=== PATIENT | female | born 1960 | race Caucasian/White ===

== ENCOUNTER 2016-07-31 07:03 | Emergency (ER) | payer BC ==
[2016-07-31 07:11] VITALS: BP 139/62
--- NOTE | 2016-07-31 11:35 | ED ---
Artis Dimas Alok, scribed for Gato Vuong MD on 07/31/16 at 0750 . Lower Extremity - HPI Summary HPI Summary: 56F presents to the ED with numbness/weakness/pain of the left leg. Pt states that her left leg has been in pain since May 2016 following last chemotherapy session and progressively worsening since. Pt notes pain through her left ankle , calf, and knee. Pt states her pain is worse with bearing weight and at nighttime. Pt also notes swelling at the ball of her left foot. PMHx includes 2014 uterine CA followed by a full hysterectomy 2014. CA then spread to her vagina, lymph nodes, and large intestine. Pt had surgery in 2016 followed by 7 weeks of radiation and 5 sessions of chemotherapy. Pt takes Gabapentin. - History of Current Complaint Chief Complaint: EDGeneral Stated Complaint: LT FOOT PAIN Time Seen by Provider: 07/31/16 07:38 Hx Obtained From: Patient Onset/Duration: Worse Since - Today Severity Initially: Moderate Severity Currently: Moderate Pain Intensity: 10 Pain Scale Used: 0-10 Numeric Timing: Constant Location: Is Discrete @ - left leg Associated Signs And Symptoms: Positive: Swelling, Weakness, Knee Pain, Other - numbness Aggravating Factor(s): Standing, Ambulation, Other - night time Alleviating Factor(s): Nothing - Allergies/Home Medications Allergies/Adverse Reactions: Allergies Allergy/AdvReac Type Severity Reaction Status Date / Time Monosodium Glutamate Allergy Severe Headache Verified 08/06/15 11:13 Bee Venom Allergy Intermediate Hives Verified 08/06/15 11:13 PMH/Surg Hx/FS Hx/Imm Hx Endocrine/Hematology History: Reports: Hx Diabetes Cardiovascular History: Denies: Hx Pacemaker/ICD History: Reports: Hx Renal Disease - RT DISTAL URETERAL STRICTURE., Other Problems/Disorders - Uterine Cancer Musculoskeletal History: Reports: Hx Arthritis - RT HAND Sensory History: Reports: Hx Contacts or Glasses - CONTACTS, WILL WEAR GLASSES DAY OF SURGERY Denies: Hx Hearing Aid Opthamlomology History: Reports: Hx Contacts or Glasses - CONTACTS, WILL WEAR GLASSES DAY OF SURGERY Neurological History: Reports: Other Neuro Impairments/Disorders - concussions x2 Psychiatric History: Reports: Hx Depression Denies: Hx Eating Disorder, Hx Panic Disorder, Hx of Violent Episodes Against Others - Cancer History Cancer Type, Location and Year: UTERINE, 2013 Hx Chemotherapy: No Hx Radiation Therapy: Yes - Surgical History Surgery Procedure, Year, and Place: APPENDECTOMY,. ORAL SURGERY,. SINUS SURGERY,. CARPAL TUNNEL RELEASE,. HYSTERECTOMY Hx Anesthesia Reactions: No Infectious Disease History: No Infectious Disease History: Denies: Traveled Outside the [place] in Last 30 Days - Family History Known Family History: Negative: Cardiac Disease, Hypertension, Diabetes - Social History Occupation: Employed Full-time Lives: With Family Alcohol Use: Rare Alcohol Amount: OCCASSIONALLY 1 DRINK/WEEK Substance Use Type: Reports: None Smoking Status (MU): Never Smoked Tobacco Have You Smoked in the Last Year: No Review of Systems Negative: Fever Positive: Edema, Other - left leg pain/numbness/weakness All Other Systems Reviewed And Are Negative: Yes Physical Exam - Summary Physical Exam Summary: VITAL SIGNS: Reviewed. GENERAL: Patient is a well-developed and nourished female who is lying comfortable in the stretcher. Patient is not in any acute respiratory distress. HEAD AND FACE: No signs of trauma. No ecchymosis, hematomas or skull depressions. No sinus tenderness. EYES: PERRLA, EOMI x 2, No injected conjunctiva, no nystagmus. EARS: Hearing grossly intact. Ear canals and tympanic membranes are within normal limits. MOUTH: Oropharynx within normal limits. NECK: Supple, trachea is midline, no adenopathy, no JVD, no carotid bruit, no c- spine tenderness, neck with full ROM. CHEST: Symmetric, no tenderness at palpation LUNGS: Clear to auscultation bilaterally. No wheezing or crackles. CVS: Regular rate and rhythm, S1 and S2 present, no murmurs or gallops appreciated. ABDOMEN: Soft, non-tender. No signs of distention. No rebound no guarding, and no masses palpated. Bowel sounds are normal. EXTREMITIES: FROM in all major joints, no edema, no cyanosis or clubbing. NEURO: Alert and oriented x 3. No acute neurological deficits. Speech is normal and follows commands. SKIN: Dry and warm Triage Information Reviewed: Yes Vital Signs On Initial Exam: Initial Vitals Temp Pulse Resp BP Pulse Ox 96.9 F 89 20 139/62 98 07/31/16 07:05 07/31/16 07:05 07/31/16 07:05 07/31/16 07:05 07/31/16 07:05 Vital Signs Reviewed: Yes Diagnostics - Vital Signs Vital Signs Temp Pulse Resp BP Pulse Ox 07/31/16 07:11 97.7 F 92 20 139/62 99 07/31/16 07:05 96.9 F 89 20 139/62 98 - Laboratory Lab Statement: Any lab studies that have been ordered have been reviewed, and results considered in the medical decision making process. Lower Extremity Course/Dx - Course Assessment/Plan: 56F presents to the ED with numbness/weakness/pain of the left leg. Pt states that her left leg has been in pain since May 2016 following last chemotherapy session and progressively worsening since. Pt notes pain through her left ankle, calf, and knee. Pt states her pain is worse with bearing weight and at nighttime. Pt also notes swelling at the ball of her left foot. PMHx includes 2014 uterine CA followed by a full hysterectomy 2014. CA then spread to her vagina, lymph nodes, and large intestine. Pt had surgery in 2015 followed by 7 weeks of radiation and 5 sessions of chemotherapy. Pt takes Gabapentin. Checked for pulses, both femoral and pedal pulse present. Pt has h/ o neruopathy and takes neurotin or gabapentin 200 mg per day. Discussed possibilty of increasing dose to 300 mg per day to better control chronic neuropathy. Pt has pain control clinic in [place] and no FU here. Gave [place] [facility] [place] understands and agrees. Pt is hemodynamically stable and was discharged home. - Diagnoses Differential Diagnosis/HQI/PQRI: Positive: Fracture (Closed), Sprain, Strain, Other - Neuropathy Provider Diagnoses: Neuropathy Discharge - Discharge Plan Condition: Stable Disposition: HOME Patient Education Materials: Peripheral Neuropathy (ED) Additional Instructions: [facility] [address] , [place] [address] The documentation as recorded by the Artis miller Alok accurately reflects the service I personally performed and the decisions made by , Gato Vuong MD.
== END 2016-07-31 08:30 | disposition home or self-care (01) ==
LOC: ED 07:03
DX: E11.40 Type 2 diabetes mellitus with diabetic neuropathy, unspecified (principal); N28.9 Disorder of kidney and ureter, unspecified; M19.041 Primary osteoarthritis, right hand; F32.9 Major depressive disorder, single episode, unspecified; Z90.710 Acquired absence of both cervix and uterus
CPT/HCPCS: 99281

== ENCOUNTER 2017-05-06 12:03 | Emergency (ER) | payer BC ==
[2017-05-06] MEDS ORDERED: NS 0.9% 1000 ML* 1,000 ML IV ONE (12:35)
[2017-05-06] MEDS ORDERED: Morphine INJ* 4 MG/ML 1 ML SYRINGE (NEW SYRINGE VERSION) IV ONE (12:38)
[2017-05-06] MEDS ORDERED: Ondansetron INJ* 2 MG/ML VIAL IV ONE (12:38)
--- NOTE | 2017-05-06 13:15 | RAD ---
Indication: Shortness of breath, bilateral flank pain and pelvis pain for one week. History of malignant neoplasm of the endometrium. Comparison: July 30, 2015 CT. August 06, 2008 chest radiograph. Technique: Upright AP 1255 hours Report: Tip of the LEFT chest port is at the level of the inferior segment of the superior vena cava directed central. Elevated lung volumes with upper lung zone rarefaction of interstitial markings. 0.7 cm well-circumscribed nodular density at the RIGHT lower lung zone peripherally at the level of the fifth intercostal space is new compared with the prior exams. The lungs and pleural spaces are otherwise clear. The heart, pulmonary vasculature, and mediastinal contours are unremarkable. Thoracic degenerative spondylosis. IMPRESSION: 1. Stigmata of probable obstructive lung disease. 2. No evidence for pneumonia or pulmonary edema. 3. 0.7 cm well-circumscribed nodular density at the RIGHT lower lung zone peripherally at the level of the fifth intercostal space is new compared with the prior exams. Consider CT chest for further assessment.
[2017-05-06 13:29] LABS: ABS Basophils 0 10^3/ul (0-0.2); ABS Eosinophils 0 10^3/ul (0-0.6); ABS Lymphocytes 0.8 10^3/ul (1.0-4.8); ABS Monocytes 0.3 10^3/ul (0-0.8); ABS Neutrophils 4.7 10^3/ul (1.5-7.7); ABS Nucleated RBC 0 10^3/ul; Eosinophil % 0.5 % (0-6); Hematocrit 40 % (35-47); Hemoglobin 13.8 g/dl (12.0-16.0); Lymphocyte % 14.1 % (25-47); Mean Corpuscular HGB Conc 35 g/dl (31-36); Mean Corpuscular Hemoglobin 31 pg (27-31); Mean Corpuscular Volume 89 fL (80-97); Mean Platelet Volume 8.1 um3 (7.4-10.4); Nucleated Red Blood Cells % 0; Platelet Count 194 10^3/ul (150-450); Red Blood Count 4.49 10^6/ul (4.0-5.4); Red Cell Distribution Width 13 % (10.5-15); White Blood Count 5.9 10^3/ul (3.5-10.8)
[2017-05-06 13:51] LABS: EGFR Non-African American 84.8 (>60)
[2017-05-06 13:58] LABS: Urine Appearance Cloudy; Urine Blood Negative (Negative); Urine Color Yellow; Urine Ketones 1+ (Negative); Urine Protein Negative (Negative); Urine Specific Gravity 1.027 (1.010-1.030); Urine Urobilinogen Negative (Negative)
[2017-05-06] MEDS ORDERED: Iodixanol* (CONTRAST) 320 MG/ML 100 ML SDV IV ONE (14:08)
--- NOTE | 2017-05-06 15:45 | RAD ---
HISTORY: Uterine cancer, abdominal pain, diverticulitis, shortness of breath COMPARISONS: July 30, 2015 TECHNIQUE: Multiple contiguous axial CT scans were obtained of the chest, abdomen, and pelvis after the administration of intravenous contrast. Coronal and sagittal multiplanar reformations are submitted for review.. Oral contrast was administered. Delayed images were obtained through the abdomen and pelvis. FINDINGS: CHEST NECK AND THYROID: The lower neck and thyroid are unremarkable. CHEST WALL: A left-sided chest port is noted. HEART AND PERICARDIUM: The heart is unremarkable. AORTA AND PULMONARY VASCULATURE: There is no pulmonary arterial filling defect to suggest pulmonary was. The aorta is unremarkable. MEDIASTINUM: There is no mediastinal lymphadenopathy by size criteria. ZORAIDA: There is no hilar lymphadenopathy by size criteria. AIRWAY AND ESOPHAGUS: The airway is unremarkable, without endobronchial filling defect. The esophagus is grossly normal. LUNG PARENCHYMA: There has been interval development of multiple pulmonary parenchymal nodules throughout both lungs, measuring up to 1 cm in size. PLEURA: No pleural abnormalities are noted. BONES AND SOFT TISSUES: Degenerative changes are noted of the spine. There is a scoliotic curvature of the spine. ABDOMEN/PELVIS: LIVER: The liver is homogeneously enlarged measuring 20 cm in long axis. There is no appreciable focal hepatic parenchymal mass. BILE DUCTS: There is no intrahepatic or extrahepatic biliary dilatation. GALLBLADDER: The gallbladder is normal, without pericholecystic inflammatory change. PANCREAS: The pancreas is normal, without mass or ductal dilatation. SPLEEN: Normal in size and appearance. UPPER GI TRACT: Evaluation of the gastrointestinal tract is limited by incomplete gastric distention. The upper GI tract is unremarkable. SMALL BOWEL & MESENTERY: The small bowel is normal in contour, course, and caliber. There is no obstruction or dilatation. COLON: The colon is normal in contour, course, caliber. There is no pericolonic inflammatory change. ADRENALS: Normal bilaterally. KIDNEYS: There is post surgical change to the distal colon. BLADDER: There appears to be a neobladder. PELVIC ORGANS: The soft tissue densities noted at the vaginal cuff on the previous examination are no longer evident. AORTA: The aorta is normal. IVC: Unremarkable LYMPH NODES: There is no lymphadenopathy by size criteria. The retroperitoneal lymph nodes nodes noted on the previous examination are no longer clearly evident. ABDOMINAL WALL: There is no evidence for abdominal wall hernia. BONES AND SOFT TISSUES: Degenerative changes are noted of the spine OTHER: None IMPRESSION: 1. NO PULMONARY ARTERIAL FILLING DEFECT TO SUGGEST PULMONARY EMBOLISM. 2. THERE HAS BEEN INTERVAL DEVELOPMENT OF MULTIPLE PULMONARY PARENCHYMAL NODULES THROUGHOUT THE LUNGS CONSISTENT WITH METASTATIC DISEASE TO THE LUNGS. 3. HEPATOMEGALY. 4. NO ACUTE CT PATHOLOGY OF THE ABDOMEN AND PELVIS.
[2017-05-06] MEDS ORDERED: Sulfamethox/Trimethoprim DS 800/160* TAB PO ONE (16:40)
--- NOTE | 2017-05-06 17:01 | ED ---
Tiffanie Dimas Gabriel, scribed for Shaka Jeffery on 05/06/17 at 1232 . Back Pain - HPI Summary HPI Summary: This patient is a 57 year old F presenting to [facility] with a chief complaint of bilateral flank pain that began a week ago. Pt had uterine cancer in 2016 and after her first round of chemo she experienced a similar pain that was dx as kidney infection. The patient rates the pain 10/10 in severity. Symptoms alleviated by nothing, pt has tried OTC pain medications. Patient reports SOB, pelvic pain, and mild edema in LEs. Patient denies hematuria, blood in stool, and CP. - History of Current Complaint Chief Complaint: EDFlankPain Stated Complaint: ABD PAIN Time Seen by Provider: 05/06/17 12:15 Hx Obtained From: Patient Onset/Duration: Still Present Onset/Duration: Started Weeks Ago, Still Present Timing: Constant Severity Initially: Severe Severity Currently: Severe Pain Intensity: 10 Pain Scale Used: 0-10 Numeric Alleviating Symptom(s): Nothing Associated Signs And Symptoms: Positive: Other - SOB, pelvic pain, mild edema - Allergies/Home Medications Allergies/Adverse Reactions: Allergies Allergy/AdvReac Type Severity Reaction Status Date / Time bee pollen Allergy Hives Verified 05/06/17 12:06 monosodium glutamate Allergy Headache Verified 05/06/17 12:06 PMH/Surg Hx/FS Hx/Imm Hx Endocrine/Hematology History: Reports: Hx Diabetes Cardiovascular History: Denies: Hx Pacemaker/ICD History: Reports: Hx Renal Disease - RT DISTAL URETERAL STRICTURE., Other Problems/Disorders - Uterine Cancer Musculoskeletal History: Reports: Hx Arthritis - RT HAND Sensory History: Reports: Hx Contacts or Glasses - CONTACTS, WILL WEAR GLASSES DAY OF SURGERY Denies: Hx Hearing Aid Opthamlomology History: Reports: Hx Contacts or Glasses - CONTACTS, WILL WEAR GLASSES DAY OF SURGERY Neurological History: Reports: Other Neuro Impairments/Disorders - concussions x2 Psychiatric History: Reports: Hx Depression Denies: Hx Eating Disorder, Hx Panic Disorder, Hx of Violent Episodes Against Others - Cancer History Cancer Type, Location and Year: UTERINE, 2014 Hx Chemotherapy: No Hx Radiation Therapy: Yes - Surgical History Surgery Procedure, Year, and Place: APPENDECTOMY,. ORAL SURGERY,. SINUS SURGERY,. CARPAL TUNNEL RELEASE,. HYSTERECTOMY Hx Anesthesia Reactions: No Infectious Disease History: No Infectious Disease History: Denies: Traveled Outside the US in Last 30 Days - Family History Known Family History: Positive: None Negative: Cardiac Disease, Hypertension, Diabetes - Social History Lives: With Family Alcohol Use: Rare Alcohol Amount: OCCASSIONALLY 1 DRINK/WEEK Substance Use Type: Reports: None Smoking Status (MU): Never Smoked Tobacco Have You Smoked in the Last Year: No Review of Systems Negative: Chest Pain Positive: Shortness Of Breath Gastrointestinal: Negative - blood in stool Positive: flank pain - bilateral . Negative: hematuria Positive: Edema - mild edema in LE 's , Other - pelvic pain, All Other Systems Reviewed And Are Negative: Yes Physical Exam - Summary Physical Exam Summary: Appearance: Well appearing, no pain distress Skin: warm, dry, reflects adequate perfusion Head/face: normal Eyes: EOMI, UMER ENT: normal Neck: supple, non-tender Respiratory: CTA, breath sounds present Cardiovascular: RRR, pulses symmetrical Abdomen: soft w/ diffuse tenderness Bowel: present Musculoskeletal: normal, strength/ROM intact Neuro: normal, sensory motor intact, A&Ox3 Triage Information Reviewed: Yes Vital Signs On Initial Exam: Initial Vitals Temp Pulse Resp BP Pulse Ox 96.6 F 67 22 127/59 100 05/06/17 12:06 05/06/17 12:06 05/06/17 12:06 05/06/17 12:06 05/06/17 12:06 Vital Signs Reviewed: Yes Diagnostics - Vital Signs Vital Signs Temp Pulse Resp BP Pulse Ox 05/06/17 12:22 66 30 100 05/06/17 12:06 96.6 F 67 22 127/59 100 - Laboratory Lab Results: Lab Results 05/06/17 05/06/17 05/06/17 Range/Units 13:05 13:05 13:05 WBC 5.9 (3.5-10.8) 10^3/ul RBC 4.49 (4.0-5.4) 10^6/ul Hgb 13.8 (12.0-16.0) g/dl Hct 40 (35-47) % MCV 89 (80-97) fL MCH 31 (27-31) pg MCHC 35 (31-36) g/dl RDW 13 (10.5-15) % Plt Count 194 (150-450) 10^3/ul MPV 8.1 (7.4-10.4) um3 Neut % (Auto) 80.7 (38-83) % Lymph % (Auto) 14.1 L (25-47) % [place] % (Auto) 4.6 (0-7) % Eos % (Auto) 0.5 (0-6) % Baso % (Auto) 0.1 (0-2) % Absolute Neuts (auto) 4.7 (1.5-7.7) 10^3/ul Absolute Lymphs (auto) 0.8 L (1.0-4.8) 10^3/ul Absolute Monos (auto) 0.3 (0-0.8) 10^3/ul Absolute Eos (auto) 0 (0-0.6) 10^3/ul Absolute Basos (auto) 0 (0-0.2) 10^3/ul Absolute Nucleated RBC 0 10^3/ul Nucleated RBC % 0 INR (Anticoag Therapy) 0.90 (0.77-1.02) APTT 28.1 (26.0-36.3) seconds D-Dimer, Quantitative < 200 (Less Than 230) ng/mL Sodium 138 (133-145) mmol/L Potassium 4.1 (3.5-5.0) mmol/L Chloride 101 (101-111) mmol/L Carbon Dioxide 27 (22-32) mmol/L Anion Gap 10 (2-11) mmol/L BUN 14 (6-24) mg/dL Creatinine 0.71 (0.51-0.95) mg/dL Est GFR ( Amer) 109.1 (>60) Est GFR (Non-Af Amer) 84.8 (>60) BUN/Creatinine Ratio 19.7 (8-20) Glucose 311 H (70-100) mg/dL Lactic Acid (0.5-2.0) mmol/L Calcium 10.3 (8.6-10.3) mg/dL Total Bilirubin 0.60 (0.2-1.0) mg/dL AST 13 (13-39) U/L ALT 11 (7-52) U/L Alkaline Phosphatase 89 (34-104) U/L Troponin I 0.00 (<0.04) ng/mL C-Reactive Protein 1.42 (< 5.00) mg/L Total Protein 7.7 (6.4-8.9) g/dL Albumin 4.4 (3.2-5.2) g/dL Globulin 3.3 (2-4) g/dL Albumin/Globulin Ratio 1.3 (1-3) Lipase 18 (11.0-82.0) U/L Urine Color Urine Appearance Urine pH (5-9) Ur Specific [place] (1.010-1.030) Urine Protein (Negative) Urine Ketones (Negative) Urine Blood (Negative) Urine Nitrate (Negative) Urine Bilirubin (Negative) Urine Urobilinogen (Negative) Ur Leukocyte Esterase (Negative) Urine WBC (Auto) (Absent) Urine RBC (Auto) (Absent) Urine Bacteria (Absent) Urine Glucose (Negative) Urine Ascorbic Acid (Negative) 05/06/17 05/06/17 Range/Units 13:05 13:45 WBC (3.5-10.8) 10^3/ul RBC (4.0-5.4) 10^6/ul Hgb (12.0-16.0) g/dl Hct (35-47) % MCV (80-97) fL MCH (27-31) pg MCHC (31-36) g/dl RDW (10.5-15) % Plt Count (150-450) 10^3/ul MPV (7.4-10.4) um3 Neut % (Auto) (38-83) % Lymph % (Auto) (25-47) % [place] % (Auto) (0-7) % Eos % (Auto) (0-6) % Baso % (Auto) (0-2) % Absolute Neuts (auto) (1.5-7.7) 10^3/ul Absolute Lymphs (auto) (1.0-4.8) 10^3/ul Absolute Monos (auto) (0-0.8) 10^3/ul Absolute Eos (auto) (0-0.6) 10^3/ul Absolute Basos (auto) (0-0.2) 10^3/ul Absolute Nucleated RBC 10^3/ul Nucleated RBC % INR (Anticoag Therapy) (0.77-1.02) APTT (26.0-36.3) seconds D-Dimer, Quantitative (Less Than 230) ng/mL Sodium (133-145) mmol/L Potassium (3.5-5.0) mmol/L Chloride (101-111) mmol/L Carbon Dioxide (22-32) mmol/L Anion Gap (2-11) mmol/L BUN (6-24) mg/dL Creatinine (0.51-0.95) mg/dL Est GFR ( Amer) (>60) Est GFR (Non-Af Amer) (>60) BUN/Creatinine Ratio (8-20) Glucose (70-100) mg/dL Lactic Acid 2.0 (0.5-2.0) mmol/L Calcium (8.6-10.3) mg/dL Total Bilirubin (0.2-1.0) mg/dL AST (13-39) U/L ALT (7-52) U/L Alkaline Phosphatase (34-104) U/L Troponin I (<0.04) ng/mL C-Reactive Protein (< 5.00) mg/L Total Protein (6.4-8.9) g/dL Albumin (3.2-5.2) g/dL Globulin (2-4) g/dL Albumin/Globulin Ratio (1-3) Lipase (11.0-82.0) U/L Urine Color Yellow Urine Appearance Cloudy Urine pH 7.0 (5-9) Ur Specific [place] 1.027 (1.010-1.030) Urine Protein Negative (Negative) Urine Ketones 1+ A (Negative) Urine Blood Negative (Negative) Urine Nitrate Positive A (Negative) Urine Bilirubin Negative (Negative) Urine Urobilinogen Negative (Negative) Ur Leukocyte Esterase 2+ A (Negative) Urine WBC (Auto) 3+(>20/hpf) A (Absent) Urine RBC (Auto) 1+(3-5/hpf) A (Absent) Urine Bacteria 1+ A (Absent) Urine Glucose 3+(>=500 mg/dl) A (Negative) Urine Ascorbic Acid * A (Negative) Result Diagrams: 05/06/17 13:05 05/06/17 13:05 Lab Statement: Any lab studies that have been ordered have been reviewed, and results considered in the medical decision making process. - Radiology CXR Radiology Interpretation Completed By: Radiologist - 1. Stigmata of probable obstructive lung disease. 2. No evidence for pneumonia or pulmonary edema. 3. 0.7 cm well-circumscribed nodular density at the RIGHT lower lung zone peripherally at the level of the fifth intercostal space is new compared with the prior exams. Consider CT chest for further assessment. ED physician has reviewed this radiology report. - CT CTA chest/abd/pelvis CT Interpretation Completed By: Radiologist - 1. NO PULMONARY ARTERIAL FILLING DEFECT TO SUGGEST PULMONARY EMBOLISM. 2. THERE HAS BEEN INTERVAL DEVELOPMENT OF MULTIPLE PULMONARY PARENCHYMAL NODULES THROUGHOUT THE LUNGS CONSISTENT WITH METASTATIC DISEASE TO THE LUNGS. 3. HEPATOMEGALY. 4. NO ACUTE CT PATHOLOGY OF THE ABDOMEN AND PELVIS. ED physician has reviewed this radiology report. - EKG 12:46 Cardiac Rate: NL EKG Rhythm: Sinus Rhythm - at 63 BPM EKG Interpretation: No acute changes Re-Evaluation - Re-Evaluation First Eval Re-Evaluation Time: 16:36 Change: Unchanged Comment: I explained to the patient her cancer metastasized to the lungs and discussed further care. Back Pain Course/Dx - Course Assessment/Plan: Pt present to ED with back pain and hx of cancer. An EKG reveals NSR. CXR reveals, per radiologist, 1. Stigmata of probable obstructive lung disease. 2. No evidence for pneumonia or pulmonary edema. 3. 0.7 cm well- circumscribed nodular density at the RIGHT lower lung zone peripherally at. the level of the fifth intercostal space is new compared with the prior exams. Consider CT. chest for further assessment. CTA Chest/ABD/ Pelvis reveals, 1. NO PULMONARY ARTERIAL FILLING DEFECT TO SUGGEST PULMONARY EMBOLISM. 2. THERE HAS BEEN INTERVAL DEVELOPMENT OF MULTIPLE PULMONARY PARENCHYMAL NODULES. THROUGHOUT THE LUNGS CONSISTENT WITH METASTATIC DISEASE TO THE LUNGS. 3. HEPATOMEGALY. 4. NO ACUTE CT PATHOLOGY OF THE ABDOMEN AND PELVIS. I explained to the patient about the recent metastases of her cancer and suggested she follow up with oncology. She decided to contact her own oncologist and would not like to use any through [facility] [place]. UA and blood work obtained. In the ED course the patient was given morphine, Bactrim, Zofran, and IV fluids. Dx UTI, hx uterine cancer with metastases to lungs, ABD pain. Patient will be discharged and follow up with oncologist. The patient is agreeable with this plan. - Diagnoses Differential Diagnosis/HQI/PQRI: Positive: Neoplasm, Renal Colic, Other - diverticulitis Provider Diagnoses: History of uterine cancer, UTI (urinary tract infection), Cancer with pulmonary metastases, Abdominal pain Discharge - Sign-Out/Discharge Documenting (check all that apply): Discharge - Discharge Plan Condition: Stable Disposition: HOME Prescriptions: HYDROcodone/ACETAMIN 5-325 MG* [[place] 5-325 TAB*] 1 tab PO Q8H PRN #15 tab MDD 3 PRN Reason: Pain Sulfamethox/Trimethoprim DS* [Bactrim DS 800/160 TAB*] 1 tab PO BID #10 tab Patient Education Materials: Urinary Tract Infection in Women (ED), Lung Cancer (DC) Additional Instructions: Please follow up with your oncologist JEFFRY. RETURN TO THE EMERGENCY DEPARTMENT FOR CHANGING OR WORSENING SYMPTOMS - Billing Disposition and Condition Condition: STABLE Disposition: HOME The documentation as recorded by the Tiffanie miller Gabriel accurately reflects the service I personally performed and the decisions made by , Shaka Jeffery.
[2017-05-06 17:03] VITALS: BP 114/66
--- NOTE | 2017-05-08 09:22 | PN ---
Progress Note - Progress Note Date of Service: 05/06/17 Note: Urine culture preliminary grew Escherichia coli over 100,000 Patient was placed on Bactrim prior to discharge We'll await sensitivities
--- NOTE | 2017-05-09 08:48 | ED ---
Progress - Progress Note Progress Note: Pt admitted for MRSA/Staph bacteremia. Has been started on IV vancomycin. Jolanta Fowler CONFERENCE DIRECTOR aware. Re-Evaluation - Re-Evaluation First Eval Re-Evaluation Time: 16:36 Change: Unchanged Comment: I explained to the patient her cancer metastasized to the lungs and discussed further care. Course/Dx - Diagnoses Provider Diagnoses: History of uterine cancer, UTI (urinary tract infection), Cancer with pulmonary metastases, Abdominal pain Discharge - Sign-Out/Discharge Documenting (check all that apply): Post-Discharge Follow Up - Discharge Plan Condition: Stable Disposition: HOME Prescriptions: HYDROcodone/ACETAMIN 5-325 MG* [[place] 5-325 TAB*] 1 tab PO Q8H PRN #15 tab MDD 3 PRN Reason: Pain Sulfamethox/Trimethoprim DS* [Bactrim DS 800/160 TAB*] 1 tab PO BID #10 tab Patient Education Materials: Urinary Tract Infection in Women (ED), Lung Cancer (DC) Referrals: No Primary Care Phys,NOPCP [Primary Care Provider] - Additional Instructions: Please follow up with your oncologist JEFFRY. RETURN TO THE EMERGENCY DEPARTMENT FOR CHANGING OR WORSENING SYMPTOMS - Billing Disposition and Condition Condition: STABLE Disposition: HOME
== END 2017-05-06 17:01 | disposition home or self-care (01) ==
LOC: ED 12:03
DX: N39.0 Urinary tract infection, site not specified (principal); Z85.42 Personal history of malignant neoplasm of other parts of uterus; R10.9 Unspecified abdominal pain; C34.90 Malignant neoplasm of unspecified part of unspecified bronchus or lung; Z86.14 Personal history of Methicillin resistant Staphylococcus aureus infection
CPT/HCPCS: 36415; 71045; 71275; 74177; 80053; 81003; 81015; 83605; 83690; 84484; 85025; 85379; 85610; 85730; 86140; 87077; 87086; 87186; 93005; 96374; 96375; 99283; A9270-GY; J2270; Q9967

== ENCOUNTER 2017-06-09 07:19 | Emergency (ER) | payer BC ==
[2017-06-09] MEDS ORDERED: Ondansetron ODT TAB* 4 MG SL ONE (07:33)
[2017-06-09] MEDS ORDERED: Ketorolac INJ* 60 MG/2 ML VIAL IM ONE (07:33)
[2017-06-09 08:15] LABS: Urine Appearance Clear; Urine Blood Negative (Negative); Urine Color Yellow; Urine Ketones Negative (Negative); Urine Protein Negative (Negative); Urine Specific Gravity 1.032 (1.010-1.030); Urine Urobilinogen Negative (Negative)
[2017-06-09] MEDS ORDERED: NS 0.9% 1000 ML* 2,000 ML IV ONE (09:09)
[2017-06-09] MEDS ORDERED: cefTRIAXone(*) 1 GM in NS 0.9% 50 ML* 50 ML IVPB ONE (09:12)
[2017-06-09 09:57] LABS: ABS Basophils 0 10^3/ul (0-0.2); ABS Eosinophils 0 10^3/ul (0-0.6); ABS Lymphocytes 0.8 10^3/ul (1.0-4.8); ABS Monocytes 0.3 10^3/ul (0-0.8); ABS Neutrophils 4.2 10^3/ul (1.5-7.7); ABS Nucleated RBC 0 10^3/ul; Eosinophil % 0.9 % (0-6); Hematocrit 39 % (35-47); Lymphocyte % 15.2 % (25-47); Mean Corpuscular HGB Conc 33 g/dl (31-36); Mean Corpuscular Hemoglobin 30 pg (27-31); Mean Corpuscular Volume 89 fL (80-97); Mean Platelet Volume 8.1 um3 (7.4-10.4); Nucleated Red Blood Cells % 0; Platelet Count 195 10^3/ul (150-450); Red Blood Count 4.39 10^6/ul (4.0-5.4); Red Cell Distribution Width 13 % (10.5-15); White Blood Count 5.4 10^3/ul (3.5-10.8)
[2017-06-09 10:08] LABS: INR 0.97 (0.77-1.02)
[2017-06-09 10:13] LABS: EGFR Non-African American 97.4 (>60)
--- NOTE | 2017-06-09 12:15 | RAD ---
Indication: LEFT flank pain. History of uterine cancer cystectomy and urinary bladder reconstruction. Comparison: May 06, 2017 CT. Technique: Ultrasound kidneys and urinary bladder. Report: 11.7 x 4.3 x 5.5 cm RIGHT kidney demonstrates normal cortical echogenicity. Slight pelvicaliectasis. No conspicuous stones or focal renal lesions. 13.3 x 5.7 x 5.3 cm LEFT kidney demonstrates normal cortical echogenicity. No conspicuous stones or hydronephrosis. No focal renal lesions evident. Negative for perinephric fluid. The reconstructed urinary bladder could not be visualized. Based on the sonographic images at the pelvis and correlation with May 06, 2017 CT the acoustic window is obscured due to gas containing bowel loops anterior to the neobladder. IMPRESSION: 1. Slight pelvic caliectasis at the RIGHT kidney. 2. Negative for LEFT hydronephrosis. 3. The neobladder could not be visualized likely due to overlying gas containing bowel loops based on correlation with prior CT.
--- NOTE | 2017-06-09 13:34 | ED ---
Yordy Dimas Jennifer, scribed for Viet Roberts MD on 06/09/17 at 0844 . GI/ HPI - HPI Summary HPI Summary: The patient is a 57 year old female who complains of left flank pain and urinary symptoms for about two weeks that worsened this morning. The patient explains that she had uterine cancer in 2016 that she had surgery on, but a recent CT showed concerns of returning cancer. She describes that the pain is from her left hip up through her waist. She states the pain is worsened by standing and over the course of the day when she is busy. The patient additionally complains of increased urgency, back pain, fever, feeling cold, nausea, abdominal pain, shortness of breath, and fatigue. The patient denies dysuria. She has an appointment with Dr. Bautista, oncologist, for Tuesday in four days. - History of Current Complaint Chief Complaint: EDFlankPain Time Seen by Provider: 06/09/17 08:37 Stated Complaint: FLANK PAIN Hx Obtained From: Patient Onset/Duration: Started Days Ago - 1 day, Started Weeks Ago - 2 weeks, Still Present, Worse Since - this morning Timing: Constant Severity: Severe Current Severity: Severe Pain Intensity: 10 Location of Pain: Diffuse, Flank - Left Associated Signs and Symptoms: Positive: Other: - increased urgency, back pain, fever, feeling cold, nausea, abdominal pain, shortness of breath, and fatigue. NEGATIVE: dysuria Additional Signs & Symptoms: Positive: Other: - increased urgency, back pain, fever, feeling cold, nausea, abdominal pain, shortness of breath, and fatigue. NEGATIVE: dysuria Aggravating Factor(s): Walking/Exertion Alleviating Factor(s): Nothing - Additional Pertinent History Primary Care Physician: [id number] - Allergy/Home Medications Allergies/Adverse Reactions: Allergies Allergy/AdvReac Type Severity Reaction Status Date / Time bee pollen Allergy Hives Verified 06/09/17 07:21 monosodium glutamate Allergy Headache Verified 06/09/17 07:21 Home Medications: Home Medications Glucosamine CAP (NF) 1 cap PO DAILY 06/09/17 [History Confirmed 06/09/17] PMH/Surg Hx/FS Hx/Imm Hx Endocrine/Hematology History: Reports: Hx Diabetes Cardiovascular History: Denies: Hx Hypertension, Hx Pacemaker/ICD History: Reports: Hx Renal Disease - RT DISTAL URETERAL STRICTURE., Other Problems/Disorders - Uterine Cancer Musculoskeletal History: Reports: Hx Arthritis - RT HAND Sensory History: Reports: Hx Contacts or Glasses - CONTACTS, WILL WEAR GLASSES DAY OF SURGERY Denies: Hx Hearing Aid Opthamlomology History: Reports: Hx Contacts or Glasses - CONTACTS, WILL WEAR GLASSES DAY OF SURGERY Neurological History: Reports: Other Neuro Impairments/Disorders - concussions x2 Psychiatric History: Reports: Hx Depression Denies: Hx Eating Disorder, Hx Panic Disorder, Hx of Violent Episodes Against Others - Cancer History Cancer Type, Location and Year: UTERINE, 2014 Hx Chemotherapy: No Hx Radiation Therapy: Yes - Surgical History Surgery Procedure, Year, and Place: APPENDECTOMY,. ORAL SURGERY,. SINUS SURGERY,. CARPAL TUNNEL RELEASE,. HYSTERECTOMY Hx Anesthesia Reactions: No Infectious Disease History: No Infectious Disease History: Denies: Traveled Outside the [place] in Last 30 Days - Family History Known Family History: Negative: Cardiac Disease, Hypertension, Diabetes - Social History Occupation: Employed Full-time Alcohol Use: Rare Alcohol Amount: OCCASSIONALLY 1 DRINK/WEEK Substance Use Type: Reports: None Smoking Status (MU): Never Smoked Tobacco Have You Smoked in the Last Year: No Review of Systems Positive: Fever, Fatigue, Other - Feeling cold Positive: Shortness Of Breath Positive: Abdominal Pain, Nausea Positive: flank pain - left, urgency. Negative: dysuria All Other Systems Reviewed And Are Negative: Yes Physical Exam - Summary Physical Exam Summary: General: mildly ill-appearing. no pain distress Skin: warm, color reflects adequate perfusion, dry Head: normal Eyes: EOMI, UMER ENT: normal Neck: supple, nontender Respiratory: CTA, breath sounds present Cardiovascular: RRR Abdomen: soft, tender in suprapubic region Bowel: present Musculoskeletal: normal, strength/ROM intact Neurological: Tender to both flanks, much more so on the left flank. sensory/ motor intact, A&O x3 Psychological: affect/mood appropriate Triage Information Reviewed: Yes Vital Signs On Initial Exam: Initial Vitals Temp Pulse Resp BP Pulse Ox 96.9 F 72 16 133/70 100 06/09/17 07:21 06/09/17 07:21 06/09/17 07:21 06/09/17 07:21 06/09/17 07:21 Vital Signs Reviewed: Yes Diagnostics - Vital Signs Vital Signs Temp Pulse Resp BP Pulse Ox 06/09/17 07:21 96.9 F 72 16 133/70 100 - Laboratory Lab Results: Lab Results 06/09/17 Range/Units 07:50 Urine Color Yellow Urine Appearance Clear Urine pH 6.0 (5-9) Ur Specific [place] 1.032 H (1.010-1.030) Urine Protein Negative (Negative) Urine Ketones Negative (Negative) Urine Blood Negative (Negative) Urine Nitrate Positive A (Negative) Urine Bilirubin Negative (Negative) Urine Urobilinogen Negative (Negative) Ur Leukocyte Esterase Trace A (Negative) Urine WBC (Auto) 3+(>20/hpf) A (Absent) Urine RBC (Auto) Trace(0-2/hpf) (Absent) Ur Squamous Epith Cells Present A (Absent) Urine Bacteria 1+ A (Absent) Urine Glucose 3+(>=500 mg/dl) A (Negative) Result Diagrams: 06/09/17 09:35 06/09/17 09:35 Lab Statement: Any lab studies that have been ordered have been reviewed, and results considered in the medical decision making process. - Additional Comments Diagnostic Additional Comments: Abdomen/bladder US. Interpreted by a radiologist. IMPRESSION: 1. Slight pelvic caliectasis at the RIGHT kidney. 2. Negative for LEFT hydronephrosis. 3. The neobladder could not be visualized likely due to overlying gas containing bowel loops based on correlation with prior CT. Dr. Roberts has reviewed this report. GIGU Course/Dx - Course Course Of Treatment: DISCUSSED RESULTS WITH THE PATIENT. DISCUSSED WITH DR BHATTI. F/U WITH DR MACIAS 06/13/17 SCHEDULED; RETURN SOONER IF WORSE. - Diagnoses Provider Diagnoses: Bilateral flank pain, UTI (urinary tract infection) - Physician Notifications Discussed Care Of Patient With: Annabelle Bhatti Time Discussed With Above Provider: 13:06 Instructed by Provider To: Other - Discussed pt care with Dr. Bhatti Discharge - Sign-Out/Discharge Documenting (check all that apply): Discharge/Admit/Transfer - Discharge Plan Condition: Stable Disposition: HOME Patient Education Materials: Flank Pain (ED), Urinary Tract Infection in Women (ED) Referrals: Landon Macias MD [Primary Care Provider] - Additional Instructions: FOLLOW UP WITH DR MACIAS ON 06/13/17, SCHEDULED. RETURN TO THE EMERGENCY DEPARTMENT FOR ANY WORSENING OF YOUR CONDITION OR QUESTIONS OR CONCERNS. - Billing Disposition and Condition Condition: STABLE Disposition: HOME The documentation as recorded by the Yordy miller Jennifer accurately reflects the service I personally performed and the decisions made by me, Viet Roberts MD.
[2017-06-09 13:48] VITALS: BP 120/69
--- NOTE | 2017-06-11 07:42 | PN ---
Progress Note - Progress Note Date of Service: 06/09/17 Note: Pt. seen in ER 06/09/17 and dx with a UTI. Was started on Bactrim. Preliminary urine culture today is growing >100,000 e. coli. Will wait for sensitivity.
== END 2017-06-09 13:46 | disposition home or self-care (01) ==
LOC: ED 07:19
DX: N39.0 Urinary tract infection, site not specified (principal); R10.84 Generalized abdominal pain; R50.9 Fever, unspecified; R10.9 Unspecified abdominal pain; R11.0 Nausea
CPT/HCPCS: 10022; 36415; 76770; 76942; 80053; 81003; 81015; 83605; 85025; 85610; 85730; 86140; 87040; 87077; 87086; 87186; 99283; A9270-GY; J0696; J1885

== ENCOUNTER 2017-09-24 12:28 | Emergency (ER) | payer SELFPAY ==
[2017-09-24] MEDS ORDERED: NS 0.9% 1000 ML* 1,000 ML IV ONE (15:10)
--- NOTE | 2017-09-24 15:12 | ED ---
Shortness of Breath - HPI Summary HPI Summary: This patient is a 57 year old F referred to [facility] by Dr. Bautista with a chief complaint of SOB that began one month ago. The patient rates the pain 10/10 in severity. Symptoms aggravated by activity. Symptoms alleviated by nothing. Patient reports mid-sternal CP, back pain, and abd cramping. Patient reports she has endometrial cancer that has metastasized to her lungs. She reports that her last chemo treatment was one month ago. - History of Current Complaint Chief Complaint: EDShortnessOfBreath Time Seen by Provider: 09/24/17 14:57 Hx Obtained From: Patient Onset/Duration: Sudden Onset, Lasting Weeks, Still Present Timing: Constant Current Severity: Severe Dyspnea At: Rest Aggrevating Factors: Movement Alleviating Factors: Nothing Associated Signs & Symptoms: Chest Pain Unrelated to Cough - Allergy/Home Medications Allergies/Adverse Reactions: Allergies Allergy/AdvReac Type Severity Reaction Status Date / Time bee pollen Allergy Hives Verified 06/09/17 07:21 monosodium glutamate Allergy Headache Verified 06/09/17 07:21 PMH/Surg Hx/FS Hx/Imm Hx Previously Healthy: No Endocrine/Hematology History: Reports: Hx Diabetes Cardiovascular History: Denies: Hx Hypertension, Hx Pacemaker/ICD History: Reports: Hx Renal Disease - RT DISTAL URETERAL STRICTURE., Other Problems/Disorders - Uterine Cancer Musculoskeletal History: Reports: Hx Arthritis - RT HAND Sensory History: Reports: Hx Contacts or Glasses - CONTACTS, WILL WEAR GLASSES DAY OF SURGERY Denies: Hx Hearing Aid Opthamlomology History: Reports: Hx Contacts or Glasses - CONTACTS, WILL WEAR GLASSES DAY OF SURGERY Neurological History: Reports: Other Neuro Impairments/Disorders - concussions x2 Psychiatric History: Reports: Hx Depression Denies: Hx Eating Disorder, Hx Panic Disorder, Hx of Violent Episodes Against Others - Cancer History Cancer Type, Location and Year: UTERINE, 2014. LUNG, 2018 Hx Chemotherapy: Yes Hx Radiation Therapy: Yes - Surgical History Surgery Procedure, Year, and Place: APPENDECTOMY,. ORAL SURGERY,. SINUS SURGERY,. CARPAL TUNNEL RELEASE,. HYSTERECTOMY Hx Anesthesia Reactions: No Infectious Disease History: No Infectious Disease History: Denies: Traveled Outside the [place] in Last 30 Days - Family History Known Family History: Negative: Cardiac Disease, Hypertension, Diabetes - Social History Occupation: Employed Full-time Lives: Alone Alcohol Use: Rare Alcohol Amount: OCCASSIONALLY 1 DRINK/WEEK Hx Substance Use: No Substance Use Type: Reports: None Hx Tobacco Use: No Smoking Status (MU): Never Smoked Tobacco Have You Smoked in the Last Year: No Review of Systems Positive: Chest Pain Positive: Shortness Of Breath Positive: Abdominal Pain Positive: Other - Positive back pain All Other Systems Reviewed And Are Negative: Yes Physical Exam - Summary Physical Exam Summary: VITAL SIGNS: Reviewed. GENERAL: Patient is a well nourished female who is lying comfortable in the stretcher. Patient is not in any acute respiratory distress. Patient appears pail and fragile. HEAD AND FACE: No signs of trauma. No ecchymosis, hematomas or skull depressions. No sinus tenderness. EYES: PERRLA, EOMI x 2, No injected conjunctiva, no nystagmus. EARS: Hearing grossly intact. Ear canals and tympanic membranes are within normal limits. MOUTH: Oropharynx within normal limits. NECK: Supple, trachea is midline, no adenopathy, no JVD, no carotid bruit, no c- spine tenderness, neck with full ROM. CHEST: Symmetric, no tenderness at palpation LUNGS: Decreased breath sounds bilaterally. No wheezing or crackles. CVS: Regular rate and rhythm, S1 and S2 present, no murmurs or gallops appreciated. ABDOMEN: Soft, non-tender. No signs of distention. No rebound no guarding, and no masses palpated. Bowel sounds are normal. EXTREMITIES: FROM in all major joints, no edema, no cyanosis or clubbing. NEURO: Alert and oriented x 3. No acute neurological deficits. Speech is normal and follows commands. SKIN: Dry and warm Triage Information Reviewed: Yes Vital Signs On Initial Exam: Initial Vitals Temp Pulse Resp BP Pulse Ox 97.1 F 74 18 115/69 100 09/24/17 12:31 09/24/17 12:31 09/24/17 12:31 09/24/17 12:31 09/24/17 12:31 Vital Signs Reviewed: Yes Diagnostics - Vital Signs Vital Signs Temp Pulse Resp BP Pulse Ox 09/24/17 12:31 97.1 F 74 18 115/69 100 - Laboratory Result Diagrams: 09/24/17 15:34 09/24/17 15:34 Lab Statement: Any lab studies that have been ordered have been reviewed, and results considered in the medical decision making process. - Radiology CXR Radiology Interpretation Completed By: Radiologist - CXR reveals, per radiologist, multiple bilateral pulmonary nodules most consistent with metastatic disease demonstrating progression from the prior chest x-ray study. These appear grossly similar to slightly worse than on the prior CT of the chest. ED physician has reviewed this radiology report. - EKG EKG Cardiac Rate: Bradycardia EKG Rhythm: Sinus Rhythm - 55 BPM EKG Interpretation: No ST elevation Re-Evaluation - Re-Evaluation First Eval Re-Evaluation Time: 16:25 Change: Unchanged Comment: Discussed plan of care and results with patient Second Eval Re-Evaluation Time: 16:32 Change: Unchanged Comment: Discussed plan of care and cancellation of the plan for a CT Third Eval Re-Evaluation Time: 17:25 Change: Unchanged Comment: Discussed results and plan of care with patient. She will sign out AMA. Course/Dx - Course Assessment/Plan: This patient is a 57-year-old female with past medical history of uterine cancer with metastasis to the lungs. She was asked to the emergency department with a chief complaint of having shortness of breath. She also reports that shes been having increased pain in the pelvic area secondary to her uterine cancer. Blood test results without any significant abnormality except for glucose of 169, lactic acid is 2.5 AST of 11. D-dimer is less than 200. Therefore I have no concerns for a PE. Chest x-ray impression: multiple bilateral pulmonary nodules most consistent with metastatic disease demonstrating progression from the prior chest x-ray study. This appears closed is similar to is slightly worse than on the prior CT of the chest. In the ED course the patient was given Percocet for pain. I discussed the case with Dr. Rose who agrees with management and she recommends a follow-up with Dr. Funk. Patient will be discharged home with follow-up with Dr. Funk. Before the patient was discharged there was an episode of arrhythmia likely V. tach. This was a short episode, and the patient was asymptomatic. At this point I offered the patient admission to rule out any type of arrhythmia however the patient refuse. I extensively discussed with the patient the benefits and risk of leaving AMA. I also discussed the alternatives to leaving AMA, however, the patient still insist to leave the hospital AMA.. The primary nurse and the charge nurse also strongly recommended that the patient should not leave AMA. Patient understands the risk of leaving AMA, which includes but is not restricted to . Patient is Alert and oriented times three and patient verbalizes understanding. Patient has full capacity and is cognitively intact. Patient signed the AMA form. Patient was also advised to return to ED if he changes his mind or if the symptoms worsen or other symptoms appear. Patient understands and agrees. - Diagnoses Differential Diagnosis/HQI/PQRI: Positive: Asthma, Bronchitis, CHF, COPD Exacerbation, Pneumonia, Pulmonary Embolism Provider Diagnoses: Dyspnea, Lung metastases - Physician Notifications Discussed Care of Patient With: Annabelle Rose Time Discussed With Above Provider: 16:26 Instructed by Provider To: Other - Consult with Dr. Rose (oncology) at 1626. She recommends the patient not recieve a chest CT at this time, and should instead have a CXR. Discharge - Sign-Out/Discharge Documenting (check all that apply): Patient Departure - Left AMA - Discharge Plan Condition: Stable Disposition: AGAINST MEDICAL ADVICE Prescriptions: HYDROcodone/ACETAMIN 5-325 MG* [[place] 5-325 TAB*] 1 tab PO Q6H PRN #10 tab MDD 4 PRN Reason: Pain Patient Education Materials: Shortness of Breath (ED) Referrals: [facility] [place] PHYSICIAN REFERRAL [Outside] Additional Instructions: RETURN TO THE EMERGENCY DEPARTMENT FOR NEW OR WORSENING SYMPTOMS Attestations Scribe Attestation: This is angela Shankar documenting for attending Gato Vuong MD. User Type: Provider with Scribe Provider Attestation: The documentation recorded by the scribe accurately reflects the service I personally performed and the decisions made by me.
[2017-09-24 15:43] LABS: ABS Basophils 0 10^3/ul (0-0.2); ABS Eosinophils 0.1 10^3/ul (0-0.6); ABS Lymphocytes 1.3 10^3/ul (1.0-4.8); ABS Monocytes 0.3 10^3/ul (0-0.8); ABS Nucleated RBC 0 10^3/ul; Eosinophil % 2.3 % (0-6); Hematocrit 37 % (35-47); Hemoglobin 12.2 g/dl (12.0-16.0); Lymphocyte % 26.6 % (25-47); Mean Corpuscular HGB Conc 33 g/dl (31-36); Mean Corpuscular Hemoglobin 29 pg (27-31); Mean Corpuscular Volume 89 fL (80-97); Mean Platelet Volume 7.3 um3 (7.4-10.4); Nucleated Red Blood Cells % 0.1; Platelet Count 209 10^3/ul (150-450); Red Blood Count 4.14 10^6/ul (4.00-5.40); Red Cell Distribution Width 14 % (10.5-15); White Blood Count 4.7 10^3/ul (3.5-10.8)
[2017-09-24 16:04] LABS: INR 0.96 (0.77-1.02)
[2017-09-24] MEDS ORDERED: Iodixanol* (CONTRAST) 320 MG/ML 100 ML SDV IV ONE (16:08)
[2017-09-24] MEDS ORDERED: oxyCODONE/Acetamin 5/325 MG* TAB PO ONE ×2 (16:33→17:27)
--- NOTE | 2017-09-24 16:56 | RAD ---
INDICATION: Shortness of breath. COMPARISON: Comparison is made with a prior chest x-ray study from May 06, [address] of the chest from August 02, 2017. TECHNIQUE: Dual-energy PA and lateral views of the chest were obtained. FINDINGS: There is a central venous catheter present entering on the left side which demonstrates normal course. The heart is within normal limits in size. There are numerous bilateral pulmonary nodules which have progressed from the prior x-ray study and appear similar to slightly worse than on the prior CT of the chest study. IMPRESSION: MULTIPLE BILATERAL PULMONARY NODULES MOST CONSISTENT WITH METASTATIC DISEASE DEMONSTRATING PROGRESSION FROM THE PRIOR CHEST X-RAY STUDY. THESE APPEAR GROSSLY SIMILAR TO SLIGHTLY WORSE THAN ON THE PRIOR CT OF THE CHEST.
[2017-09-24 18:12] VITALS: BP 129/75
== END 2017-09-24 18:09 | disposition left against medical advice (07) ==
LOC: ED 12:28
DX: R06.00 Dyspnea, unspecified (principal); C54.1 Malignant neoplasm of endometrium; C78.02 Secondary malignant neoplasm of left lung; C78.01 Secondary malignant neoplasm of right lung; R05 Cough; R07.89 Other chest pain; R00.1 Bradycardia, unspecified; Z88.8 Allergy status to other drugs, medicaments and biological substances; Z91.030 Bee allergy status
CPT/HCPCS: 36415; 71046; 80053; 82550; 82553; 83605; 83880; 84484; 85025; 85379; 85610; 85730; 86140; 93005; 99282; A9270-GY

== ENCOUNTER 2017-10-12 09:36 | Emergency (ER) | payer SELFPAY ==
--- NOTE | 2017-10-12 10:20 | ED ---
Complex/Multi-Sys Presentation - HPI Summary HPI Summary: This patient is a 57 year old F presenting to [facility] complaining of weakness, difficultly walking, increased lethargy, and decreased PO intake for the past two days. Reports diffuse burning abdominal pain, nausea, and intermittent chest pain. Pain is rated 8/10 upon triage. 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 Last chemotherapy treatment on 10/06/17. She reports recent workup last week that included an A/P CT scan and bloodwork, revealing a low magnesium. Dr. Funk is patient's oncologist. - History Of Current Complaint Chief Complaint: EDDizziness Time Seen by Provider: 10/12/17 10:12 Hx Obtained From: Patient Onset/Duration: Lasting Days Timing: Constant Location: Pain At: - abdomen chest Character: Unable To Describe - diffuse burning Alleviating Factor(s): nothing Associated Signs And Symptoms: Positive: Dizziness, Weakness, Chest Pain, Nausea , Abdominal Pain, Decreased Oral Intake Related History: Recent Illness - Allergies/Home Medications Allergies/Adverse Reactions: Allergies Allergy/AdvReac Type Severity Reaction Status Date / Time bee pollen Allergy Hives Verified 10/12/17 10:09 monosodium glutamate Allergy Headache Verified 10/12/17 10:09 PMH/Surg Hx/FS Hx/Imm Hx Endocrine/Hematology History: Reports: Hx Diabetes Cardiovascular History: Denies: Hx Hypertension, Hx Pacemaker/ICD History: Reports: Hx Renal Disease - RT DISTAL URETERAL STRICTURE., Other Problems/Disorders - Uterine Cancer Musculoskeletal History: Reports: Hx Arthritis - RT HAND Sensory History: Reports: Hx Contacts or Glasses - CONTACTS, WILL WEAR GLASSES DAY OF SURGERY Denies: Hx Hearing Aid Opthamlomology History: Reports: Hx Contacts or Glasses - CONTACTS, WILL WEAR GLASSES DAY OF SURGERY Neurological History: Reports: Other Neuro Impairments/Disorders - concussions x2 Psychiatric History: Reports: Hx Depression Denies: Hx Eating Disorder, Hx Panic Disorder, Hx of Violent Episodes Against Others - Cancer History Cancer Type, Location and Year: UTERINE, 2014. LUNG, 2018 Hx Chemotherapy: Yes Hx Radiation Therapy: Yes - Surgical History Surgery Procedure, Year, and Place: APPENDECTOMY,. ORAL SURGERY,. SINUS SURGERY,. CARPAL TUNNEL RELEASE,. HYSTERECTOMY Hx Anesthesia Reactions: No - Immunization History Immunizations Up to Date: Yes Infectious Disease History: No Infectious Disease History: Denies: Traveled Outside the [place] in Last 30 Days - Family History Known Family History: Negative: Cardiac Disease, Hypertension, Diabetes - Social History Alcohol Use: None Alcohol Amount: since CA dx Hx Substance Use: No Substance Use Type: Reports: None Hx Tobacco Use: No Smoking Status (MU): Never Smoked Tobacco Have You Smoked in the Last Year: No Review of Systems Positive: Fatigue, Other - decreased PO intake Positive: Chest Pain Positive: Abdominal Pain, Nausea Positive: Weakness - generalized All Other Systems Reviewed And Are Negative: Yes Physical Exam - Summary Physical Exam Summary: Appearance: Well appearing, no pain distress Skin: warm, dry, reflects adequate perfusion, dry mucous membranes Head/face: normal Eyes: EOMI, UMER ENT: normal Neck: supple, non-tender Respiratory: CTA, breath sounds present Cardiovascular: RRR, pulses symmetrical Abdomen: difuse abdominal tenderness, soft Bowel: present Musculoskeletal: normal, strength/ROM intact Neuro: normal, sensory motor intact, A&Ox3 Triage Information Reviewed: Yes Vital Signs On Initial Exam: Initial Vitals Temp Pulse Resp BP Pulse Ox 98.2 F 84 22 134/74 98 10/12/17 10:05 10/12/17 10:05 10/12/17 10:05 10/12/17 10:05 10/12/17 10:05 Vital Signs Reviewed: Yes Diagnostics - Vital Signs Vital Signs Temp Pulse Resp BP Pulse Ox 10/12/17 10:05 98.2 F 84 22 134/74 98 - Laboratory Result Diagrams: 10/12/17 10:56 10/12/17 10:56 Lab Statement: Any lab studies that have been ordered have been reviewed, and results considered in the medical decision making process. - Radiology Abdomen XR Radiology Interpretation Completed By: Radiologist - 1. Innumerable pulmonary nodules not changed since the eighth 1118 chest x-ray consistent with the patient's reported history of metastatic endometrial cancer. 2. No radiographically apparent acute abnormalities of the abdomen. ED Physician has reviewed this report. CXR Radiology Interpretation Completed By: Radiologist - 1. Innumerable pulmonary nodules not changed since the eighth 1118 chest x-ray consistent with the patient's reported history of metastatic endometrial cancer. 2. No radiographically apparent acute abnormalities of the abdomen. ED Physician has reviewed this report. - EKG 1035 Cardiac Rate: NL - 86 BPM EKG Rhythm: Sinus Rhythm EKG Interpretation: no acute changes Re-Evaluation - Re-Evaluation First Re-Evaluation Time: 12:25 Change: Unchanged - Patient's symptoms are still present. Complex Multi-Symp Course/Dx Course Of Treatment: 57 year old F presenting to [facility] complaining of dizziness , increased lethargy, and decreased PO intake for the past two days. Reports diffuse burning abdominal pain, nausea, and intermittent chest pain. Pain is rated 8/10 upon triage. 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 She reports recent workup last week that included an A/P CT scan and bloodwork, revealing a low magnesium. An Abdomnial XR and CXR reveals, ". Innumerable pulmonary nodules not changed since the eighth 1118 chest x-ray consistent with the patient's reported history of metastatic endometrial cancer. 2. No radiographically apparent acute abnormalities of the abdomen." Bloodwork is obtained without significnat abnormalities. Dr. Rose, oncology, her PA came to er and evaluated and recommended dc. Patient is given 2L IVF, compazine, Zofran, Viscous Lidocaine, Decadron, and Maalox. Patient is able to ambulate well. Patient is feeling better while in the ED. Patient will be discharged patient is agreeable with this plan. - Diagnoses Differential Diagnoses/HQI/PQRI: Metabolic Abnormality, Other - dehydration/ endometrial cqncer with mets Provider Diagnoses: Dizziness, Weakness, Endometrial cancer - Physician Notifications Discussed Care Of Patient With: Annabelle Rose - oncology Instructed by Provider To: Other - does not recommend admission. Discharge - Sign-Out/Discharge Documenting (check all that apply): Patient Departure - discharge - Discharge Plan Condition: Stable Disposition: HOME Prescriptions: Omeprazole 20 mg PO BID #60 cap Prochlorperazine TAB* [Compazine Tab*] 10 mg PO Q6H PRN #60 tab PRN Reason: Nausea Patient Education Materials: Endometrial Cancer (DC), Weakness (ED), Dizziness (ED) Referrals: Landon Funk MD [Primary Care Provider] - 10/14/17 1:10 pm (SIRENA Laguna) Additional Instructions: RETURN TO THE EMERGENCY DEPARTMENT FOR CHANGING OR WORSENING SYMPTOMS. - Billing Disposition and Condition Condition: STABLE Disposition: Home - Attestation Statements Document Initiated by Scribe: Yes Documenting Scribe: Marika Peacock Provider For Whom Scribe is Documenting (Include Credential): Shaka Jeffery MD Scribe Attestation: I, Marika Peacock, scribed for Shaka Jeffery MD on 10/12/17 at 1423. Scribe Documentation Reviewed: Yes Provider Attestation: The documentation as recorded by the [email or web address] accurately reflects the service I personally performed and the decisions made by me, Shaka Jeffery MD
[2017-10-12] MEDS ORDERED: NS 0.9% 1000 ML* 1,000 ML IV ONE ×2 (10:25→10:59)
--- OUTSIDE RECORDS SUMMARY | 2017-10-12 10:58 | XMS REPORT ---
:1960 External Reference #:[id number] Author Organization [facility] Address [address] [address] Phone [phone] Care Team Providers Name Role Phone Landon Funk MD Primary Care Physician Unavailable Payers Type Date Identification Numbers Payment Provider Subscriber Commercial Policy Number: [id number] BS Facets Coni Dawson PayID: [id number] [place] [address] Workers Compensation Onset: 2008 Policy Number: Alberto Dawson [id number] Ins PayID: [id number] [address] [place] [address] Medigap Part B Expires: 2017 Policy Number: [id number] BS Facets Jabari Lorenzo PayID: [id number] [place] [address] Workers Onset: 2013 Policy Number: Juarez Dawson Compensation [id number] [place] Group Name: [phone] [address] [address] PayID: OCTAVIO Mccarthy [id number] Workers Compensation Policy Number: [id number] Controverted Coni Dawson PayID: [id number] Problems Description No Information Family History Date Family Member(s) Problem(s) Comments General Heart Disease General Diabetes General Cancer Father due to Prostate Cancer () Mother due to () Mother Heart Disease Mother Valve replacement Mother Heart Disease rheumatic fever Siblings 2 First Sister Breast Cancer First Sister Thyroid Cancer First Sister 1 sister 1 sister-diabetic 1- sister cancer Social History Type Date Description Comments Marital Status Single Lives With Alone Occupation culinary chef ETOH Use Occasionally consumes alcohol Smoking Patient has never smoked Recreational Drug Use Denies Drug Use Daily Caffeine Consumes on average 1 cup of hot tea per day Daily Caffeine Consumes on average 1 cup of hot tea per occ green tea day Exercise Type/Frequency Exercises sporadically Allergies, Adverse Reactions, Alerts Date Description Reaction Status Severity Comments 07/16/2015 Bee Sting active 09/29/2017 MS Contin active Medications Medication Date Status Form Strength Qnty SIG Indications Ordering Provider Metformin HCL Active Tablets 1000mg 1 by Unknown 000 mouth twice a day Glucosamine Active Capsules 500mg 1 cap by Unknown Sulfate 000 mouth every day Multi Complete Active Capsules daily Unknown 000 Percocet Active Tablets 5-325mg 1 tab Unknown 000 every 6 hours prn pain Morphine Hx Tablets ER 15mg 1 by Unknown Sulfate ER 000 - mouth twice a 018 day Medications Administered in Office Medication Date Status Form Strength Qnty SIG Indications Ordering Provider Celestone 3 mg Administered Injection Jackie and 3mg 011 Pernell shaw M.D. Vital Signs Date Vital Result Comment 09/29/2017 Height 68 inches 5'8" Weight 149.12 lb W/ Shoes Heart Rate 94 /min BP Systolic Sitting 120 [address] Rue Reg Cuff BP Diastolic Sitting 74 mmHg Rue Reg Cuff BMI (Body Mass Index) 22.7 kg/m2 Ejection Fraction 55-60% ECHO 09/29/17 07/16/2015 Height 68 inches 5'8" Weight 158.00 lb Heart Rate 85 /min BP Systolic 143 mmHg BP Diastolic 83 mmHg BMI (Body Mass Index) 24.0 kg/m2 Results Test Date Test Result H/L Range Note Order 09/29/2017 Stress Test, Pharmacologic Nuclear <pending> (Lexiscan) Procedures Date CPT Code Description Status 09/29/2017 10265 ECHO Transthoracic, Real-Time 2D With Doppler And Color Completed Flow 07/06/2017 26236 ECHO Transthorasic Realtime 2D W Doppler & Color Flow Completed Hosp 03/04/2010 62229 Rad Exam; Wrist Limited, 2 Views Completed 03/04/2010 90328 Rad Exam; Wrist Limited, 2 Views Completed 03/04/2010 11550 Inject Tendon Sheath Or Ligament Aponeurosis Eg Plantar Completed Fascia Encounters Type Date Location Provider CPT E/M Dx Office Visit 07/16/2015 [facility] Dash David M.D. 34935 S46.011A 8:00a [facility] [place] Office Visit 05/01/2010 [facility] Jackie 05117 727.04 9:00a [place] Ace M.D. 716.94 Office Visit 03/04/2010 3:00p [facility] Jackie Ace 15185 727.04 [place] 716.94 Plan of Care Future Appointment(s):10/19/2017 1:30 pm - Nurse Visit cc at [facility]10/18/2017 3:00 pm - Nurse Visit cc at [facility]10/12/2017 9 :30 am - Lisha Pérez M.D. at [facility]09/29/2017 - Lisha Pérez M.D.I47.2 Ventricular tachycardiaNew Orders:Holter MonitorFollow up:4-7 weeks to discuss xwtpzQ26.02 Shortness of osqnfiA58.9 Chest pain, unspecified
[2017-10-12 11:16] LABS: ABS Basophils 0 10^3/ul (0-0.2); ABS Eosinophils 0 10^3/ul (0-0.6); ABS Lymphocytes 0.5 10^3/ul (1.0-4.8); ABS Monocytes 0 10^3/ul (0-0.8); ABS Neutrophils 1.1 10^3/ul (1.5-7.7); ABS Nucleated RBC 0 10^3/ul; Eosinophil % 0.8 % (0-6); Hematocrit 36 % (35-47); Hemoglobin 12.2 g/dl (12.0-16.0); Lymphocyte % 29.6 % (25-47); Mean Corpuscular HGB Conc 34 g/dl (31-36); Mean Corpuscular Hemoglobin 30 pg (27-31); Mean Corpuscular Volume 88 fL (80-97); Mean Platelet Volume 7.7 um3 (7.4-10.4); Nucleated Red Blood Cells % 0.3; Platelet Count 134 10^3/ul (150-450); Red Blood Count 4.08 10^6/ul (4.00-5.40); Red Cell Distribution Width 13 % (10.5-15); White Blood Count 1.7 10^3/ul (3.5-10.8)
[2017-10-12 11:29] LABS: EGFR Non-African American 109.3 (>60)
[2017-10-12 11:30] LABS: INR 1.01 (0.77-1.02)
--- NOTE | 2017-10-12 11:32 | RAD ---
INDICATION: Dizziness and abdominal pain x2 days COMPARISON: Most recent comparison chest x-rays dated September 24, 2017 TECHNIQUE: Single AP portable view of the chest and 2 views of the abdomen were obtained. FINDINGS: Image quality is compromised due to the relative inferiority of a portable chest x-ray. Chest: Again seen is a left internal jugular vein dual lumen Mediport with the tip terminating at the mid-level SVC. The heart and mediastinum exhibit normal size and contour. Similar to the prior chest x-ray there are innumerable nodules throughout the bilateral lungs. Visualized bones are normal for the patient's age. ABDOMEN: Postsurgical changes include surgical clips overlying the left of midline mid-level abdomen. Gas and stool-filled loops of bowel are not pathologically distended. There is no evidence of free intraperitoneal air. IMPRESSION: 1. Innumerable pulmonary nodules not changed since the eighth 1118 chest x-ray consistent with the patient's reported history of metastatic endometrial cancer. 2. No radiographically apparent acute abnormalities of the abdomen.
[2017-10-12] MEDS ORDERED: Ondansetron INJ* 2 MG/ML VIAL ONE (11:39)
[2017-10-12] MEDS ORDERED: Ondansetron INJ* 2 MG/ML VIAL IV ONE (11:41)
[2017-10-12] MEDS ORDERED: Dexamethasone IV* 4 MG/ML 1 ML (4 MG) IV SLOW PU ONE (12:56)
[2017-10-12] MEDS ORDERED: Lidocaine 2% VISCOUS* 15 ML UDC PO ONE (12:57)
[2017-10-12] MEDS ORDERED: Al Hydrox/Mg Hydrox/Simet LIQ* 30 ML UDC PO ONE (12:57)
[2017-10-12] MEDS ORDERED: PROCHLORPERAZINE INJ 5 MG/ML 2 ML VIAL IV ONE (13:00)
[2017-10-12 14:16] VITALS: BP 111/61
--- NOTE | 2017-10-12 19:21 | CONS ---
CC: Dr. Gaye Rizzo; Dr. Funk * EMERGENCY DEPARTMENT CONSULTATION: DATE OF CONSULT: 10/12/17. PRIMARY CARE PROVIDER: Dr. Gaye Rizzo. PRIMARY ONCOLOGIST: Dr. Elvis Funk. REQUESTING PROVIDER: Dr. Jeffery. CONSULTING PROVIDER: DORI Tovar CHIEF COMPLAINT: Weakness. HISTORY OF PRESENT ILLNESS: This is a 57-year-old female with a history of metastatic endometrial cancer, who recently resumed chemotherapy and received cycle 1 of carboplatin and docetaxel, 10/06/17. She states that she was feeling relatively okay for 1 to 2 days following treatment, but she has had progressive weakness. The patient reports that her oral intake has been quite poor with some associated nausea. She lives alone and reports that she has been too weak to prepare herself any meals. She has not had any vomiting, some occasional loose stool and she describes a burning sensation in her abdomen. She has been afebrile. No associated chills. No pain in her abdomen apart from the burning. No complaints of cough or shortness of breath. She drove herself to the emergency department today due to progressive symptoms and emergency department provider, Dr. Jeffery, requested evaluation by Oncology team. PAST MEDICAL HISTORY: 1. Gue-tdsqzop-chqnwgfku diabetes. 2. Metastatic endometrial cancer. PAST SURGICAL HISTORY: 1. Appendectomy. 2. Carpal tunnel. 3. Hysterectomy. 4. Oral surgery. 5. Sinus surgery. MEDICATIONS: Home medications: 1. Glucosamine 500 mg p.o. daily. 2. Vicodin 5/325 one tablet p.o. 4 times daily as needed for pain. 3. Metformin 1000 mg p.o. twice daily. 4. Multivitamin 1 tablet p.o. daily. SOCIAL HISTORY: The patient currently lives alone. No history of smoking, occasional alcohol consumption. No history of illicit drugs. PHYSICAL EXAM: Temperature 98.9 degrees Fahrenheit, pulse 82 beats per minute, respiratory rate 18, oxygen saturation 99% on room air, blood pressure 111/61 mmHg. General: This is a 57-year-old female, who appears quite fatigued, but is in no acute distress. HEENT: Head is normocephalic, atraumatic. Mucous membranes are mildly dry. Neck: Neck is supple and free of lymphadenopathy. Cardiovascular: Heart has a regular rate and rhythm without murmurs, rubs, or gallops. Respiratory: Lungs are clear to auscultation without wheezes, crackles , or rhonchi. Abdomen: Abdomen is soft with some mild epigastric discomfort to palpation. Extremities: No edema noted. DIAGNOSTIC STUDIES/LAB DATA: Total white blood cell count of 1700 with an absolute neutrophil count of 1100, hemoglobin of 12.2 g/dL, and a platelet count of 134,000. Normal INR and PTT at 1.01 and 27.1 respectively. Comprehensive metabolic panel shows a sodium of 133 mmol/L, potassium of 3.6, serum bicarb of 29, BUN 12, creatinine 0.57. Random glucose of 252. Transaminases and total bilirubin are within normal limits. Hospital imaging: Chest x-ray shows a numerable pulmonary nodules unchanged from prior study. Abdomen x-ray shows no acute findings. ASSESSMENT AND PLAN: This is a 57-year-old female, who recently resumed chemotherapy for metastatic endometrial cancer, who presents with profound weakness on day 6 of her cycle. Neutrophil count is greater than 1000. She is afebrile. Remainder of her electrolytes are largely unremarkable. The majority of her symptoms are likely chemotherapy related. 1. Fatigue - the patient received 2 liters of normal saline in the emergency department. I think she would benefit from additional nausea control and I recommended IV dexamethasone and Compazine. 2. Gastritis - The burning sensation in her abdomen that she describes sounds to be consistent with gastritis. We used a GI cocktail in the emergency department today and prescribed omeprazole at 20 mg p.o. twice daily. 3. Metastatic endometrial carcinoma - the patient recently resumed chemotherapy with CarboTaxol with day 1 of this cycle being 10/06/17. DISPOSITION: The patient does not require hospitalization. Recommend hydration and additional supportive medications as listed above. Prescriptions sent for omeprazole and Compazine to her local pharmacy and followup arranged in the Oncology Clinic for 10/14/17. The patient received instructions to please followup with Oncology Clinic with any additional concerns that may arise. DORI TOVAR [id number]/[facility] #: [id number] [facility] STATE HOSPITALDeandra
== END 2017-10-12 14:15 | disposition home or self-care (01) ==
LOC: ED 09:36
DX: R42 Dizziness and giddiness (principal); R53.1 Weakness; R07.89 Other chest pain; C54.1 Malignant neoplasm of endometrium; C78.00 Secondary malignant neoplasm of unspecified lung
CPT/HCPCS: 36415; 71045; 74018; 80053; 83605; 83735; 84484; 85025; 85610; 85730; 93005; 96361; 96374; 96375; 99215; 99283; A9270-GY; J0780; J1100; J2405

== ENCOUNTER 2017-10-18 16:03 | Emergency (ER) | payer MEDICARE ==
[2017-10-18 16:48] VITALS: BP 98/55
--- NOTE | 2017-10-18 17:28 | UC ---
Skin Complaint HPI - HPI Summary HPI Summary: Patient with history of diabetes and endometrial cancer receiving chemotherapy complains of skin ulcerations at sites of dog bite and mosquito bites. Dog belongs to sister, vaccinations up-to-date. Dog bite was 3 days ago, patient was not evaluated and has not received treatment. Denies fever, cough, sore throat, CP, SOB, N/V/D, abdominal pain, change in urine, change in BM, loss of sensation or function in extremities. Dog bite wounds with subsequent Ulcerations appear on left hand and forearm, right hand and forearm. Mosquito bites with subsequent ulcerations on bilateral ankles. Patient admits to scratching them. Mild pain from ulcerations, denies purulent discharge. Last chemotherapy treatment 2 ago. - History of Current Complaint Chief Complaint: UCSkin Time Seen by Provider: 10/18/17 16:58 Stated Complaint: RASHES NOT HEALING Hx Obtained From: Patient, Family/Bank Clerk Hx Last Menstrual Period: post menopause Onset/Duration: Gradual Onset Skin Exposure Onset/Duration: Days Ago Timing: Constant Onset Severity: Mild Current Severity: Mild Pain Intensity: 2 Pain Scale Used: 0-10 Numeric Location: Discrete Character: Redness Aggravating Factor(s): Nothing Alleviating Factor(s): Nothing - Allergy/Home Medications Allergies/Adverse Reactions: Allergies Allergy/AdvReac Type Severity Reaction Status Date / Time bee pollen Allergy Hives Verified 10/12/17 10:09 monosodium glutamate Allergy Headache Verified 10/12/17 10:09 Home Medications: Home Medications Acetaminophen [Tylenol] 10/18/17 [History] Loperamide CAP* [Imodium CAP*] 10/18/17 [History] Review of Systems Constitutional: Negative Skin: Rash Eyes: Negative ENT: Negative Respiratory: Negative Cardiovascular: Negative Gastrointestinal: Negative Genitourinary: Negative Motor: Negative Neurovascular: Negative Musculoskeletal: Negative Neurological: Negative Psychological: Negative Is Patient Immunocompromised?: Yes All Other Systems Reviewed And Are Negative: Yes PMH/Surg Hx/FS Hx/Imm Hx Endocrine History: Diabetes Cancer History: Other - Endometrial Other Cancer History: lung - Surgical History Surgical History: Yes Surgery Procedure, Year, and Place: APPENDECTOMY,. ORAL SURGERY,. SINUS SURGERY,. CARPAL TUNNEL RELEASE,. HYSTERECTOMY. cyst removal 2016 - Family History Known Family History: Negative: Cardiac Disease, Hypertension, Diabetes - Social History Alcohol Use: None Alcohol Amount: since CA dx Substance Use Type: None Smoking Status (MU): Never Smoked Tobacco Have You Smoked in the Last Year: No Household Exposure Type: Cigarettes - Immunization History Most Recent Influenza Vaccination: declined Most Recent Tetanus Shot: current Most Recent Pneumonia Vaccination: declined Physical Exam - Summary Physical Exam Summary: Erythema localized to ulcerations at site of dog bite wounds and mosquito bites. No generalized swelling, lymphangitis, extra warmth, purulent discharge noted to bilateral forearms, bilateral hands, bilateral ankles. Amputation able to fully flex and extend fingers of bilateral hands. Triage Information Reviewed: Yes Appearance: Well-Appearing Vital Signs: Initial Vital Signs Temp 97.1 F 10/18/17 16:41 Pulse 84 10/18/17 16:41 Resp 16 10/18/17 16:41 BP 98/55 10/18/17 16:41 Pulse Ox 100 10/18/17 16:41 Vital Signs Reviewed: Yes Eye Exam: Normal Neck exam: Normal Respiratory Exam: Normal Cardiovascular Exam: Normal Abdominal Exam: Normal Musculoskeletal Exam: Normal Neurological Exam: Normal Psychological Exam: Normal Skin: Positive: rashes Course/Dx - Course Course Of Treatment: Patient with history of diabetes and endometrial cancer receiving chemotherapy complains of skin ulcerations at sites of dog bite and mosquito bites. Dog bite was 3 days ago, patient was not evaluated and has not received treatment. Denies fever, cough, sore throat, CP, SOB, N/V/D, abdominal pain, change in urine, change in BM, loss of sensation or function in extremities. Dog bite wounds with subsequent Ulcerations appear on left hand and forearm, right hand and forearm. Mosquito bites with subsequent ulcerations on bilateral ankles. Patient admits to scratching them. Mild pain from ulcerations, denies purulent discharge. Last chemotherapy treatment 2 ago. Physical exam:Erythema localized to ulcerations at site of dog bite wounds and mosquito bites. No generalized swelling, lymphangitis, extra warmth, purulent discharge noted to bilateral forearms, bilateral hands, bilateral ankles. Amputation able to fully flex and extend fingers of bilateral hands. Vital signs within normal limits. No decrease in physical function or sensation. Tetanus shot. Rx for Augmentin. Follow-up in 48 hours for dog bite wounds. Follow up with oncology tomorrow. - Diagnoses Provider Diagnoses: Dog bite. Skin ulcerations. Fatigue Discharge - Sign-Out/Discharge Documenting (check all that apply): Patient Departure All imaging exams completed and their final reports reviewed: No Studies - Discharge Plan Condition: Stable Disposition: HOME Prescriptions: Amoxicillin/Clavulanate TAB* [Augmentin TAB 875*] 875 mg PO BID #20 tab Patient Education Materials: Animal Bite (ED), Acute Wound Care (ED), Diabetes and Your Skin (ED) Referrals: Landon Funk MD [Primary Care Provider] - Additional Instructions: Take antibiotics as directed. Return for evaluation in 24-48 hours, or go to the ED directly for any concerning symptoms including fever, nausea vomiting, purulent discharge from wounds. Follow up with oncology tomorrow. - Billing Disposition and Condition Condition: STABLE Disposition: Home - Attestation Statements Provider Attestation: I was available for consult. This patient was seen by the GARRETT. The patient was not presented to, seen by, or examined by me. -Rossy
[2017-10-18] MEDS ORDERED: Tetanus-Diptheria Toxoids* 0.5 ML SYRINGE IM ONE (17:34)
[2017-10-18] MEDS ORDERED: Tetan/Diph/Pertus SYR(Tdap)* 0.5 ML SYR(BOOSTRIX) use SYR IM ONE (17:36)
[2017-10-19 11:33] LABS: Hematocrit 32 % (35-47); Hemoglobin 10.7 g/dl (12.0-16.0); Mean Corpuscular HGB Conc 34 g/dl (31-36); Mean Corpuscular Hemoglobin 30 pg (27-31); Mean Corpuscular Volume 88 fL (80-97); Mean Platelet Volume 8.5 um3 (7.4-10.4); Platelet Count 176 10^3/ul (150-450); Red Cell Distribution Width 13 % (10.5-15); White Blood Count 3.8 10^3/ul (3.5-10.8)
[2017-10-19 12:05] LABS: EGFR Non-African American 133.3 (>60)
[2017-10-19 12:27] LABS: ABS Basophils 0 10^3/ul (0-0.2); ABS Eosinophils 0 10^3/ul (0-0.6); ABS Lymphocytes 0.8 10^3/ul (1.0-4.8); ABS Monocytes 0.4 10^3/ul (0-0.8); ABS Neutrophils 2.6 10^3/ul (1.5-7.7); ABS Nucleated RBC 0 10^3/ul; Eosinophil % 0.2 % (0-6); Lymphocyte % 22.2 % (25-47); Nucleated Red Blood Cells % 0.3
--- NOTE | 2017-10-19 15:17 | PN ---
Progress Note - Progress Note Date of Service: 10/19/17 Note: Patient's lab results show white blood cell count 3.8 with no left shift. Electrolytes only think about normal is magnesium but is not significant enough to need to treat at this time. no change needed at this time.
== END 2017-10-18 18:08 | disposition home or self-care (01) ==
LOC: UCEAST 16:03
DX: L98.499 Non-pressure chronic ulcer of skin of other sites with unspecified severity (principal); R53.83 Other fatigue; C54.1 Malignant neoplasm of endometrium; C78.00 Secondary malignant neoplasm of unspecified lung; Z91.030 Bee allergy status
CPT/HCPCS: 36415; 80048; 83735; 85025; 90471; 90715; 99212; G0463

== ENCOUNTER → 2018-01-14 09:37 | Emergency (ER) | payer SELFPAY ==
[~2018-01-14 09:37] MED LIST: Aspirin 81 mg CHEW TAB* 81 MG TAB.CHEW PO ONE; Iodixanol* (CONTRAST) 320 MG/ML 100 ML SDV IV ONE; Magnesium Sulfate 1 GM IV* 1 GM/100 ML BAG IV ONE; Morphine VIAL* 4 MG/ML VIAL (1 ml vial) IV ONE; Nitroglycerin TAB 0.4 MG* 0.4 MG TAB SL ONE; Ondansetron ODT TAB* 4 MG PO ONE; Potassium Chlor TAB* 20 MEQ TAB.ER PO ONE
[2018-01-14 10:34] LABS: ABS Basophils 0 10^3/ul (0-0.2); ABS Eosinophils 0 10^3/ul (0-0.6); ABS Lymphocytes 0.9 10^3/ul (1.0-4.8); ABS Monocytes 0.3 10^3/ul (0-0.8); ABS Neutrophils 3.2 10^3/ul (1.5-7.7); ABS Nucleated RBC 0 10^3/ul; Eosinophil % 0.2 %; Hematocrit 34 % (35-47); Hemoglobin 11.6 g/dl (12.0-16.0); Lymphocyte % 19.2 %; Mean Corpuscular HGB Conc 34 g/dl (31-36); Mean Corpuscular Hemoglobin 32 pg (27-31); Mean Corpuscular Volume 94 fL (80-97); Mean Platelet Volume 7.9 fL (7.4-10.4); Nucleated Red Blood Cells % 0; Platelet Count 154 10^3/ul (150-450); Red Blood Count 3.65 10^6/ul (4.00-5.40); Red Cell Distribution Width 14 % (10.5-15); White Blood Count 4.4 10^3/ul (3.5-10.8)
--- NOTE | 2018-01-14 10:40 | ED ---
HPI Chest Pain - HPI Summary HPI Summary: Patient is a 57 y/o F w/ c/o chest pain, SOB, N/V onsetting this morning. Chest pain is reported to have onset at 0100 this morning. Pain is described as constant and sharp/stabbing. Chest pain is at left side, she notes radiation of pain to back. She denies exacerbation of pain with movement or deep breaths. SOB is reported to have onset alongside chest pain. Patient reports she experienced nausea and one episode of vomiting after chest pain onset. Abdominal pain is denied. She reports diarrhea as well but notes this is due to the 800 mg magnesium BID she is taking. PMHx of uterine cancer with metastasis, last chemotherapy was reported to be 12/31. She states she did not take any pain medication today. On triage, pain is rated 9/10, nothing is noted to aggravate/alleviate Sx. Home medications and allergies are reviewed. - History of Current Complaint Chief Complaint: EDChestPainROMI Time Seen by Provider: 01/14/18 09:52 Hx Obtained From: Patient Hx Last Menstrual Period: post menopause Onset/Duration: Started Hours Ago - onset 0100, Still Present Timing: Constant, Lasting Hours - 0100 onset Current Severity: Severe - 9/10 Pain Intensity: 9 Pain Scale Used: 0-10 Numeric - 9/10 Chest Pain Location: Left Anterior Chest Pain Radiates: Yes Chest Pain Radiates To:: Back Character: Sharp/Stabbing Aggravating Factor(s): Nothing Alleviating Factor(s): Nothing Associated Signs and Symptoms: Positive: Chest Pain, Shortness of Breath, Nausea , Back Pain, Vomiting, Other: - POSITIVE - DIARRHEA. Negative: Abdominal Pain - Additional Pertinent History Primary Care Physician: [id number] - Allergy/Home Medications Allergies/Adverse Reactions: Allergies Allergy/AdvReac Type Severity Reaction Status Date / Time bee pollen Allergy Hives Verified 11/24/17 07:26 monosodium glutamate Allergy Headache Verified 11/24/17 07:26 PMH/Surg Hx/FS Hx/Imm Hx Endocrine/Hematology History: Reports: Hx Diabetes Cardiovascular History: Denies: Hx Hypertension, Hx Pacemaker/ICD History: Reports: Hx Renal Disease - RT DISTAL URETERAL STRICTURE., Other Problems/Disorders - Uterine Cancer Musculoskeletal History: Reports: Hx Arthritis - RT HAND Sensory History: Reports: Hx Contacts or Glasses - CONTACTS, WILL WEAR GLASSES DAY OF SURGERY Denies: Hx Hearing Aid Opthamlomology History: Reports: Hx Contacts or Glasses - CONTACTS, WILL WEAR GLASSES DAY OF SURGERY Neurological History: Reports: Other Neuro Impairments/Disorders - concussions x2 Psychiatric History: Reports: Hx Depression Denies: Hx Eating Disorder, Hx Panic Disorder, Hx of Violent Episodes Against Others - Cancer History Cancer Type, Location and Year: UTERINE, 2014. LUNG, 2018 Hx Chemotherapy: Yes Hx Radiation Therapy: Yes - Surgical History Surgery Procedure, Year, and Place: APPENDECTOMY,. ORAL SURGERY,. SINUS SURGERY,. CARPAL TUNNEL RELEASE,. HYSTERECTOMY. cyst removal 2017 Hx Anesthesia Reactions: No Infectious Disease History: No Infectious Disease History: Denies: Traveled Outside the [place] in Last 30 Days - Family History Known Family History: Negative: Cardiac Disease, Hypertension, Diabetes - Social History Alcohol Use: None Alcohol Amount: since CA dx Hx Substance Use: No Substance Use Type: Reports: None Hx Tobacco Use: No Smoking Status (MU): Never Smoked Tobacco Have You Smoked in the Last Year: No Review of Systems Positive: Chest Pain Positive: Shortness Of Breath Positive: Vomiting, Diarrhea, Nausea. Negative: Abdominal Pain Positive: Other - POSITIVE - BACK PAIN All Other Systems Reviewed And Are Negative: Yes Physical Exam - Summary Physical Exam Summary: VITAL SIGNS: Reviewed. GENERAL: Patient is a well-developed and nourished female with some distress secondary to pain while lying in the stretcher. Patient is not in any acute respiratory distress. She is pale appearing. HEAD AND FACE: No signs of trauma. No ecchymosis, hematomas or skull depressions. No sinus tenderness. EYES: PERRLA, EOMI x 2, No injected conjunctiva, no nystagmus. EARS: Hearing grossly intact. Ear canals and tympanic membranes are within normal limits. MOUTH: Oropharynx within normal limits. NECK: Supple, trachea is midline, no adenopathy, no JVD, no carotid bruit, no c- spine tenderness, neck with full ROM. CHEST: Symmetric, reproducible chest pain at left side. BACK: Reproducible pain at left upper back. LUNGS: Decreased breath sounds in left lung. No wheezing or crackles. CVS: Regular rate and rhythm, S1 and S2 present, no murmurs or gallops appreciated. ABDOMEN: Soft, non-tender. No signs of distention. No rebound no guarding, and no masses palpated. Bowel sounds are normal. EXTREMITIES: FROM in all major joints, no edema, no cyanosis or clubbing. NEURO: Alert and oriented x 3. No acute neurological deficits. Speech is normal and follows commands. SKIN: Dry and warm Triage Information Reviewed: Yes Vital Signs On Initial Exam: Initial Vitals Temp Pulse Resp BP Pulse Ox 96.8 F 62 19 140/79 100 01/14/18 09:41 01/14/18 09:41 01/14/18 09:41 01/14/18 09:41 01/14/18 09:41 Vital Signs Reviewed: Yes Diagnostics - Vital Signs Vital Signs Temp Pulse Resp BP Pulse Ox 01/14/18 09:41 96.8 F 62 19 140/79 100 - Laboratory Result Diagrams: 01/14/18 10:22 01/14/18 10:22 Lab Statement: Any lab studies that have been ordered have been reviewed, and results considered in the medical decision making process. - Radiology CXR Radiology Interpretation Completed By: Radiologist Summary of Radiographic Findings: CXR IMPRESSION: CLEAR LUNGS, INTERVAL RESOLUTION OF PULMONARY NODULES. THIS REPORT WAS REVIEWED BY ED PHYSICIAN. - CT CTA CHEST/THORAX CT Interpretation Completed By: Radiologist Summary of CT Findings: CTA CHEST/THORAX. IMPRESSION: 1. NO EVIDENCE FOR PULMONARY EMBOLISM. 2. MILD ECTASIA OF THE ASCENDING THORACIC AORTA, UNCHANGED. 2. TWO SMALL LEFT BASILAR GROUNDGLASS NODULES WHICH ARE UNCHANGED FROM THE PRIOR STUDY. THERE HAS BEEN INTERVAL RESOLUTION OF THE OTHER PULMONARY NODULES PREVIOUSLY DESCRIBED. 3. STABLE THYROID NODULES. THIS REPORT WAS REVIEWED BY ED PHYSICIAN. - EKG 1034 Cardiac Rate: NL - RATE OF 94 BPM EKG Rhythm: Sinus Rhythm EKG Comparison: No Significant Change - EKG SIMILAR TO ONE TAKEN 01/12/18 Summary of EKG Findings: EKG SHOWED SINUS RHYTHM WITH RATE OF 94 BPM, NO ST ELEVATION, EKG SIMILAR TO ONE TAKEN 01/12/18 Re-Evaluation - Re-Evaluation First Eval Re-Evaluation Time: 12:05 Change: Improved Comment: Pain rates pain 7/10. Second Eval Re-Evaluation Time: 15:00 Change: Improved Comment: I discussed all the findings and test results with the patient. Patient was instructed to return to the emergency room immediately if any of the symptoms return or worsens. Plan of care was discussed with the patient and understands and agrees. All questions were answered at patient satisfaction. There were no further complaints or concerns. Lung exam before discharge: CTA B /L. Good air exchange. No wheezing or crackles heard. CVS: S1 and S2 present. No murmurs appreciated. Patient is alert and oriented x 3. Patient is hemodynamically stable. Patient will be discharged home with follow up PCP in the next 2-3 days Chest Pain Course/Dx - Course Assessment/Plan: Patient is a 57 y/o F w/ c/o chest pain, SOB, N/V onsetting this morning. Chest pain is reported to have onset at 0100 this morning. Pain is described as constant and sharp/stabbing. Chest pain is at left side, she notes radiation of pain to back. She denies exacerbation of pain with movement or deep breaths. SOB is reported to have onset alongside chest pain. Patient reports she experienced nausea and one episode of vomiting after chest pain onset. Abdominal pain is denied. She reports diarrhea as well but notes this is due to the 800 mg magnesium BID she is taking. PMHx of uterine cancer with metastasis, last chemotherapy was reported to be 12/31. She states she did not take any pain medication today. On triage, pain is rated 9/10, nothing is noted to aggravate/alleviate Sx. Home medications and allergies are reviewed. The patient's past medical history significant for [id number] diabetes, and metastatic endometrial cancer. Past surgical history appendectomy, carpal tunnel syndrome, hysterectomy, oral and sinus surgery. Initially the patient was placed in a stave cutter and the physical exam shows some reproducible chest pain however, the patient also reports that the chest pain is a pressure- like pain. Therefore initially I believe that the patient has more atypical chest pain. Therefore the patient was given Zofran for nausea and morphine for the pain. The patient continued to have pain therefore she was given an additional dose of morphine. She also was given potassium and magnesium for hypokalemia and hypomagnesemia. The d-dimer was elevated therefore the patient is getting a chest CT to rule out pulmonary embolism. The patient has history of ded-[id number] diabetes therefore the patient is a risk for acute coronary syndrome therefore the patient was given an aspirin and nitroglycerin. Blood work shows a slight anemia which is her baseline, low potassium and magnesium. Urinalysis is negative for UTI. The patient is 2 troponins 4 hours apart are still negative. The patient's symptoms have significantly improved with the morphine and did not have any effect with aspirin or in the nitroglycerin. Therefore believe that the patient's symptoms are secondary to muscular skeletal pain. The chest CT shows a negative for an pulmonary embolus. I discussed all the findings and test results with the patient. Patient was instructed to return to the emergency room immediately if any of the symptoms return or worsens. Plan of care was discussed with the patient and understands and agrees. All questions were answered at patient satisfaction. There were no further complaints or concerns. Lung exam before discharge: CTA B /L. Good air exchange. No wheezing or crackles heard. CVS: S1 and S2 present. No murmurs appreciated. Patient is alert and oriented x 3. Patient is hemodynamically stable. Patient will be discharged home with follow up PCP in the next 2-3 days. Heart score is = 2. - Diagnoses Provider Diagnoses: Atypical chest pain Discharge - Sign-Out/Discharge Documenting (check all that apply): Patient Departure - discharge - Discharge Plan Condition: Stable Disposition: HOME Prescriptions: oxyCODONE/Acetamin 5/325 MG* [Percocet 5/325 TAB*] 1 tab PO Q6H PRN #12 tab MDD 4 PRN Reason: Pain Patient Education Materials: Chest Pain (ED) Referrals: Landon Funk MD [Primary Care Provider] - 3 Days Additional Instructions: RETURN TO ED FOR ANY NEW OR WORSENING SYMPTOMS. FOLLOW UP WITH PRIMARY CARE PHYSICIAN IN 2-3 DAYS. - Billing Disposition and Condition Condition: STABLE Disposition: Home - Attestation Statements Document Initiated by Junior: Yes Documenting Scribe: GURJIT CEBALLOS Provider For Whom Junior is Documenting (Include Credential): SOCORRO ALMEIDA MD Scribe Attestation: GURJIT Dimas , scribed for SOCORRO ALMEIDA MD on 01/14/18 at 1851. Scribe Documentation Reviewed: Yes Provider Attestation: The documentation as recorded by the GURJIT miller accurately reflects the service I personally performed and the decisions made by me, SOCORRO ALMEIDA MD Status of Scribe Document: Viewed
[2018-01-14 10:42] LABS: INR 0.95 (0.77-1.02)
[2018-01-14 10:52] LABS: EGFR Non-African American 116.4 (>60)
[2018-01-14 11:27] LABS: Urine Appearance Clear; Urine Blood Negative (Negative); Urine Color Yellow; Urine Ketones 1+ (Negative); Urine Protein Negative (Negative); Urine Specific Gravity 1.018 (1.010-1.030); Urine Urobilinogen Negative (Negative)
[2018-01-14 15:24] VITALS: BP 135/76
== END | disposition home or self-care (01) ==
LOC: ED 09:37
DX: R07.89 Other chest pain (principal); E11.9 Type 2 diabetes mellitus without complications
CPT/HCPCS: 36415; 71045; 71275; 80053; 81003; 82550; 82553; 83605; 83735; 83880; 84443; 84484; 85025; 85379; 85610; 85730; 93005; 96374; 96375; 96376; 99285; A9270-GY; J1642; J2270; J3475; Q9967

== ENCOUNTER 2018-05-20 12:28 | Emergency (ER) | payer MEDICARE ==
[2018-05-20] MEDS ORDERED: NS 0.9% 1000 ML** 1,000 ML IV ONE (12:46)
--- NOTE | 2018-05-20 12:47 | ED ---
GI/ HPI - HPI Summary HPI Summary: Patient is a 58-year-old female who presents to the emergency department for hematuria times one day. Patient has a history of metastatic endometrial cancer and is currently receiving chemotherapy. She follows with oncologist, Dr. Funk. Patient denies fever, chills, dysuria/frequency/urgency. Pt. notes an episode of N/V. She notes chronic abdominal pain/left flank pain without change as well as chronic shortness of breath without change. Patient is not anticoagulated. Other past medical history type 2 diabetes. Symptoms are moderate in severity. No current modifying factors. - History of Current Complaint Chief Complaint: EDUrogenitalProblems Time Seen by Provider: 05/20/18 12:36 Stated Complaint: POSS BLOOD IN URINE PER PT Hx Obtained From: Patient Hx Last Menstrual Period: post menopause Pain Intensity: 9 - Additional Pertinent History Primary Care Physician: [id number] - Allergy/Home Medications Allergies/Adverse Reactions: Allergies Allergy/AdvReac Type Severity Reaction Status Date / Time bee pollen Allergy Hives Verified 11/24/17 07:26 monosodium glutamate Allergy Headache Verified 11/24/17 07:26 PMH/Surg Hx/FS Hx/Imm Hx Previously Healthy: No - metastatic endometrial cancer Endocrine/Hematology History: Reports: Hx Diabetes Cardiovascular History: Denies: Hx Hypertension, Hx Pacemaker/ICD History: Reports: Hx Renal Disease - RT DISTAL URETERAL STRICTURE., Other Problems/Disorders - Uterine Cancer Musculoskeletal History: Reports: Hx Arthritis - RT HAND Sensory History: Reports: Hx Contacts or Glasses - CONTACTS, WILL WEAR GLASSES DAY OF SURGERY Denies: Hx Hearing Aid Opthamlomology History: Reports: Hx Contacts or Glasses - CONTACTS, WILL WEAR GLASSES DAY OF SURGERY Neurological History: Reports: Other Neuro Impairments/Disorders - concussions x2 Psychiatric History: Reports: Hx Depression Denies: Hx Eating Disorder, Hx Panic Disorder, Hx of Violent Episodes Against Others - Cancer History Cancer Type, Location and Year: UTERINE 2014. LUNG 2018 Hx Chemotherapy: Yes Hx Radiation Therapy: Yes - Surgical History Surgery Procedure, Year, and Place: APPENDECTOMY. ORAL SURGERY. SINUS SURGERY. CARPAL TUNNEL RELEASE. HYSTERECTOMY. CYST REMOVAL 2017 Hx Anesthesia Reactions: No Infectious Disease History: No Infectious Disease History: Denies: Traveled Outside the [place] in Last 30 Days - Family History Known Family History: Positive: Non-Contributory Negative: Cardiac Disease, Hypertension, Diabetes - Social History Occupation: Retired Lives: Alone Alcohol Use: None Alcohol Amount: since CA dx Hx Substance Use: No Substance Use Type: Reports: None Hx Tobacco Use: No Smoking Status (MU): Never Smoked Tobacco Have You Smoked in the Last Year: No Review of Systems Constitutional: Negative Negative: Fever, Chills Cardiovascular: Negative Negative: Palpitations, Chest Pain Positive: Shortness Of Breath - chronic secondary to mets Positive: Abdominal Pain - chronic, Vomiting, Nausea. Negative: Diarrhea Positive: flank pain - chronic left, hematuria. Negative: burning, dysuria, frequency Musculoskeletal: Negative Skin: Negative Neurological: Negative All Other Systems Reviewed And Are Negative: Yes Physical Exam Triage Information Reviewed: Yes Vital Signs On Initial Exam: Initial Vitals Temp Pulse Resp BP Pulse Ox 97.9 F 95 25 133/83 100 05/20/18 12:34 05/20/18 12:34 05/20/18 12:34 05/20/18 12:34 05/20/18 12:34 Vital Signs Reviewed: Yes Appearance: Positive: Thin - pt. sittiing up in bed in NAD. Appears tired but nontoxic. Skin: Positive: Warm, Dry Head/Face: Positive: Normal Head/Face Inspection Eyes: Positive: Normal, EOMI, UMER Neck: Positive: Supple, Nontender Respiratory/Lung Sounds: Positive: Clear to Auscultation, Breath Sounds Present Cardiovascular: Positive: Normal, RRR Abdomen Description: Positive: Other: - Abd. is soft with diffuse tenderness in all quadrants which pt. states is normal. Left flank pain which pt. states is normal Neurological: Positive: Normal, CN Intact II-III Psychiatric: Positive: Affect/Mood Appropriate Diagnostics - Vital Signs Vital Signs Temp Pulse Resp BP Pulse Ox 05/20/18 12:34 97.9 F 95 25 133/83 100 - Laboratory Result Diagrams: 05/20/18 13:03 05/20/18 13:03 Lab Statement: Any lab studies that have been ordered have been reviewed, and results considered in the medical decision making process. GIGU Course/Dx - Course Course Of Treatment: Pt. presenting for hematuria. She is afebrile with stable VS. Basic labs and urine ordered. CBC shows normal CBC. CMP shows glucose 358 , mag 1.5, crp 12. U/A is nitrate positive with RBCs and WBCs. Pt. had a CT scan of abd./pelvis on 3/27/19 which showed colonic mass without nephrolithiasis. Pt. does have left CVA tenderness but she states this is chronic for her without change. Will treat with bactrim based on previous cultures. Pt. was given a 1LNS. Glucose improved to 194 on finger stick. Mag PO also given. Pt. notes she has had a poor diet recently and sugar has been high at home. Advised close f.u with PCP and Onc. on Tuesday. To return to ER over weekend for fever, vomting, worsening sxs. Pt. understands and agrees with plan. - Diagnoses Differential Diagnoses - Female: Renal Colic, Sepsis, Urinary Tract Infection Provider Diagnoses: UTI (urinary tract infection), Hypomagnesemia, Hyperglycemia Discharge - Sign-Out/Discharge Documenting (check all that apply): Patient Departure Patient Received Moderate/Deep Sedation with Procedure: No - Discharge Plan Condition: Good Disposition: HOME Prescriptions: Sulfamethox/Trimethoprim DS* [Bactrim DS 800/160 TAB*] 1 tab PO BID #20 tab Patient Education Materials: Urinary Tract Infection in Women (ED) Referrals: Landon Funk MD [Primary Care Provider] - Additional Instructions: Call Dr. Funk's office Tuesday for a close follow up appointment Take antibiotic as directed Increase fluids Return to ER for fever, vomiting, increased pain, or if concerned - Billing Disposition and Condition Condition: GOOD Disposition: Home
[2018-05-20 13:13] LABS: ABS Basophils 0 10^3/ul (0-0.2); ABS Eosinophils 0.1 10^3/ul (0-0.6); ABS Lymphocytes 0.7 10^3/ul (1.0-4.8); ABS Monocytes 0.3 10^3/ul (0-0.8); ABS Neutrophils 3.8 10^3/ul (1.5-7.7); ABS Nucleated RBC 0 10^3/ul; Eosinophil % 1.1 %; Hematocrit 36 % (33-41); Lymphocyte % 14.9 %; Mean Corpuscular HGB Conc 33 g/dL (31-36); Mean Corpuscular Hemoglobin 31 pg (27-31); Mean Corpuscular Volume 93 fL (80-97); Mean Platelet Volume 7.8 fL (7.4-10.4); Nucleated Red Blood Cells % 0; Platelet Count 221 10^3/uL (150-450); Red Blood Count 3.87 10^6 /uL (3.70-4.87); Red Cell Distribution Width 12 % (10.5-15); White Blood Count 4.9 10^3/uL (3.5-10.8)
[2018-05-20 13:36] LABS: Albumin 3.9 g/dL (3.2-5.2); Albumin/Globulin Ratio 1.2 (1-3); BUN/Creatinine Ratio 22.2 (8-20); C Reactive Protein 12.84 mg/L (<8.01); Calcium 9.7 mg/dL (8.6-10.3); EGFR African American 117.4 (>60); EGFR Non-African American 97.1 (>60); Globulin 3.2 g/dL (2-4); Magnesium 1.5 mg/dL (1.9-2.7); Total Bilirubin 0.3 mg/dL (0.2-1.0); Total Protein 7.1 g/dL (6.4-8.9)
[2018-05-20 14:06] VITALS: BP 109/63
[2018-05-20 14:45] LABS: Urine Appearance Cloudy; Urine Bacteria 1+ (Absent); Urine Bilirubin Negative (Negative); Urine Blood 3+ (Negative); Urine Color Yellow; Urine Glucose 3+(>=500 mg/dL) (Negative); Urine Ketones Negative (Negative); Urine Nitrite Positive (Negative); Urine Protein Negative (Negative); Urine Red Blood Cell 3+(>10/hpf) (Absent); Urine Specific Gravity 1.026 (1.010-1.030); Urine Urobilinogen Negative (Negative); Urine White Blood Cell 3+(>20/hpf) (Absent)
[2018-05-20] MEDS ORDERED: Sulfamethox/Trimethoprim DS 800/160* TAB PO ONE (15:04)
[2018-05-20] MEDS ORDERED: Magnesium Oxide TAB* 400 MG PO ONE (15:05)
--- NOTE | 2018-05-23 05:45 | PN ---
Progress Note - Progress Note Date of Service: 05/20/18 Note: Uirne culture preliminary grew e. coli Patient placed on bactrim prior to discharge. Will await sensitivities.
== END 2018-05-20 16:21 | disposition home or self-care (01) ==
LOC: ED 12:28
DX: N39.0 Urinary tract infection, site not specified (principal); E83.42 Hypomagnesemia; E11.65 Type 2 diabetes mellitus with hyperglycemia; C54.1 Malignant neoplasm of endometrium; C79.9 Secondary malignant neoplasm of unspecified site
CPT/HCPCS: 36415; 80053; 81003; 81015; 83605; 83735; 85025; 86140; 87077; 87086; 87186; 96374; 96376; 99283; A9270-GY; J1642

== ENCOUNTER 2018-06-05 07:43 | Emergency (ER) | payer MEDICARE ==
--- NOTE | 2018-06-05 07:52 | ED ---
Complex/Multi-Sys Presentation - HPI Summary HPI Summary: Patient is a 58 y/o F presenting to ED via ambulance with multiple complaints including chest pain, back pain, abdominal pain SOB, headache, numbness, dizziness, fatigue, N/V, cough. EMS reports that the patient is a cancer patient with multiple metastases from pelvis to lungs, esophageal area, back, ribs, stomach. EMS states that she said, "the only thing not affected by her cancer is her heart". In room, the patient reports back pain and chest pain which is most severe under left ribs, sternum. Pain has been present for the past week. She notes that she saw Dr. Funk's PUNCHING MACHINE OPERATOR last week, current presentation of pain started around then. Patient notes she had an endoscopy done two weeks prior. Patient reports pain had been intermittent before last week but since last week pain has been constant. Patient is on oxycodone, 5 mg, twice every six hours when needed, noting it worked at first but is not effective currently. Pain is described as a stabbing, waxes and wanes in intensity, and is rated 10/10 in room. SOB is noted as well, deep breaths aggravate pain. She notes MELO since last week additionally, states that she had an episode of double vision which has since resolved. At present, she reports some MELO and numbness. Palpitations are denied. Patient reports no pain in legs but notes Hx of neuropathy at BLE. Dizziness with sitting/standing up is endorsed. Patient reports fatigue for the past week as well. She notes nausea when she experiences gastritis and when she takes her medications. She reports some abdominal pain but relates this to her gastritis.Patient reports multiple episodes of nausea and vomiting "because of everything". She notes cough associated with N/V. Difficulty eating/drinking is reported, last meal was yesterday morning. Patient states that she is on multiple medications. No chemotherapy since March 2018 due to episodes of pain. Patient is not receiving hospice/ palliative care at present. She is unsure about future plans of care, notes that she has an appointment with Dr. Funk today at 1600. Patient notes she wants to go to [facility] for a second opinion of her care. Patient has not taken pain medications since 2229 last night, 5 mg x2 oxycodone. PMHx of type 2 diabetes, patient is on metformin, last took three days ago. PSHx of total hysterectomy, bladder surgery, removal of two lymph node stems. Home medications, allergies, and nurse's notes are reviewed. - History Of Current Complaint Hx Obtained From: Patient, EMS Onset/Duration: Lasting Weeks - current presentation of pain onset a week ago, Still Present, Resolved - DOUBLE VISION, Worse Since Timing: Constant, Weeks - one week Severity Currently: Severe Severity Initially: Severe Location: Pain At: - chest, back, abdomen, head Character: Sharp, Typical Headache Aggravating Factor(s): deep breaths aggravate pain/SOB, sitting/standing up aggravates dizziness Alleviating Factor(s): pain medication at first, but not at present Associated Signs And Symptoms: Positive: Dizziness, Weakness - fatigue, Headache , SOB, Cough, Chest Pain, Nausea, Vomiting, Abdominal Pain, Back Pain, Other - numbness, decreased PO intake, double vision is endorsed; palpitations, pain at legs is denied.. Negative: Palpitations - Allergies/Home Medications Allergies/Adverse Reactions: Allergies Allergy/AdvReac Type Severity Reaction Status Date / Time bee pollen Allergy Hives Verified 11/24/17 07:26 monosodium glutamate Allergy Headache Verified 11/24/17 07:26 PMH/Surg Hx/FS Hx/Imm Hx Endocrine/Hematology History: Reports: Hx Diabetes Cardiovascular History: Denies: Hx Hypertension, Hx Pacemaker/ICD GI History: Reports: Other GI Disorders - gastritis History: Reports: Hx Renal Disease - RT DISTAL URETERAL STRICTURE., Other Problems/Disorders - Uterine Cancer Musculoskeletal History: Reports: Hx Arthritis - RT HAND Sensory History: Reports: Hx Contacts or Glasses - CONTACTS, WILL WEAR GLASSES DAY OF SURGERY Denies: Hx Hearing Aid Opthamlomology History: Reports: Hx Contacts or Glasses - CONTACTS, WILL WEAR GLASSES DAY OF SURGERY Neurological History: Reports: Other Neuro Impairments/Disorders - concussions x2 Psychiatric History: Reports: Hx Depression Denies: Hx Eating Disorder, Hx Panic Disorder, Hx of Violent Episodes Against Others - Cancer History Cancer Type, Location and Year: UTERINE 2014. LUNG 2018 Hx Chemotherapy: Yes Hx Radiation Therapy: Yes - Surgical History Surgery Procedure, Year, and Place: APPENDECTOMY. ORAL SURGERY. SINUS SURGERY. CARPAL TUNNEL RELEASE. HYSTERECTOMY. CYST REMOVAL 2017 Hx Anesthesia Reactions: No - Family History Known Family History: Negative: Cardiac Disease, Hypertension, Diabetes - Social History Alcohol Use: None Alcohol Amount: since CA dx Hx Substance Use: No Substance Use Type: Reports: None Hx Tobacco Use: No Smoking Status (MU): Never Smoked Tobacco Have You Smoked in the Last Year: No Review of Systems Positive: Fatigue Eyes: Other - POSITIVE - DOUBLE VISION, SINCE RESOLVED Positive: Chest Pain. Negative: Palpitations Positive: Shortness Of Breath, Cough Gastrointestinal: Other - POSITIVE - DECERASED PO INTAKE Positive: Abdominal Pain, Vomiting, Nausea Musculoskeletal: Other - POSITIVE - BACK PAIN; NEGATIVE - PAIN AT LEGS Neurological: Other - POSITIVE - DIZZINESS Positive: Headache, Numbness All Other Systems Reviewed And Are Negative: Yes Physical Exam - Summary Physical Exam Summary: Appearance: well appearing, moderate pain distress, shaking with pain Skin: warm, dry, reflects adequate perfusion Head/face: normal Eyes: EOMI, UMER ENT: mucous membranes moist Neck: supple, non-tender Respiratory: CTA, breath sounds present Cardiovascular: RRR, pulses symmetrical Abdomen: LUQ tenderness, soft Bowel Sounds: present Musculoskeletal: normal, strength/ROM intact Neuro: normal, sensory motor intact, A&Ox3 Triage Information Reviewed: Yes Vital Signs On Initial Exam: Initial Vitals Temp Pulse Resp BP Pulse Ox 97.9 F 83 22 138/79 100 06/05/18 07:44 06/05/18 07:44 06/05/18 07:44 06/05/18 07:44 06/05/18 07:44 Vital Signs Reviewed: Yes Diagnostics - Laboratory Lab Statement: Any lab studies that have been ordered have been reviewed, and results considered in the medical decision making process. - Radiology chest x-ray Radiology Interpretation Completed By: Radiologist Summary of Radiographic Findings: IMPRESSION: No active cardiopulmonary disease is noted. THIS REPORT WAS REVIEWED BY DR. MCBRIDE. Re-Evaluation - Re-Evaluation First Eval Re-Evaluation Time: 08:33 Change: Improved Comment: Patient reports improvement of pain after medications. Complex Multi-Symp Course/Dx Course Of Treatment: Nurse's notes reviewed. 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 She was doing much better after intramuscular injections of Toradol, Dilaudid and a topical lidocaine patch in the area of most discomfort in the left upper quadrant abdomen. She reports not having any palliative care measures and has not yet considered hospice. I discussed with her oncologist and they sent a team assembler to evaluate her in the ER. We will start her on fentanyl patch for basal pain control. She does have a follow-up appointment today for radiation oncology. - Diagnoses Provider Diagnoses: Endometrial cancer, Metastasis, LUQ abdominal pain, Cancer associated pain - Physician Notifications Discussed Care Of Patient With: Landon Funk Time Discussed With Above Provider: 08:39 Instructed by Provider To: Other - Patient's case was discussed with Dr. Funk at 0839, he is agreeable with fentanyl patch and will come to ED to evaluate patient. Discharge - Sign-Out/Discharge Documenting (check all that apply): Patient Departure - discharge Patient Received Moderate/Deep Sedation with Procedure: No - Discharge Plan Condition: Improved Disposition: HOME Patient Education Materials: Endometrial Cancer (DC) Referrals: Landon Funk MD [Primary Care Provider] - Additional Instructions: go to your appt today as scheduled. Return if worse, new symptoms or other concerns. Patch to be taken off in 12hrs. Discuss pain management with alternate regimens such as topical capsacin, lidocaine patches, medical marijuana, and topical pain medication patches. Also discuss your 2nd opinion and options for Palliative care or Hospice care. - Billing Disposition and Condition Condition: IMPROVED Disposition: Home - Attestation Statements Document Initiated by Tomibgavin: Yes Documenting Scribe: GURJIT CEBALLOS Provider For Whom Scribe is Documenting (Include Credential): CHRISTOFER MCBRIDE MD Scribe Attestation: GURJIT Dimas, scribed for CHRISTOFER MCBRIDE MD on 06/05/18 at 1218. Scribe Documentation Reviewed: Yes Provider Attestation: The documentation as recorded by the GURJIT miller accurately reflects the service I personally performed and the decisions made by , CHRISTOFER MCBRIDE MD Status of Scribe Document: Viewed
[2018-06-05] MEDS ORDERED: Ketorolac INJ* 60 MG/2 ML VIAL IM ONE (07:58)
[2018-06-05] MEDS ORDERED: Lidocaine PATCH 5%* 1 PATCH TRANSDERM ONE (07:58)
[2018-06-05] MEDS ORDERED: HYDROmorphone INJ1* 1 MG/ML SYRINGE IM ONE (08:00)
--- OUTSIDE RECORDS SUMMARY | 2018-06-05 08:27 | XMS REPORT | Continuity of Care Document ---
:1960 External Reference #:[id number] Author Name Milagros Reinoso PA-C Address [address] [place] [address] Care Team Providers Name Role Phone Landon Funk MD Care Team Information Support Staff Unavailable Payers Date Identification Numbers Payment Provider Subscriber Policy Number: [id number] Medicare Coni Dawson PayID: [id number] [facility] [address] [facility] [place] [address] Advance Directives Description No Information Available Problems Date Description Provider Status Onset: 05/22/2018 Gastrointestinal tract finding Milagros Reinoso PA-C Active Onset: 05/22/2018 Esophageal dysphagia Milagros Reinoso PA-C Active Onset: 05/22/2018 Type 2 diabetes mellitus Milagros Reinoso PA-C Active Family History Date Family Member(s) Observation Comments Father due to Prostate Cancer () Mother Heart Disease First Sister Breast Cancer Social History Type Date Description Comments Sex Unknown Tobacco Use Start: Unknown Patient has never smoked Smoking Status Reviewed: 05/22/18 Patient has never smoked Allergies, Adverse Reactions, Alerts Description No Known Drug Allergies Medications Medication Date Status Form Strength Qnty SIG Indications Ordering Provider Metformin HCL Active Tablets 1000mg Take 1 Unknown 000 Tablet By Mouth Twice A Day Hydrocodone-A 0 Active Tablets 5-325mg Take 1 Tab Unknown cetaminophen 000 By Mouth Every 6 Hours as Needed Sulfamethoxaz 0 Active Tablets 800-160mg Take 1 Unknown ole/Trimethop 000 Tablet By rim DS Mouth Twice A Day Magnesium 0 Active Tablets 400mg Take 2 Unknown Oxide 000 Tablets By Mouth Twice A Day Omeprazole [address] 20mg Take 1 Unknown 000 Tablet By Mouth Twice A Day [facility] Vitamin 00/00/0 Active Tablets 1000mcg Take 1 Unknown B-12 000 Tablet By Mouth Every Day Immunizations Description No Information Available Vital Signs Date Vital Result Comment 05/22/2018 10:05am Height 69 inches 5'9" Weight 164.00 lb BP Systolic 121 mmHg BP Diastolic 80 mmHg Heart Rate 93 /min BMI (Body Mass Index) 24.2 kg/m2 Results Description No Information Available Procedures Description No Information Available Encounters Description No Information Available Plan of Treatment Future Appointment(s):05/23/2018 8:00 am - Amadou Benson DO at [facility]05/22/2018 - DORI [id number] Dysphagia, pharyngoesophageal [id number] Abnormal findings on diagnostic imaging of other parts of digestive tract
[2018-06-05] MEDS ORDERED: fentaNYL PATCH 25 MCG/HR TRANSDERM ONE (08:41)
[2018-06-05 09:05] VITALS: BP 143/89
--- NOTE | 2018-06-05 09:26 | PN ---
Progress Note - Progress Note Date of Service: 06/05/18 SOAP: Subjective: []Presented to the ER this AM with persistent pain. Pain to epigastric/sternal area radiating to back. Seen last Tue. 05/29 with similar complaints and switched from hydrocodone/apap to oxycodone 5-10 mg q6hrs as well as referral for RT consult. States pain meds have done "nothing." Pain with swallowing and has not eaten solid foods in some time. Can tolerate liquids but doesn't like certain things. Received IV pain meds here and new Fentanyl patch placed. Tells me she has had some left sided facial numbness with blurred vision. Worried this is related to oxycodone or diabetes. "I thought I was having a stroke at one point." Tells me it is "all better now." Home meds reviewed Objective: [] Vital Signs Temp Pulse Resp BP Pulse Ox 98.2 F 95 18 143/89 96 06/05/18 09:03 06/05/18 09:03 06/05/18 09:03 06/05/18 09:03 06/05/18 09:03 A&Ox3, EOMI, PERRLA CN II-XII intact Equal strength bilat., SILVERIO without obvious weakness HRR, S1S2 LS clear CXR personally reviewed, no acute findings Hypoactive BS Assessment: []58 yo female with metastatic endometrial cancer, recently progressive at the distal esophagus. Presented to the ER with persistent pain now improved following administration of IV pain meds and now in no acute distress with plan for outpatient management. Complaint of intermittent facial numbness without exam findings today and uncommon for brain mets, however her cancer has not behaved traditionally and I would like to be cautious by working it up further. Plan: []1. Pain: cont. oxycodone, can increase to 5-10mg PO q4hrs PRN - add Fentanyl 125 mcg patch q72 hrs, reviewed use and possible S/Es - consult RT already scheduled for today @ 1430 2. Facial numbness: fortunately not persistent, however recently progressive cancer therefore we will obtain a MRI of the head as an outpatient FU Oncology 06/14/18
[2018-06-05] MEDS ORDERED: Lidocaine Patch REMOVE* 1 NOTE MISC SCH (21:00)
== END 2018-06-05 09:03 | disposition home or self-care (01) ==
LOC: ED 07:43
DX: C54.1 Malignant neoplasm of endometrium (principal); C78.89 Secondary malignant neoplasm of other digestive organs; R10.12 Left upper quadrant pain; G89.3 Neoplasm related pain (acute) (chronic); E11.9 Type 2 diabetes mellitus without complications; C78.00 Secondary malignant neoplasm of unspecified lung; Z79.84 Long term (current) use of oral hypoglycemic drugs; R20.0 Anesthesia of skin
CPT/HCPCS: 71046; 96372; 99282; A9270-GY; J1170; J1885

== ENCOUNTER 2018-06-06 14:12 | Inpatient (IN) | payer MEDICARE ==
[2018-06-06] MEDS ORDERED: fentaNYL PATCH 25 MCG/HR TRANSDERM ONE (14:15)
[2018-06-06] MEDS ORDERED: HYDROmorphone INJ1* 1 MG/ML SYRINGE IV ONE (14:17)
[2018-06-06] MEDS ORDERED: Alteplase (CATHFLO)* 2 MG VIAL IV ONE (14:17)
[2018-06-06] MEDS ORDERED: Lorazepam PYXIS KEY PRN (14:55)
[2018-06-06] MEDS: NS 0.9% 1000 ML** 1,000 ML IV SCH (16:24)
[2018-06-06] MEDS: Ondansetron ODT TAB* 4 MG SL PRN (16:25)
[2018-06-06] MEDS: Enoxaparin(*) 40 MG/0.4 ML SYR SUBCUT SCH (16:25)
[2018-06-06] MEDS: HYDROmorphone INJ1* 1 MG/ML SYRINGE IV SLOW PU PRN ×3 (16:33→21:59)
[2018-06-06 17:42] LABS: ABS Basophils 0 10^3/ul (0-0.2); ABS Eosinophils 0 10^3/ul (0-0.6); ABS Monocytes 0.5 10^3/ul (0-0.8); ABS Neutrophils 5.2 10^3/ul (1.5-7.7); ABS Nucleated RBC 0 10^3/ul; Eosinophil % 0.6 %; Hematocrit 37 % (33-41); Hemoglobin 12.8 g/dL (12.0-16.0); Lymphocyte % 15.3 %; Mean Corpuscular HGB Conc 34 g/dL (31-36); Mean Corpuscular Hemoglobin 31 pg (27-31); Mean Corpuscular Volume 90 fL (80-97); Mean Platelet Volume 7.4 fL (7.4-10.4); Nucleated Red Blood Cells % 0; Platelet Count 272 10^3/uL (150-450); Red Blood Count 4.15 10^6 /uL (3.70-4.87); Red Cell Distribution Width 12 % (10.5-15); White Blood Count 6.8 10^3/uL (3.5-10.8)
[2018-06-06 18:03] LABS: Albumin/Globulin Ratio 1.1 (1-3); BUN/Creatinine Ratio 28.4 (8-20); EGFR African American 97.5 (>60); EGFR Non-African American 80.6 (>60); Globulin 3.5 g/dL (2-4); Magnesium 1.5 mg/dL (1.9-2.7); Total Bilirubin 0.4 mg/dL (0.2-1.0); Total Protein 7.5 g/dL (6.4-8.9)
[2018-06-06] MEDS: fentaNYL Patch Check Q Shift 1 NOTE FOLLOW UP SCH (18:41)
[2018-06-06] MEDS: metFORMIN* 500 MG TAB PO SCH (21:48)
[2018-06-06] MEDS ORDERED: Lidocaine Patch REMOVE* 1 NOTE MISC PATCH OFF PRN (22:09)
[2018-06-06] MEDS: Lidocaine PATCH 5%* 1 PATCH TRANSDERM PRN (22:33)
[2018-06-07] MEDS: HYDROmorphone INJ1* 1 MG/ML SYRINGE IV SLOW PU PRN ×7 (01:53→22:38)
[2018-06-07] MEDS: LORazepam INJ* 2 MG/ML 1 ML VIAL IV PUSH PRN (01:54)
[2018-06-07] MEDS: NS 0.9% 1000 ML** 1,000 ML IV SCH ×2 (02:57→13:01)
[2018-06-07 05:39] LABS: Albumin 3.4 g/dL (3.2-5.2); Albumin/Globulin Ratio 1.1 (1-3); BUN/Creatinine Ratio 24.6 (8-20); Calcium 8.8 mg/dL (8.6-10.3); EGFR African American 113.3 (>60); EGFR Non-African American 93.6 (>60); Potassium 3.8 mmol/L (3.5-5.0); Total Bilirubin 0.4 mg/dL (0.2-1.0); Total Protein 6.4 g/dL (6.4-8.9)
[2018-06-07] MEDS: fentaNYL Patch Check Q Shift 1 NOTE FOLLOW UP SCH ×2 (07:17→18:29)
[2018-06-07] MEDS: Ondansetron ODT TAB* 4 MG SL PRN (08:10)
[2018-06-07 08:51] LABS: Magnesium 1.4 mg/dL (1.9-2.7)
[2018-06-07] MEDS: metFORMIN* 500 MG TAB PO SCH ×2 (09:03→20:00)
[2018-06-07] MEDS ORDERED: fentaNYL PATCH 50 MCG/HR TRANSDERM SCH (12:00)
--- NOTE | 2018-06-07 12:35 | PN ---
Progress Note - Progress Note Date of Service: 06/07/18 SOAP: Subjective: [Reports that she struggled with pain control overnight, better this am since increasing dose of dilaudid. Eating more. Tolerating soft food including yogurt and smoothies. Taking in fluids. Objective: [ Enoxaparin Sodium (Lovenox(*)) 40 mg SUBCUT Q24H [facility] Last Admin: 06/06/18 16:25 Dose: 40 mg Fentanyl (Duragesic Patch 50 Mcg/Hr*) 50 mcg TRANSDERM Q72H [facility] Heparin Sodium (Porcine) (Heparin Flush Port (Ivad)) 5 ml FLUSH DAILY [facility]; Protocol Last Admin: 06/07/18 08:10 Dose: Not Given Hydromorphone HCl (Dilaudid Inj1s*) 2 mg IV SLOW PU Q2H PRN PRN Reason: PAIN Last Admin: 06/07/18 09:02 Dose: 1.5 mg Sodium Chloride (Ns 0.9% 1000 Ml) 1,000 mls @ 100 mls/hr IV PER RATE [facility] Last Admin: 06/07/18 02:57 Dose: 100 mls/hr Lidocaine (Lidoderm 5% Patch*) 1 patch TRANSDERM DAILY PRN PRN Reason: PAIN IN LOWER BACK Last Admin: 06/06/18 22:33 Dose: 1 patch Lorazepam (Ativan Inj*) 0.5 mg IV PUSH Q4H PRN PRN Reason: Anxiety/sleep/nausea Last Admin: 06/07/18 01:54 Dose: 0.5 mg Metformin HCl (Glucophage*) 500 mg PO BID [facility] Last Admin: 06/07/18 09:03 Dose: 500 mg Miscellaneous (Ativan Pyxis Zapata) 1 ea N/A .ATIVAN IV ZAPATA PRN PRN Reason: PYXIS ZAPATA Ondansetron HCl (Zofran Odt Tab*) 4 mg SL Q6H PRN PRN Reason: NAUSEA/VOMITING Last Admin: 06/07/18 08:10 Dose: 4 mg Pantoprazole Sodium (Protonix Iv*) 40 mg IV BID [facility] Pharmacy Profile Note (Fentanyl Patch Check Q Shift) 1 note FOLLOW UP 0700, 1900 [facility] Last Admin: 06/07/18 07:17 Dose: 1 note Pharmacy Profile Note (Lidocaine Patch Remove*) 1 note PATCH OFF 2100 PRN PRN Reason: REMOVE PATCH IF USED Sucralfate (Sucralfate Susp) 1 gm PO 0630,1100,1600,2100 [facility] Laboratory Results - last 24 hr 06/06/18 06/06/18 06/06/18 16:55 17:36 17:36 WBC 6.8 RBC 4.15 Hgb 12.8 Hct 37 MCV 90 MCH 31 MCHC 34 RDW 12 Plt Count 272 MPV 7.4 Neut % (Auto) 76.9 Lymph % (Auto) 15.3 [place] % (Auto) 6.7 Eos % (Auto) 0.6 Baso % (Auto) 0.5 Absolute Neuts (auto) 5.2 Absolute Lymphs (auto) 1.0 Absolute Monos (auto) 0.5 Absolute Eos (auto) 0 Absolute Basos (auto) 0 Absolute Nucleated RBC 0 Nucleated RBC % 0 Sodium 134 L Potassium 4.0 Chloride 96 L Carbon Dioxide 28 Anion Gap 10 BUN 21 Creatinine 0.74 Est GFR ( Amer) 97.5 Est GFR (Non-Af Amer) 80.6 BUN/Creatinine Ratio 28.4 H Glucose 246 H POC Glucose (mg/dL) 264 H Calcium 10.0 Magnesium 1.5 L Total Bilirubin 0.40 AST 13 ALT 8 Alkaline Phosphatase 79 Total Protein 7.5 Albumin 4.0 Globulin 3.5 Albumin/Globulin Ratio 1.1 Prealbumin 14 L 06/06/18 06/07/18 06/07/18 21:49 05:13 08:13 WBC RBC Hgb Hct MCV MCH MCHC RDW Plt Count MPV Neut % (Auto) Lymph % (Auto) [place] % (Auto) Eos % (Auto) Baso % (Auto) Absolute Neuts (auto) Absolute Lymphs (auto) Absolute Monos (auto) Absolute Eos (auto) Absolute Basos (auto) Absolute Nucleated RBC Nucleated RBC % Sodium 134 L Potassium 3.8 Chloride 100 L Carbon Dioxide 29 Anion Gap 5 BUN 16 Creatinine 0.65 Est GFR ( Amer) 113.3 Est GFR (Non-Af Amer) 93.6 BUN/Creatinine Ratio 24.6 H Glucose 200 H POC Glucose (mg/dL) 297 H 200 H Calcium 8.8 Magnesium 1.4 L Total Bilirubin 0.40 AST 10 L ALT 6 L Alkaline Phosphatase 68 Total Protein 6.4 Albumin 3.4 Globulin 3.0 Albumin/Globulin Ratio 1.1 Prealbumin Vital Signs: Temp Pulse Resp BP Pulse Ox 98.1 F 75 16 117/67 99 06/07/18 07:25 06/07/18 07:25 06/07/18 10:00 06/07/18 07:25 06/07/18 07:25 Exam: Gen: 58 yo female in NAD HEENT: MMM CV: RRR, no m/r/g Resp: CTA, no w/c/r Abd: soft, epigastric TTP Ext: no edema Assessment: [58 yo female with metastatic endometrial CA admitted with intractable pain and poor po intake secondary to dysphagia from external compression of the distal esophageal with associated ulceration.] Plan: [1. Intractable pain - increase fentanyl patch to 50 mcg - increase IV dilaudid to 2mg q 2h prn - start PPI/carafate to help treat pain associated with ulceration 2. Metastatic endometrial CA - plan to start palliative RT to the distal esophagus later today - re-evaluate plans for systemic therapy following this hospitalization Dispo: PT/OT evals pending. Patient would benefit from ARIS, but she is resistant to that idea this morning. Will continue to re-eval discharge plan on a daily basis ]
[2018-06-07] MEDS: Pantoprazole IV* 40 MG IV SCH ×2 (12:53→20:00)
[2018-06-07] MEDS: Sucralfate SUSP 1 GM/10 ml 10 ML UDC PO SCH ×3 (12:54→22:38)
[2018-06-07] MEDS: Enoxaparin(*) 40 MG/0.4 ML SYR SUBCUT SCH (16:19)
[2018-06-08] MEDS: NS 0.9% 1000 ML** 1,000 ML IV SCH ×3 (00:45→15:09)
[2018-06-08] MEDS: HYDROmorphone INJ1* 1 MG/ML SYRINGE IV SLOW PU PRN ×6 (03:24→22:40)
[2018-06-08] MEDS: fentaNYL Patch Check Q Shift 1 NOTE FOLLOW UP SCH ×2 (06:05→19:02)
[2018-06-08] MEDS: Sucralfate SUSP 1 GM/10 ml 10 ML UDC PO SCH ×4 (06:05→21:17)
[2018-06-08] MEDS ORDERED: Magnesium Sulf 4 GM/100 ML IV* 4,000 MG/100 ML BAG IVPB ONE (08:20)
[2018-06-08] MEDS: metFORMIN* 500 MG TAB PO SCH ×2 (08:43→21:17)
[2018-06-08] MEDS: Pantoprazole IV* 40 MG IV SCH ×2 (08:44→21:17)
[2018-06-08 08:50] LABS: Hematocrit 29 % (33-41); Mean Corpuscular HGB Conc 34 g/dL (31-36); Mean Corpuscular Hemoglobin 31 pg (27-31); Mean Corpuscular Volume 91 fL (80-97); Red Blood Count 3.23 10^6 /uL (3.70-4.87); Red Cell Distribution Width 12 % (10.5-15); White Blood Count 5.9 10^3/uL (3.5-10.8)
[2018-06-08 09:10] LABS: Calcium 8.5 mg/dL (8.6-10.3); Potassium 3.9 mmol/L (3.5-5.0); Total Bilirubin 0.3 mg/dL (0.2-1.0)
[2018-06-08 09:16] LABS: Albumin/Globulin Ratio 1.2 (1-3); BUN/Creatinine Ratio 16.3 (8-20); EGFR Non-African American 129.7 (>60); Globulin 2.6 g/dL (2-4); Total Protein 5.6 g/dL (6.4-8.9)
[2018-06-08 09:47] LABS: ABS Basophils 0 10^3/ul (0-0.2); ABS Eosinophils 0 10^3/ul (0-0.6); ABS Lymphocytes 0.8 10^3/ul (1.0-4.8); ABS Monocytes 0.4 10^3/ul (0-0.8); ABS Neutrophils 4.7 10^3/ul (1.5-7.7); ABS Nucleated RBC 0 10^3/ul; Eosinophil % 0.6 %; Lymphocyte % 12.9 %; Nucleated Red Blood Cells % 0.1; Platelet Count Platelets clumped. 10^3/uL (150-450)
[2018-06-08] MEDS ORDERED: Zolpidem TAB* 5 MG PO PRN (09:57)
--- NOTE | 2018-06-08 10:06 | PN ---
Progress Note - Progress Note Date of Service: 06/08/18 SOAP: Subjective: [Difficulty with pain control and sleep overnight. Better this am. Reports that she is still tolerating soft foods well. Bread type foods, ie. muffins, pancakes, feel like they get stuck. No vomiting. ] Objective: [ Laboratory Results - last 24 hr 06/07/18 06/08/18 06/08/18 20:08 08:31 08:31 WBC 5.9 RBC 3.23 L Hgb 10.0 L Hct 29 L MCV 91 MCH 31 MCHC 34 RDW 12 Plt Count Platelets clumped. H MPV Not Reportable Neut % (Auto) 80.0 Lymph % (Auto) 12.9 [place] % (Auto) 6.2 Eos % (Auto) 0.6 Baso % (Auto) 0.3 Absolute Neuts (auto) 4.7 Absolute Lymphs (auto) 0.8 L Absolute Monos (auto) 0.4 Absolute Eos (auto) 0 Absolute Basos (auto) 0 Absolute Nucleated RBC 0 Nucleated RBC % 0.1 Sodium 134 L Potassium 3.9 Chloride 103 Carbon Dioxide 24 Anion Gap 7 BUN 8 Creatinine 0.49 L Est GFR ( Amer) 157.0 Est GFR (Non-Af Amer) 129.7 BUN/Creatinine Ratio 16.3 Glucose 175 H POC Glucose (mg/dL) 238 H Calcium 8.5 L Total Bilirubin 0.30 AST 12 L Alkaline Phosphatase 68 Total Protein 5.6 L Albumin 3.0 L Globulin 2.6 Albumin/Globulin Ratio 1.2 06/08/18 08:36 WBC RBC Hgb Hct MCV MCH MCHC RDW Plt Count MPV Neut % (Auto) Lymph % (Auto) [place] % (Auto) Eos % (Auto) Baso % (Auto) Absolute Neuts (auto) Absolute Lymphs (auto) Absolute Monos (auto) Absolute Eos (auto) Absolute Basos (auto) Absolute Nucleated RBC Nucleated RBC % Sodium Potassium Chloride Carbon Dioxide Anion Gap BUN Creatinine Est GFR ( Amer) Est GFR (Non-Af Amer) BUN/Creatinine Ratio Glucose POC Glucose (mg/dL) 186 H Calcium Total Bilirubin AST Alkaline Phosphatase Total Protein Albumin Globulin Albumin/Globulin Ratio Enoxaparin Sodium (Lovenox(*)) 40 mg SUBCUT Q24H [facility] Last Admin: 06/07/18 16:19 Dose: 40 mg Fentanyl (Duragesic Patch 50 Mcg/Hr*) 50 mcg TRANSDERM Q72H [facility] Last Admin: 06/07/18 13:02 Dose: 50 mcg Heparin Sodium (Porcine) (Heparin Flush Port (Ivad)) 5 ml FLUSH DAILY [facility]; Protocol Last Admin: 06/08/18 08:43 Dose: Not Given Hydromorphone HCl (Dilaudid Inj1s*) 2 mg IV SLOW PU Q2H PRN PRN Reason: PAIN Last Admin: 06/08/18 08:43 Dose: 2 mg Magnesium Sulfate (Magnesium Sulf 4 Gm/100 Ml Iv*) 4,000 mg in 100 mls @ 33.333 mls/hr IVPB ONCE ONE Stop: 06/08/18 11:19 Last Admin: 06/08/18 08:42 Dose: 33.333 mls/hr Sodium Chloride (Ns 0.9% 1000 Ml) 1,000 mls @ 50 mls/hr IV PER RATE [facility] Lidocaine (Lidoderm 5% Patch*) 1 patch TRANSDERM DAILY PRN PRN Reason: PAIN IN LOWER BACK Last Admin: 06/06/18 22:33 Dose: 1 patch Lorazepam (Ativan Inj*) 0.5 mg IV PUSH Q4H PRN PRN Reason: Anxiety/sleep/nausea Last Admin: 06/07/18 01:54 Dose: 0.5 mg Metformin HCl (Glucophage*) 500 mg PO BID [facility] Last Admin: 06/08/18 08:43 Dose: 500 mg Miscellaneous (Ativan Pyxis Zapata) 1 ea N/A .ATIVAN IV ZAPATA PRN PRN Reason: PYXIS ZAPATA Morphine Sulfate (Morphine Oral Concentrate*) 20 mg PO Q2H PRN PRN Reason: PAIN Ondansetron HCl (Zofran Odt Tab*) 4 mg SL Q6H PRN PRN Reason: NAUSEA/VOMITING Last Admin: 06/07/18 08:10 Dose: 4 mg Pantoprazole Sodium (Protonix Iv*) 40 mg IV BID [facility] Last Admin: 06/08/18 08:44 Dose: Not Given Pharmacy Profile Note (Fentanyl Patch Check Q Shift) 1 note FOLLOW UP 0700, 1900 [facility] Last Admin: 06/08/18 06:05 Dose: 1 note Pharmacy Profile Note (Lidocaine Patch Remove*) 1 note PATCH OFF 2100 PRN PRN Reason: REMOVE PATCH IF USED Sucralfate (Sucralfate Susp) 1 gm PO 0630,1100,1600,2100 [facility] Last Admin: 06/08/18 06:05 Dose: 1 gm Zolpidem Tartrate (Ambien Tab*) 5 mg PO BEDTIME PRN PRN Reason: INSOMNIA Vital Signs: Temp Pulse Resp BP Pulse Ox 98.3 F 66 18 105/49 95 06/08/18 07:18 06/08/18 07:18 06/08/18 09:58 06/08/18 07:18 06/08/18 07:18 Exam: Gen: 58 yo female in NAD, appears fatigued HEENT: MMM CV: RRR, no m/r/g Resp: CTA, no w/c/r Abd: soft, epigastric TTP Ext: no edema Assessment: [58 yo female with metastatic endometrial CA admitted with intractable pain and poor po intake secondary to dysphagia from external compression of the distal esophageal with associated ulceration.] Plan: [1. Intractable pain - increased fentanyl patch to 50 mcg 06/07 - cont current dose for today, can increase further tomorrow - cont IV dilaudid to 2mg q 2h prn - start roxanol 20 mg po q 2h prn with goal to transition primarily using the morphine over IV dilaudid - cont PPI/carafate to help treat pain associated with ulceration 2. Metastatic endometrial CA - started palliative RT to the distal esophagus 06/07 with 5 fractions planned through 06/13 - re-evaluate plans for systemic therapy following this hospitalization Dispo: No PT/OT needs identified and patient would like to return home following this hospitalization. Anticipate she will need to remain inpatient through the completion of her radiation treatments for optimal pain control
[2018-06-08] MEDS: Morphine ORAL CONCENTRATE* 5 MG/0.25 ML ORAL.SYRIN PO PRN (10:47)
[2018-06-08] MEDS: Enoxaparin(*) 40 MG/0.4 ML SYR SUBCUT SCH (14:31)
[2018-06-08] MEDS: LORazepam INJ* 2 MG/ML 1 ML VIAL IV PUSH PRN (22:41)
[2018-06-09] MEDS: HYDROmorphone INJ1* 1 MG/ML SYRINGE IV SLOW PU PRN ×9 (03:03→23:44)
[2018-06-09] MEDS: Sucralfate SUSP 1 GM/10 ml 10 ML UDC PO SCH ×4 (06:04→21:25)
[2018-06-09 06:34] LABS: ABS Basophils 0 10^3/ul (0-0.2); ABS Eosinophils 0 10^3/ul (0-0.6); ABS Lymphocytes 0.6 10^3/ul (1.0-4.8); ABS Monocytes 0.3 10^3/ul (0-0.8); ABS Neutrophils 3.7 10^3/ul (1.5-7.7); ABS Nucleated RBC 0 10^3/ul; Hematocrit 29 % (33-41); Hemoglobin 10.2 g/dL (12.0-16.0); Lymphocyte % 12.8 %; Mean Corpuscular HGB Conc 35 g/dL (31-36); Mean Corpuscular Hemoglobin 31 pg (27-31); Mean Corpuscular Volume 89 fL (80-97); Mean Platelet Volume 7.7 fL (7.4-10.4); Nucleated Red Blood Cells % 0; Platelet Count 160 10^3/uL (150-450); Red Blood Count 3.28 10^6 /uL (3.70-4.87); Red Cell Distribution Width 12 % (10.5-15); White Blood Count 4.7 10^3/uL (3.5-10.8)
[2018-06-09 06:43] LABS: BUN/Creatinine Ratio 10.9 (8-20); Calcium 8.7 mg/dL (8.6-10.3); EGFR African American 137.4 (>60); EGFR Non-African American 113.5 (>60); Magnesium 1.5 mg/dL (1.9-2.7); Potassium 3.9 mmol/L (3.5-5.0)
[2018-06-09] MEDS: fentaNYL Patch Check Q Shift 1 NOTE FOLLOW UP SCH ×2 (07:17→18:43)
[2018-06-09] MEDS: Pantoprazole IV* 40 MG IV SCH ×2 (09:26→20:05)
[2018-06-09] MEDS: metFORMIN* 500 MG TAB PO SCH ×2 (09:26→20:06)
[2018-06-09] MEDS ORDERED: fentaNYL PATCH 75 MCG/HR* 75 MCG TRANSDERM SCH (11:00)
[2018-06-09] MEDS: Senna TAB PO PRN (12:01)
[2018-06-09] MEDS: NS 0.9% 1000 ML** 1,000 ML IV SCH (12:43)
[2018-06-09] MEDS: LORazepam INJ* 2 MG/ML 1 ML VIAL IV PUSH PRN (13:14)
[2018-06-09] MEDS: Lidocaine PATCH 5%* 1 PATCH TRANSDERM PRN (13:18)
[2018-06-09] MEDS: Enoxaparin(*) 40 MG/0.4 ML SYR SUBCUT SCH (15:08)
[2018-06-09] MEDS: Ondansetron ODT TAB* 4 MG SL PRN (16:24)
[2018-06-10] MEDS: HYDROmorphone INJ1* 1 MG/ML SYRINGE IV SLOW PU PRN ×6 (03:49→21:50)
[2018-06-10] MEDS: fentaNYL Patch Check Q Shift 1 NOTE FOLLOW UP SCH ×2 (06:47→18:22)
[2018-06-10] MEDS: Sucralfate SUSP 1 GM/10 ml 10 ML UDC PO SCH ×4 (06:49→21:46)
--- NOTE | 2018-06-10 07:17 | UC ---
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 Dr. Funk is made aware of patient. Patient was seen yesterday and given a fentanyl patch to the upper left shoulder and at home pain medications which have not improved her symptoms. She was sent here for admission for further pain control. Denies any fevers, sweats, chills. Endorses diffuse pain. - History Of Current Complaint Chief Complaint: EDGeneral Stated Complaint: FULL BODY PAIN PER EMS Time Seen by Provider: 06/06/18 14:13 Hx Obtained From: Patient Hx Last Menstrual Period: post menopause ?: No Onset/Duration: Worse Since - yesterday Severity Initially: Severe Severity Currently: Severe Pain Intensity: 10 Pain Scale Used: 0-10 Numeric Aggravating Factor(s): Nothing Alleviating Factor(s): Nothing Associated Signs And Symptoms: Positive: Dizziness, Headache, Weakness - Risk Factors Cardiac Risk Factors: Negative CVA Risk Factor: Negative - Allergies/Home Medications Allergies/Adverse Reactions: Allergies Allergy/AdvReac Type Severity Reaction Status Date / Time bee pollen Allergy Hives Verified 06/06/18 14:35 monosodium glutamate Allergy Headache Verified 06/06/18 14:35 Home Medications: Home Medications Famotidine TAB* [Pepcid 20 MG TAB*] 20 mg PO DAILY 06/06/18 [History Confirmed 06/06/18] Glucosamine Sulfate 500 mg PO DAILY 06/06/18 [History Confirmed 06/06/18] HYDROcodone/ACETAMIN 5-325 MG* [[place] 5-325 TAB*] 1 tab PO QID PRN 06/06/18 [ History Confirmed 06/06/18] Magnesium Oxide TAB* [MagOx 400 TAB*] 800 mg PO BID 06/06/18 [History Confirmed 06/06/18] Multivitamins/Minerals TAB* [Theragran/minerals TAB*] 1 tab PO DAILY 06/06/18 [ History Confirmed 06/06/18] Omeprazole CAP (NF) [Prilosec CAP* 20 MG] 20 mg PO BID 06/06/18 [History Confirmed 06/06/18] metFORMIN* [Glucophage 1000 MG TAB *] 1,000 mg PO BID 06/06/18 [History Confirmed 06/06/18] oxyCODONE TAB* [Roxycodone TAB 5 mg*] 5 - 10 mg PO Q6H PRN 06/06/18 [History Confirmed 06/06/18] oxyCODONE/Acetamin 5/325 MG* [Percocet 5/325 TAB*] 1 - 2 tab PO Q4HR PRN MDD 4 06/06/18 [History Confirmed 06/06/18] PMH/Surg Hx/FS Hx/Imm Hx Previously Healthy: No - endometrial CA - Surgical History Surgical History: Yes Surgery Procedure, Year, and Place: APPENDECTOMY. ORAL SURGERY. SINUS SURGERY. CARPAL TUNNEL RELEASE. HYSTERECTOMY. CYST REMOVAL 2017 - Family History Known Family History: Positive: Non-Contributory Negative: Cardiac Disease, Hypertension, Diabetes - Social History Occupation: Unemployed, Disabled Lives: With Family Alcohol Use: None Alcohol Amount: since CA dx Substance Use Type: None Smoking Status (MU): Never Smoked Tobacco Have You Smoked in the Last Year: No Household Exposure Type: Cigarettes - Immunization History Most Recent Influenza Vaccination: declined Most Recent Tetanus Shot: current Most Recent Pneumonia Vaccination: declined Review of Systems All Other Systems Reviewed And Are Negative: Yes Constitutional: Positive: Fatigue. Negative: Fever, Chills Skin: Positive: Negative Eyes: Positive: Negative ENT: Positive: Negative Respiratory: Negative: Shortness Of Breath, Cough Cardiovascular: Positive: Negative Gastrointestinal: Positive: Negative Motor: Positive: Negative Neurovascular: Positive: Negative Musculoskeletal: Positive: Arthralgia Neurological: Positive: Headache Is Patient Immunocompromised?: Yes Physical Exam Triage Information Reviewed: Yes Appearance: Ill-Appearing, Pain Distress, Thin Vital Signs: Initial Vital Signs Pulse 81 06/06/18 14:19 BP 127/80 06/06/18 14:19 Pulse Ox 87 06/06/18 14:19 Vital Signs Reviewed: Yes Eye Exam: Normal Neck exam: Normal Respiratory: Positive: Chest non-tender, Lungs clear Cardiovascular: Positive: RRR, No Murmur Bowel Sounds: Positive: Present Musculoskeletal: Positive: Other: - weakness -diffuse Neurological: Positive: Alert Psychological: Positive: Normal Response To Family Skin Exam: Normal AMS Course/Dx - Course Course Of Treatment: During the course of treatment, the patient's evaluated for pain not well controlled with at home Fentanyl. Dr. Funk made aware that patient is here. On arrival, discussed immediately with Lora Gloria, TECHNICAL SERVICES ASSISTANT oncology who agrees to admit patient for uncontrolled pain. Dilaudid given in the ED. - Differential Dx/Clinical Impression Differential Diagnosis/HQI/PQRI: Other - uncontrolled pain Provider Diagnosis: Inadequate pain control Discharge - Sign-Out/Discharge Documenting (check all that apply): Patient Departure All imaging exams completed and their final reports reviewed: No Studies Patient Received Moderate/Deep Sedation with Procedure: No - Discharge Plan Condition: Fair Disposition: ADMITTED TO [facility] - Billing Disposition and Condition Condition: FAIR Disposition: Admitted to [facility]
[2018-06-10] MEDS: metFORMIN* 500 MG TAB PO SCH ×2 (08:40→20:22)
[2018-06-10] MEDS: Pantoprazole IV* 40 MG IV SCH ×2 (08:40→20:22)
[2018-06-10] MEDS: NS 0.9% 1000 ML** 1,000 ML IV SCH ×2 (08:41→18:39)
--- NOTE | 2018-06-10 09:01 | PN ---
Progress Note - Progress Note Date of Service: 06/10/18 SOAP: Subjective: []Overall doing better Pain improved on increased Fentanyl to 75 mcg, still using dialudid Has MELO and feels that vision decreased on L side. Eating better, working with home paraprofessional. c/o bad dreams PT evaluation with recommendation for PT but she refused last 2 days 2nd to fatigue. Docusate Sodium (Colace Cap*) 100 mg PO BID PRN PRN Reason: CONSTIPATION Enoxaparin Sodium (Lovenox(*)) 40 mg SUBCUT Q24H [facility] Last Admin: 06/09/18 15:08 Dose: 40 mg Fentanyl (Duragesic Patch 75 Mcg/Hr*) 75 mcg TRANSDERM Q72H [facility] Last Admin: 06/09/18 12:01 Dose: 75 mcg Heparin Sodium (Porcine) (Heparin Flush Port (Ivad)) 5 ml FLUSH DAILY [facility]; Protocol Last Admin: 06/10/18 08:37 Dose: Not Given Hydromorphone HCl (Dilaudid Inj1s*) 2 mg IV SLOW PU Q2H PRN PRN Reason: PAIN Last Admin: 06/10/18 06:57 Dose: 2 mg Sodium Chloride (Ns 0.9% 1000 Ml) 1,000 mls @ 50 mls/hr IV PER RATE [facility] Last Admin: 06/10/18 08:41 Dose: 50 mls/hr Lidocaine (Lidoderm 5% Patch*) 1 patch TRANSDERM DAILY PRN PRN Reason: PAIN IN LOWER BACK Last Admin: 06/09/18 13:18 Dose: 1 patch Lorazepam (Ativan Inj*) 0.5 mg IV PUSH Q4H PRN PRN Reason: Anxiety/sleep/nausea Last Admin: 06/09/18 13:14 Dose: 0.5 mg Metformin HCl (Glucophage*) 500 mg PO BID [facility] Last Admin: 06/10/18 08:40 Dose: 500 mg Miscellaneous (Ativan Pyxis Zapata) 1 ea N/A .ATIVAN IV ZAPATA PRN PRN Reason: PYXIS ZAPATA Morphine Sulfate (Morphine Oral Concentrate*) 20 mg PO Q2H PRN PRN Reason: PAIN Last Admin: 06/08/18 10:47 Dose: 20 mg Ondansetron HCl (Zofran Odt Tab*) 4 mg SL Q6H PRN PRN Reason: NAUSEA/VOMITING Last Admin: 06/09/18 16:24 Dose: 4 mg Pantoprazole Sodium (Protonix Iv*) 40 mg IV BID [facility] Last Admin: 06/10/18 08:40 Dose: 40 mg Pharmacy Profile Note (Fentanyl Patch Check Q Shift) 1 note FOLLOW UP 0700, 1900 [facility] Last Admin: 06/10/18 06:47 Dose: 1 note Pharmacy Profile Note (Lidocaine Patch Remove*) 1 note PATCH OFF 2100 PRN PRN Reason: REMOVE PATCH IF USED Last Admin: 06/09/18 21:35 Dose: 1 note Senna (Senokot Tab*) 1 tab PO DAILY PRN PRN Reason: CONSTIPATION Last Admin: 06/09/18 12:01 Dose: 1 tab Sucralfate (Sucralfate Susp) 1 gm PO 0630,1100,1600,2100 [facility] Last Admin: 06/10/18 06:49 Dose: 1 gm Zolpidem Tartrate (Ambien Tab*) 5 mg PO BEDTIME PRN PRN Reason: INSOMNIA Objective: [] Vital Signs Temp Pulse Resp BP Pulse Ox 99.1 F 91 16 105/65 92 06/10/18 07:33 06/10/18 07:33 06/10/18 08:00 06/10/18 07:33 06/10/18 07:33 Exam: Gen: 58 yo female in NAD, appears fatigued HEENT: MMM CV: RRR, no m/r/g Resp: CTA, no w/c/r Abd: soft, epigastric TTP Ext: no edema Neuro: visual perry intact, she is coherent but difficulty with focus. Assessment: [58 yo female with metastatic endometrial CA admitted with intractable pain and poor po intake secondary to dysphagia from external compression of the distal esophageal with associated ulceration.] Plan: [1. Pain. Improved. - increased fentanyl patch to 75 mcg, continue current dose. - Hold dilaudid unless pain after roxanol - roxanol 20 mg po q 2h prn pain - cont PPI/carafate to help treat pain associated with ulceration 2. Metastatic endometrial CA - started palliative RT to the distal esophagus 06/07 with 5 fractions planned through 06/13 - she wants systemic therapy, will see if can be arranged. 3. Will continue PT as she tolerated, plan discharge after XRT on Tuesday. 4. Replete Mg IV, follow daily.
[2018-06-10] MEDS: Ondansetron ODT TAB* 4 MG SL PRN (09:33)
[2018-06-10] MEDS: Morphine ORAL CONCENTRATE* 5 MG/0.25 ML ORAL.SYRIN PO PRN (09:33)
[2018-06-10] MEDS: Enoxaparin(*) 40 MG/0.4 ML SYR SUBCUT SCH (15:36)
[2018-06-10 15:53] LABS: Albumin 3.6 g/dL (3.2-5.2); Albumin/Globulin Ratio 1.2 (1-3); BUN/Creatinine Ratio 8.6 (8-20); Calcium 8.8 mg/dL (8.6-10.3); EGFR African American 129.2 (>60); EGFR Non-African American 106.8 (>60); Globulin 3.1 g/dL (2-4); Magnesium 1.3 mg/dL (1.9-2.7); Potassium 3.4 mmol/L (3.5-5.0); Total Bilirubin 0.3 mg/dL (0.2-1.0); Total Protein 6.7 g/dL (6.4-8.9)
[2018-06-10] MEDS ORDERED: Alteplase (CATHFLO)* 2 MG VIAL ONE (16:00)
[2018-06-10] MEDS ORDERED: Magnesium Sulfate 4 GM IV IVPB ONE (19:00)
[2018-06-10] MEDS: LORazepam INJ* 2 MG/ML 1 ML VIAL IV PUSH PRN (23:06)
[2018-06-11] MEDS: HYDROmorphone INJ1* 1 MG/ML SYRINGE IV SLOW PU PRN ×8 (01:07→21:12)
[2018-06-11] MEDS: NS 0.9% 1000 ML** 1,000 ML IV SCH ×2 (01:10→09:19)
[2018-06-11] MEDS: Sucralfate SUSP 1 GM/10 ml 10 ML UDC PO SCH ×4 (05:54→21:59)
[2018-06-11] MEDS: fentaNYL Patch Check Q Shift 1 NOTE FOLLOW UP SCH ×2 (07:17→19:06)
[2018-06-11] MEDS: Pantoprazole IV* 40 MG IV SCH ×2 (09:14→21:14)
[2018-06-11] MEDS: metFORMIN* 500 MG TAB PO SCH ×2 (09:14→21:14)
[2018-06-11] MEDS: Senna TAB PO PRN (11:51)
[2018-06-11] MEDS: Docusate CAP* 100 MG PO PRN ×2 (13:00→21:14)
[2018-06-11] MEDS: Enoxaparin(*) 40 MG/0.4 ML SYR SUBCUT SCH (15:40)
[2018-06-11] MEDS ORDERED: Magnesium Sulfate 2 GM IV* 2 GM/50 ML BAG IVPB ONE (16:33)
--- NOTE | 2018-06-11 16:50 | PN ---
Subjective Date of Service: 06/11/18 Interval History: Patient has now new complaints. She is afraid to try oral morphine, worried she will begin vomiting. Managing pain w/ IV dilaudid and fentanyl patches. Has been able to eat small boluses of soft solids, washed down with water. Family History: Unchanged from Admission Social History: Unchanged from Admission Past Medical History: Unchanged from Admission Objective Active Medications: Docusate Sodium (Colace Cap*) 100 mg PO BID PRN PRN Reason: CONSTIPATION Last Admin: 06/11/18 13:00 Dose: 100 mg Enoxaparin Sodium (Lovenox(*)) 40 mg SUBCUT Q24H [facility] Last Admin: 06/11/18 15:40 Dose: 40 mg Fentanyl (Duragesic Patch 75 Mcg/Hr*) 75 mcg TRANSDERM Q72H [facility] Last Admin: 06/09/18 12:01 Dose: 75 mcg Heparin Sodium (Porcine) (Heparin Flush Port (Ivad)) 5 ml FLUSH DAILY [facility]; Protocol Last Admin: 06/11/18 07:14 Dose: Not Given Hydromorphone HCl (Dilaudid Inj1s*) 2 mg IV SLOW PU Q2H PRN PRN Reason: PAIN Last Admin: 06/11/18 15:39 Dose: 2 mg Sodium Chloride (Ns 0.9% 1000 Ml) 1,000 mls @ 50 mls/hr IV PER RATE [facility] Last Admin: 06/10/18 08:41 Dose: 50 mls/hr Sodium Chloride (Ns 0.9% 1000 Ml) 1,000 mls @ 125 mls/hr IV PER RATE [facility] Last Admin: 06/11/18 09:19 Dose: 125 mls/hr Magnesium Sulfate (Magnesium Sulfate 2 Gm Iv*) 2 gm in 50 mls @ 50 mls/hr IVPB ONCE ONE Stop: 06/11/18 17:32 Lidocaine (Lidoderm 5% Patch*) 1 patch TRANSDERM DAILY PRN PRN Reason: PAIN IN LOWER BACK Last Admin: 06/09/18 13:18 Dose: 1 patch Lorazepam (Ativan Inj*) 0.5 mg IV PUSH Q4H PRN PRN Reason: Anxiety/sleep/nausea Last Admin: 06/10/18 23:06 Dose: 0.5 mg Metformin HCl (Glucophage*) 500 mg PO BID [facility] Last Admin: 06/11/18 09:14 Dose: 500 mg Miscellaneous (Ativan Pyxis Zapata) 1 ea N/A .ATIVAN IV ZAPATA PRN PRN Reason: PYXIS ZAPATA Morphine Sulfate (Morphine Oral Concentrate*) 20 mg PO Q2H PRN PRN Reason: PAIN Last Admin: 06/10/18 09:33 Dose: 20 mg Ondansetron HCl (Zofran Odt Tab*) 4 mg SL Q6H PRN PRN Reason: NAUSEA/VOMITING Last Admin: 06/09/18 16:24 Dose: 4 mg Pantoprazole Sodium (Protonix Iv*) 40 mg IV BID [facility] Last Admin: 06/11/18 09:14 Dose: 40 mg Pharmacy Profile Note (Fentanyl Patch Check Q Shift) 1 note FOLLOW UP 0700, 1900 [facility] Last Admin: 06/11/18 07:17 Dose: 1 note Pharmacy Profile Note (Lidocaine Patch Remove*) 1 note PATCH OFF 2100 PRN PRN Reason: REMOVE PATCH IF USED Last Admin: 06/09/18 21:35 Dose: 1 note Senna (Senokot Tab*) 1 tab PO DAILY PRN PRN Reason: CONSTIPATION Last Admin: 06/11/18 11:51 Dose: 1 tab Sucralfate (Sucralfate Susp) 1 gm PO 0630,1100,1600,2100 [facility] Last Admin: 06/11/18 15:59 Dose: 1 gm Zolpidem Tartrate (Ambien Tab*) 5 mg PO BEDTIME PRN PRN Reason: INSOMNIA Vital Signs - 8 hr 06/11/18 06/11/18 06/11/18 09:13 10:46 11:10 Temperature 36.9 C Pulse Rate 72 Respiratory 18 16 18 Rate Blood Pressure 97/43 (mmHg) O2 Sat by Pulse 96 Oximetry Oxygen Devices in Use Now: None Appearance: chronically ill appearing, sleeping, easily arouses to voice Eyes: No Scleral Icterus Ears/Nose/Mouth/Throat: NL Teeth, Lips, Gums Neck: NL Appearance and Movements; NL JVP Respiratory: Symmetrical Chest Expansion and Respiratory Effort, Clear to Auscultation Cardiovascular: NL Sounds; No Murmurs; No JVD, RRR Abdominal: - - tender throughout, +BS, no masses Extremities: No Edema Neurological: Alert and Oriented x 3 Lines/Tubes/Other Access: Clean, Dry and Intact Other Access - Port LT subclav Nutrition: Taking PO's - Nutrition: Malnutrition Diagnosis/Plan Malnutrition Assessment by Registered Dietitian: Malnutrition Assessment Clinical Characteristics Acute,Severe Malnutrition Assessment: - 9.0% wt loss x past 3-4 weeks Criteria - < 50% estimated energy expenditure > 5 days Malnutrition Assessment: - Will trial glucerna shake today w/ lunch (220 Interventions kcals, 20 grams protein) - Mechanical ground textures to ease swallowing per pt request Malnutrition Assessment: Goals 1. Intake will improve to promote repletion of lean body mass, maintain hydration, and prevent additional wt loss. 2. Pt will tolerate least restrictive diet textures w/o difficulty swallowing. Result Diagrams: 06/09/18 06:05 06/10/18 15:26 Assess/Plan/Problems-Billing Assessment: 58 year old woman with metastatic ovarian cancer, extrinsic esophageal compression and ulcer - Patient Problems (1) Esophageal obstruction Current Visit: Yes Status: Acute Priority: High Code(s): K22.2 - ESOPHAGEAL OBSTRUCTION SNOMED Code(s): 547987136 Comment: -partial, patient is tolerating some food/liquid -Will have dose 4 of 5 of palliative radiation treatment tomorrow -continue IV pantoprazole (2) Primary cancer of ovary with widespread metastatic disease Current Visit: Yes Status: Acute Priority: Medium Code(s): C56.9 - MALIGNANT NEOPLASM OF UNSPECIFIED OVARY; C80.0 - DISSEMINATED MALIGNANT NEOPLASM , UNSPECIFIED SNOMED Code(s): 972041090 Comment: -Management per Dr. Funk -Continue pain control, palliation (3) Hypomagnesemia Current Visit: Yes Status: Acute Priority: Medium Code(s): E83.42 - HYPOMAGNESEMIA SNOMED Code(s): 814779722 Comment: -Repleted IV yesterday, will repeat again toda -recheck Mg in AM (4) DVT prophylaxis Current Visit: Yes Status: Acute Priority: Medium Code(s): ZZK6980 - SNOMED Code(s): 085799187 Comment: -SC lovenox Status and Disposition: inpatient
[2018-06-12] MEDS: HYDROmorphone INJ1* 1 MG/ML SYRINGE IV SLOW PU PRN ×6 (00:52→19:31)
[2018-06-12] MEDS: NS 0.9% 1000 ML** 1,000 ML IV SCH ×2 (03:15→17:20)
[2018-06-12] MEDS: Ondansetron ODT TAB* 4 MG SL PRN ×2 (03:18→19:02)
[2018-06-12] MEDS: Morphine ORAL CONCENTRATE* 5 MG/0.25 ML ORAL.SYRIN PO PRN ×3 (03:19→19:02)
[2018-06-12] MEDS: Lidocaine PATCH 5%* 1 PATCH TRANSDERM PRN (05:40)
[2018-06-12] MEDS: Sucralfate SUSP 1 GM/10 ml 10 ML UDC PO SCH ×4 (05:44→19:31)
[2018-06-12 06:09] LABS: ABS Basophils 0 10^3/ul (0-0.2); ABS Eosinophils 0.1 10^3/ul (0-0.6); ABS Lymphocytes 0.4 10^3/ul (1.0-4.8); ABS Monocytes 0.3 10^3/ul (0-0.8); ABS Nucleated RBC 0 10^3/ul; Eosinophil % 1.9 %; Hematocrit 28 % (33-41); Hemoglobin 9.7 g/dL (12.0-16.0); Lymphocyte % 9.6 %; Mean Corpuscular HGB Conc 35 g/dL (31-36); Mean Corpuscular Hemoglobin 31 pg (27-31); Mean Corpuscular Volume 89 fL (80-97); Mean Platelet Volume 7.5 fL (7.4-10.4); Nucleated Red Blood Cells % 0.1; Platelet Count 192 10^3/uL (150-450); Red Blood Count 3.13 10^6 /uL (3.70-4.87); Red Cell Distribution Width 12 % (10.5-15); White Blood Count 3.7 10^3/uL (3.5-10.8)
[2018-06-12 06:24] LABS: BUN/Creatinine Ratio 6.4 (8-20); Calcium 8.5 mg/dL (8.6-10.3); EGFR African American 164.7 (>60); EGFR Non-African American 136.1 (>60); Potassium 3.3 mmol/L (3.5-5.0)
[2018-06-12 06:38] LABS: Magnesium 1.5 mg/dL (1.9-2.7)
[2018-06-12] MEDS: fentaNYL Patch Check Q Shift 1 NOTE FOLLOW UP SCH ×2 (07:23→19:01)
[2018-06-12] MEDS ORDERED: fentaNYL PATCH 50 MCG/HR TRANSDERM SCH (09:38)
--- NOTE | 2018-06-12 09:46 | PN ---
Progress Note - Progress Note Date of Service: 06/12/18 SOAP: Subjective: []Pain was worse over the weekend, today is a little better. She has not had a BM is several days and has abdominal and back pain. Eating is a little better. Breathing is fine. She has SE of pain medication, feels disoriented. Docusate Sodium (Colace Cap*) 100 mg PO BID PRN PRN Reason: CONSTIPATION Last Admin: 06/11/18 21:14 Dose: 100 mg Enoxaparin Sodium (Lovenox(*)) 40 mg SUBCUT Q24H [facility] Last Admin: 06/11/18 15:40 Dose: 40 mg Fentanyl (Duragesic Patch 50 Mcg/Hr*) 100 mcg TRANSDERM Q72H [facility] Heparin Sodium (Porcine) (Heparin Flush Port (Ivad)) 5 ml FLUSH DAILY [facility]; Protocol Last Admin: 06/12/18 07:29 Dose: Not Given Hydromorphone HCl (Dilaudid Inj1s*) 2 mg IV SLOW PU Q2H PRN PRN Reason: PAIN Last Admin: 06/12/18 07:37 Dose: 2 mg Sodium Chloride (Ns 0.9% 1000 Ml) 1,000 mls @ 125 mls/hr IV PER RATE [facility] Last Admin: 06/12/18 03:15 Dose: 125 mls/hr Lactulose (Lactulose*) 30 ml PO TID [facility] Stop: 06/13/18 09:59 Lidocaine (Lidoderm 5% Patch*) 1 patch TRANSDERM DAILY PRN PRN Reason: PAIN IN LOWER BACK Last Admin: 06/12/18 05:40 Dose: 1 patch Lorazepam (Ativan Inj*) 0.5 mg IV PUSH Q4H PRN PRN Reason: Anxiety/sleep/nausea Last Admin: 06/10/18 23:06 Dose: 0.5 mg Metformin HCl (Glucophage*) 500 mg PO BID [facility] Last Admin: 06/11/18 21:14 Dose: 500 mg Miscellaneous (Ativan Pyxis Zapata) 1 ea N/A .ATIVAN IV ZAPATA PRN PRN Reason: PYXIS ZAPATA Morphine Sulfate (Morphine Oral Concentrate*) 20 mg PO Q2H PRN PRN Reason: PAIN Last Admin: 06/12/18 05:40 Dose: 20 mg Ondansetron HCl (Zofran Odt Tab*) 4 mg SL Q6H PRN PRN Reason: NAUSEA/VOMITING Last Admin: 06/12/18 03:18 Dose: 4 mg Pantoprazole Sodium (Protonix Iv*) 40 mg IV BID [facility] Last Admin: 06/11/18 21:14 Dose: 40 mg Pharmacy Profile Note (Fentanyl Patch Check Q Shift) 1 note FOLLOW UP 0700, 1900 [facility] Last Admin: 06/12/18 07:23 Dose: 1 note Pharmacy Profile Note (Lidocaine Patch Remove*) 1 note PATCH OFF 2100 PRN PRN Reason: REMOVE PATCH IF USED Last Admin: 06/09/18 21:35 Dose: 1 note Senna (Senokot Tab*) 1 tab PO DAILY PRN PRN Reason: CONSTIPATION Last Admin: 06/11/18 11:51 Dose: 1 tab Sucralfate (Sucralfate Susp) 1 gm PO 0630,1100,1600,2100 [facility] Last Admin: 06/12/18 05:44 Dose: Not Given Zolpidem Tartrate (Ambien Tab*) 5 mg PO BEDTIME PRN PRN Reason: INSOMNIA Objective: [] Vital Signs Temp Pulse Resp BP Pulse Ox 97.0 F 74 18 108/51 94 06/12/18 07:08 06/12/18 07:08 06/12/18 08:00 06/12/18 07:08 06/12/18 07:08 Gen: 58 yo female in NAD, appears fatigued HEENT: MMM CV: RRR, no m/r/g Resp: CTA, no w/c/r Abd: diffuse tenderness and distended, +BS, no rebound or guarding Ext: no edema Neuro: visual perry intact, she is coherent but difficulty with focus. Assessment: [58 yo female with metastatic endometrial CA admitted with intractable pain and poor po intake secondary to dysphagia from external compression of the distal esophageal with associated ulceration. Will complete radiation tomorrow. Oral intake has improved but she continues to have sever pain, developed hyonatremia when IVF decreased and has continued low magnesium. ] Plan: [1. Pain. Worse over weekend. I am not sure if from esophogeal lesion or constipation. May not be beneficial to continue to increase pain mediation. - increase fentanyl patch to 100 mcg - will use dialudid as primary PRN mediction. - roxanol 20 mg po q 2h prn still available - cont PPI/carafate to help treat pain associated with ulceration 2. Constipation. Need BM JEFFRY. Will need to clear stool to better delineate pain medication needs. - Lacutlose 30 mg tid x 1 day 2. Metastatic endometrial CA - started palliative RT to the distal esophagus 06/07 with 5 fractions planned through 06/13 - she wants systemic therapy, dependenton functional status and social barriers. 3. Will continue PT as she tolerated, plan discharge after XRT on Tuesday. 4. Replete Mg 4 G now, continue IVF
[2018-06-12] MEDS ORDERED: Magnesium Sulf 4 GM/100 ML IV* 4,000 MG/100 ML BAG IVPB ONE (09:47)
[2018-06-12] MEDS: Pantoprazole IV* 40 MG IV SCH ×2 (10:38→21:42)
[2018-06-12] MEDS: fentaNYL PATCHs 100 MCG/HR TRANSDERM SCH (10:38)
[2018-06-12] MEDS: metFORMIN* 500 MG TAB PO SCH ×2 (10:38→21:42)
[2018-06-12] MEDS: Enoxaparin(*) 40 MG/0.4 ML SYR SUBCUT SCH (17:22)
[2018-06-12] MEDS: HYDROmorphone INJ1* 1 MG/ML SYRINGE IV PRN (21:37)
[2018-06-13] MEDS: HYDROmorphone INJ1* 1 MG/ML SYRINGE IV PRN ×6 (01:41→20:38)
[2018-06-13] MEDS: NS 0.9% 1000 ML** 1,000 ML IV SCH ×2 (01:47→10:40)
[2018-06-13 05:31] LABS: Hematocrit 27 % (33-41); Hemoglobin 9.2 g/dL (12.0-16.0); Mean Corpuscular HGB Conc 34 g/dL (31-36); Mean Corpuscular Hemoglobin 31 pg (27-31); Mean Corpuscular Volume 90 fL (80-97); Mean Platelet Volume 7.6 fL (7.4-10.4); Platelet Count 199 10^3/uL (150-450); Red Cell Distribution Width 12 % (10.5-15); White Blood Count 3.2 10^3/uL (3.5-10.8)
[2018-06-13 05:49] LABS: Albumin/Globulin Ratio 1.1 (1-3); BUN/Creatinine Ratio 4.1 (8-20); Calcium 8.3 mg/dL (8.6-10.3); EGFR Non-African American 129.7 (>60); Globulin 2.7 g/dL (2-4); Magnesium 1.5 mg/dL (1.9-2.7); Potassium 3.1 mmol/L (3.5-5.0); Total Bilirubin 0.2 mg/dL (0.2-1.0); Total Protein 5.7 g/dL (6.4-8.9)
[2018-06-13] MEDS: Sucralfate SUSP 1 GM/10 ml 10 ML UDC PO SCH ×4 (05:49→20:43)
[2018-06-13] MEDS: Ondansetron INJ* 2 MG/ML VIAL IV PRN ×3 (07:35→20:32)
[2018-06-13] MEDS: fentaNYL Patch Check Q Shift 1 NOTE FOLLOW UP SCH ×2 (07:51→19:00)
[2018-06-13] MEDS: Pantoprazole IV* 40 MG IV SCH ×2 (08:21→20:40)
[2018-06-13] MEDS: metFORMIN* 500 MG TAB PO SCH ×2 (08:21→22:25)
[2018-06-13] MEDS ORDERED: Magnesium Sulf 4 GM/100 ML IV* 4,000 MG/100 ML BAG IVPB ONE (10:03)
[2018-06-13] MEDS: KCL 20 MEQ/100 ML IVPREMIX* 20 MEQ/100 ML BAG IV SCH ×2 (10:41→14:21)
[2018-06-13] MEDS: Enoxaparin(*) 40 MG/0.4 ML SYR SUBCUT SCH (14:21)
[2018-06-13] MEDS ORDERED: LORazepam INJ* 2 MG/ML 1 ML VIAL IV PUSH ONE (16:21)
[2018-06-13] MEDS ORDERED: Lorazepam PYXIS KEY PRN (16:21)
[2018-06-13] MEDS: Morphine ORAL CONCENTRATE* 5 MG/0.25 ML ORAL.SYRIN PO PRN ×2 (16:38→18:13)
[2018-06-14] MEDS: HYDROmorphone INJ1* 1 MG/ML SYRINGE IV PRN ×6 (00:02→23:45)
[2018-06-14] MEDS: Sucralfate SUSP 1 GM/10 ml 10 ML UDC PO SCH ×4 (05:54→20:15)
[2018-06-14] MEDS: Ondansetron INJ* 2 MG/ML VIAL IV PRN ×2 (06:16→10:10)
[2018-06-14 06:47] LABS: BUN/Creatinine Ratio 6.1 (8-20); Calcium 8.7 mg/dL (8.6-10.3); EGFR Non-African American 129.7 (>60); Magnesium 1.4 mg/dL (1.9-2.7); Potassium 3.6 mmol/L (3.5-5.0)
[2018-06-14] MEDS: fentaNYL Patch Check Q Shift 1 NOTE FOLLOW UP SCH ×2 (08:22→20:25)
[2018-06-14] MEDS: Pantoprazole IV* 40 MG IV SCH ×2 (10:06→20:10)
[2018-06-14] MEDS ORDERED: Scopolamine 1.5 mg* PATCH TRANSDERM SCH (11:00)
[2018-06-14] MEDS: Docusate CAP* 100 MG PO PRN (11:03)
[2018-06-14] MEDS: Senna TAB PO PRN (11:03)
[2018-06-14] MEDS: metFORMIN* 500 MG TAB PO SCH ×2 (11:03→21:44)
--- NOTE | 2018-06-14 11:04 | PN ---
Progress Note - Progress Note Date of Service: 06/14/18 SOAP: Subjective: []Feels terrible. Stabbing epigastric pain to the sternum and right ribs. Worse with eating, gets gags, and the feels nauseated. Will spit up. This am had a small amt. of oatmeal, tea, and half a banana. Carafate seems to help a little. Morphine made nausea much worse. IV dilaudid brings pain down from avg. 8/10 to 2/10. "But sometimes it doesn't last that long and other times it does." Left cheek below eye feels numb and thinks sometimes her cheek with droop. Left eye vision seems more blurry. - Refusing brain MRI r/t clasutrophobia. Last Monday 06/12. UO OK. Lives alone in [facility]. Has a car but is realistic about driving, "Not like this I can't." Feels her neighbor can help her if needed. Has a sister, Eryn, who lives in [place] and has been involved. Has a sister in [place] who is not involved per Coni. Understands her cancer has grown and is not curable. 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 Wants pain controlled and states a 5/10 is considered controlled for her. Medications: Docusate Sodium (Colace Cap*) 100 mg PO BID PRN PRN Reason: CONSTIPATION Last Admin: 06/11/18 21:14 Dose: 100 mg Enoxaparin Sodium (Lovenox(*)) 40 mg SUBCUT Q24H [facility] Last Admin: 06/13/18 14:21 Dose: 40 mg Fentanyl (Duragesic Patch 100 Mcg/Hr *) 100 mcg TRANSDERM Q72H [facility] Last Admin: 06/12/18 10:38 Dose: 100 mcg Hydromorphone HCl (Dilaudid Inj1s*) 3 mg IV Q2H PRN PRN Reason: PAIN Last Admin: 06/14/18 10:10 Dose: 3 mg Lidocaine (Lidoderm 5% Patch*) 1 patch TRANSDERM DAILY PRN PRN Reason: PAIN IN LOWER BACK Last Admin: 06/12/18 05:40 Dose: 1 patch Metformin HCl (Glucophage*) 500 mg PO BID [facility] Last Admin: 06/13/18 22:25 Dose: 500 mg Miscellaneous (Ativan Pyxis Zapata) 1 ea N/A .ATIVAN IV ZAPATA PRN PRN Reason: PYXIS ZAPATA Morphine Sulfate (Morphine Oral Concentrate*) 20 mg PO Q2H PRN PRN Reason: PAIN Last Admin: 06/13/18 18:13 Dose: 5 mg Ondansetron HCl (Zofran Odt Tab*) 4 mg SL Q6H PRN PRN Reason: NAUSEA/VOMITING Last Admin: 06/12/18 19:02 Dose: 4 mg Ondansetron HCl (Zofran Inj*) 4 mg IV Q4H PRN PRN Reason: NAUSEA/VOMITING Last Admin: 06/14/18 10:10 Dose: 4 mg Pantoprazole Sodium (Protonix Iv*) 40 mg IV BID [facility] Last Admin: 06/14/18 10:06 Dose: 40 mg Pharmacy Profile Note (Fentanyl Patch Check Q Shift) 1 note FOLLOW UP 0700, 1900 [facility] Last Admin: 06/14/18 08:22 Dose: 1 note Pharmacy Profile Note (Lidocaine Patch Remove*) 1 note PATCH OFF 2100 PRN PRN Reason: REMOVE PATCH IF USED Last Admin: 06/09/18 21:35 Dose: 1 note Scopolamine (Transderm-Scop 1.5 Mg Patch*) 1 patch TRANSDERM Q72H [facility] Senna (Senokot Tab*) 1 tab PO DAILY PRN PRN Reason: CONSTIPATION Last Admin: 06/11/18 11:51 Dose: 1 tab Sucralfate (Sucralfate Susp) 1 gm PO 0630,1100,1600,2100 [facility] Last Admin: 06/14/18 05:54 Dose: Not Given Zolpidem Tartrate (Ambien Tab*) 5 mg PO BEDTIME PRN PRN Reason: INSOMNIA Objective: [] Vital Signs Temp Pulse Resp BP Pulse Ox 99.0 F 81 17 118/55 95 06/14/18 07:47 06/14/18 07:47 06/14/18 10:10 06/14/18 07:47 06/14/18 07:47 A&Ox3, EOMI, PERRLA, SILVERIO with good strength equal bilat., no facial droop present HRR, S1S2 LS Clear bilat., resp. even and non-laobred +BS, abd. soft and tender without rebound tenderness or isolated spot tenderness No edema noted Pale with rashes Laboratory Results - last 24 hr 06/14/18 06:23 Sodium 137 Potassium 3.6 Chloride 101 Carbon Dioxide 29 Anion Gap 7 BUN 3 L Creatinine 0.49 L Est GFR ( Amer) 157.0 Est GFR (Non-Af Amer) 129.7 BUN/Creatinine Ratio 6.1 L Glucose 161 H Calcium 8.7 Magnesium 1.4 L Assessment: []58 yo female with metastatic endometrial CA admitted with intractable pain and poor po intake secondary to dysphagia from external compression of the distal esophageal with associated ulceration (seen on EGD 05/23 with biopsy confirming met) now s/p palliative RT completed yesterday (06/13) however with cont.'d pain control issues. We had a long discussion today regarding her current understanding of both her diagnosis, reasons for admission, and goals moving forward. She appears realistic regarding her advanced cancer, however I am not certain how clearly she can manged the coordination of her care moving forward. I spoke to her sister, Eryn Figueroa (c: [phone]) per Coni's request , and reviewed her current diagnosis, recent treatment, and expectations moving forward; her sister was suprised to hear her life expectancy was likely <5 years but seemed to understand the concept of treatment options (to note she lives in [place] and has offered that her sister move down there but Coni has not wanted to that). Plan: []1. Pain secondary to external esophageal compression and ulceration with radiation induced esophagitis - reviewed expectations for pain improvement over next 2 weeks post RT - reviewed need to cont. carafate and need for home pain plan - Pt. agreeable to try PO dilaudid as primary breakthrough - nausea likely r/t spasm and ulceration, start scopolamine patch 2. Metastatic endometrial CA - started palliative RT to the distal esophagus 06/07 with 5 fractions planned through 06/13 - she wants systemic therapy, dependenton functional status and social barriers. 3. Constipation: last BM 06/12 - enc. PO fluids, PRN senna qHS if no BM 4. Hypomagnesium: likely r/t poor PO intake - replace IV for now, check labs daily 5. Neuro symptoms: unclear how new these are, recommend MRI with benzodiazepam - she is current refusing this and therefore we will hold off for now in attempt to manage pain and can obtain as outpatient Hopeful for d/c tomorrow if pain controlled on PO meds and Fentanyl patch - will need VNS for home assessment and med assistance
[2018-06-14] MEDS: HYDROmorphone TAB* 4 MG PO PRN ×2 (13:48→18:10)
[2018-06-14] MEDS ORDERED: Magnesium Hydroxide LIQ* 30 ML UDC PO ONE (15:02)
[2018-06-14] MEDS: Enoxaparin(*) 40 MG/0.4 ML SYR SUBCUT SCH (15:42)
[2018-06-15] MEDS: HYDROmorphone INJ1* 1 MG/ML SYRINGE IV PRN ×4 (04:21→22:29)
[2018-06-15] MEDS: Senna TAB PO PRN (04:26)
[2018-06-15] MEDS: Sucralfate SUSP 1 GM/10 ml 10 ML UDC PO SCH ×4 (05:56→22:21)
[2018-06-15] MEDS: fentaNYL Patch Check Q Shift 1 NOTE FOLLOW UP SCH ×2 (06:47→19:19)
[2018-06-15] MEDS: fentaNYL PATCHs 100 MCG/HR TRANSDERM SCH ×2 (07:19→09:18)
[2018-06-15] MEDS: Pantoprazole IV* 40 MG IV SCH ×2 (07:25→22:21)
[2018-06-15] MEDS: metFORMIN* 500 MG TAB PO SCH ×2 (07:25→22:21)
[2018-06-15] MEDS: Enoxaparin(*) 40 MG/0.4 ML SYR SUBCUT SCH (13:33)
--- NOTE | 2018-06-15 18:27 | PN ---
Progress Note - Progress Note Date of Service: 06/15/18 SOAP: Subjective: []Refused visit from this AM stating she was on the phone with bank. Upon entry into the room she is rolling in bed with pain the sits up to talk and then rolls around again telling me she can't stand the pain. Pain is described as stabbing in the esophagus and stomach. Gets nauseated and thinks she got loopy from scopolamine patch stating she bent over and hit head. Has refused PO dilaudid today stating she would throw up. Nursing notes that she has declined PO pain meds but with IV pain meds gets loopy and then sleeps for three hours then complains of a MELO and nausea. Per nursing they were with her and she did not hit her head. Last BM 06/12. Medications: Docusate Sodium (Colace Cap*) 100 mg PO BID PRN PRN Reason: CONSTIPATION Last Admin: 06/14/18 11:03 Dose: 100 mg Enoxaparin Sodium (Lovenox(*)) 40 mg SUBCUT Q24H [facility] Last Admin: 06/15/18 13:33 Dose: 40 mg Fentanyl (Duragesic Patch 100 Mcg/Hr *) 100 mcg TRANSDERM Q72H [facility] Last Admin: 06/15/18 09:18 Dose: Not Given Heparin Sodium (Porcine) (Heparin Flush Port (Ivad)) 5 ml FLUSH DAILY [facility]; Protocol Last Admin: 06/15/18 13:33 Dose: 5 ml Hydromorphone HCl (Dilaudid Tab*) 4 mg PO Q4H PRN PRN Reason: PAIN Last Admin: 06/14/18 18:10 Dose: 4 mg Hydromorphone HCl (Dilaudid Inj1s*) 3 mg IV Q3H PRN PRN Reason: PAIN - SEVERE Last Admin: 06/15/18 11:48 Dose: 3 mg Lidocaine (Lidoderm 5% Patch*) 1 patch TRANSDERM DAILY PRN PRN Reason: PAIN IN LOWER BACK Last Admin: 06/12/18 05:40 Dose: 1 patch Metformin HCl (Glucophage*) 500 mg PO BID [facility] Last Admin: 06/15/18 07:25 Dose: 500 mg Miscellaneous (Ativan Pyxis Zapata) 1 ea N/A .ATIVAN IV ZAPATA PRN PRN Reason: PYXIS ZAPATA Ondansetron HCl (Zofran Odt Tab*) 4 mg SL Q6H PRN PRN Reason: NAUSEA/VOMITING Last Admin: 06/12/18 19:02 Dose: 4 mg Ondansetron HCl (Zofran Inj*) 4 mg IV Q4H PRN PRN Reason: NAUSEA/VOMITING Last Admin: 06/14/18 10:10 Dose: 4 mg Pantoprazole Sodium (Protonix Iv*) 40 mg IV BID [facility] Last Admin: 06/15/18 07:25 Dose: 40 mg Pharmacy Profile Note (Fentanyl Patch Check Q Shift) 1 note FOLLOW UP 0700, 1900 [facility] Last Admin: 06/15/18 06:47 Dose: 1 note Pharmacy Profile Note (Lidocaine Patch Remove*) 1 note PATCH OFF 2100 PRN PRN Reason: REMOVE PATCH IF USED Last Admin: 06/09/18 21:35 Dose: 1 note Scopolamine (Transderm-Scop 1.5 Mg Patch*) 1 patch TRANSDERM Q72H [facility] Last Admin: 06/14/18 11:02 Dose: 1 patch Senna (Senokot Tab*) 1 tab PO DAILY PRN PRN Reason: CONSTIPATION Last Admin: 06/15/18 04:26 Dose: 1 tab Sucralfate (Sucralfate Susp) 1 gm PO 0630,1100,1600,2100 [facility] Last Admin: 06/15/18 14:20 Dose: Not Given Objective: [] Vital Signs Temp Pulse Resp BP Pulse Ox 98.1 F 70 20 142/58 98 06/15/18 16:24 06/15/18 16:24 06/15/18 16:24 06/15/18 16:24 06/15/18 16:24 A&Ox3, neuro grossly non-focal HRR, S1S2 LS clear +BS, abd. soft and tender throughout Pale without rash No obvious deformities Assessment: []58 yo female with metastatic endometrial cancer with progression of mass around the distal esophagus causing extrinsic compression and some ulceration now s/p palliative RT. She was admitted over a week a go for uncontrolled pain and cont.'s to struggle with management. Her last dose of dilaudid today was just before noon and now at 6pm she awakens in severe pain, she has been refusing PO pain meds, and upon assessment adamantly tells me she needs toradol despite attempts at reviewing risks and limitations for d/c with use. Unfortunately I see limited options beyond waiting for healing to occur post RT as she has been unwilling to attempt many changes in concert with recommendations. Plan: []Toradol 15 mg IV x1 now, risk of GI bleed however pt. unwilling to discuss other options No further escalation of narcotics, suspect this will not be beneficial D/C scopolamine patch d/t pt. c/o of 'loopiness' Cont. carafate and antacids
[2018-06-15] MEDS ORDERED: Ketorolac INJ* 15 MG/ML 1 ML VIAL IV PUSH ONE (18:28)
[2018-06-15] MEDS: Ondansetron INJ* 2 MG/ML VIAL IV PRN (19:39)
[2018-06-15] MEDS: Lidocaine PATCH 5%* 1 PATCH TRANSDERM PRN (19:39)
[2018-06-15] MEDS: HYDROmorphone TAB* 4 MG PO PRN (22:20)
[2018-06-16] MEDS: HYDROmorphone TAB* 4 MG PO PRN ×2 (02:51→13:49)
[2018-06-16] MEDS: Sucralfate SUSP 1 GM/10 ml 10 ML UDC PO SCH ×2 (05:30→11:30)
[2018-06-16] MEDS: HYDROmorphone INJ1* 1 MG/ML SYRINGE IV PRN ×2 (05:31→08:38)
[2018-06-16] MEDS: Ondansetron INJ* 2 MG/ML VIAL IV PRN (05:31)
[2018-06-16 06:50] LABS: ABS Eosinophils 0.1 10^3/ul (0-0.6); ABS Lymphocytes 0.4 10^3/ul (1.0-4.8); ABS Monocytes 0.3 10^3/ul (0-0.8); ABS Neutrophils 2.8 10^3/ul (1.5-7.7); Eosinophil % 1.6 %; Hematocrit 30 % (35-47); Lymphocyte % 11.7 %; Mean Corpuscular HGB Conc 34 g/dL (31-36); Mean Corpuscular Hemoglobin 30 pg (27-31); Mean Corpuscular Volume 88 fL (80-97); Nucleated Red Blood Cells % 0.1; Platelet Count 212 10^3/uL (150-450); Red Blood Count 3.37 10^6 /uL (3.70-4.87); Red Cell Distribution Width 12 % (10.5-15); White Blood Count 3.6 10^3/uL (3.5-10.8)
[2018-06-16 07:12] LABS: Albumin 3.4 g/dL (3.2-5.2); Albumin/Globulin Ratio 1.1 (1-3); BUN/Creatinine Ratio 15.3 (8-20); Calcium 8.9 mg/dL (8.6-10.3); EGFR African American 126.7 (>60); EGFR Non-African American 104.7 (>60); Potassium 3.5 mmol/L (3.5-5.0); Total Bilirubin 0.3 mg/dL (0.2-1.0); Total Protein 6.4 g/dL (6.4-8.9)
[2018-06-16] MEDS: fentaNYL Patch Check Q Shift 1 NOTE FOLLOW UP SCH (07:13)
[2018-06-16 07:36] VITALS: BP 109/54
[2018-06-16] MEDS: Docusate CAP* 100 MG PO PRN (08:30)
[2018-06-16] MEDS: metFORMIN* 500 MG TAB PO SCH (08:31)
[2018-06-16] MEDS: Pantoprazole IV* 40 MG IV SCH (08:31)
[2018-06-16] MEDS ORDERED: fentaNYL PATCHs 100 MCG/HR TRANSDERM ONE (12:30)
--- NOTE | 2018-06-17 01:33 | DS ---
CC: Dr. Funk * DISCHARGE SUMMARY: DATE OF ADMISSION: 06/06/18 DATE OF DISCHARGE: 06/16/18 PRIMARY ONCOLOGIST: Dr. Elvis Funk. CONSULTING RADIATION ONCOLOGIST: Dr. Gabriel Granados. ATTENDING PHYSICIAN: Dr. Terry Bautista.* (DICTATED BY DORI TOVAR) DISCHARGING PROVIDER: DORI Tovar PRIMARY DISCHARGE DIAGNOSES: 1. Intractable pain secondary to metastatic endometrial cancer, now status post palliative radiation to mediastinal mass. 2. Visual changes - requires further followup, we were unable to accomplish an MRI during this hospitalization. 3. Multiple psychosocial confounders. DISCHARGE MEDICATIONS: 1. Vitamin B12 1000 mcg p.o. daily. 2. Glucosamine 500 mg p.o. daily. 3. Magnesium oxide 800 mg p.o. twice daily. 4. Metformin 1000 mg p.o. twice daily. 5. Multivitamin 1 tablet p.o. daily. 6. Fentanyl patch 100 mcg transdermal applied every 72 hours. 7. Dilaudid 4 mg p.o. q.4 hours as needed for pain. 8. Toradol 10 mg p.o. daily as needed for pain. 9. Protonix 40 mg daily. 10. Carafate 1 g p.o. with meals and before bed. HOSPITAL IMAGING: CT chest, abdomen, and pelvis from 05/10/18 demonstrates increased mucosal thickening at the aortic esophagus below the level of the cornelius concerning for possible esophageal neoplasm, significantly enlarged new pulmonary nodules consistent with metastatic disease, and a 1.2 cm short axis subcarinal lymph node which is new, and subcentimeter short axis bilateral hilar lymph nodes that appear increased in size. Within the right paracolic gutter, there is a 2.3 x 1.9 cm soft tissue density mass, which is increased from its previous size of 1.4 x 1.3 consistent with a metastatic implant, a new presumed metastatic retroperitoneal lymphadenopathy. HOSPITAL COURSE: This is a 58-year-old female with metastatic endometrial cancer who has multiple psychosocial confounders that has interfered with her receiving treatment on a consistent basis for her metastatic disease. She recently reported progressive dysphagia and underwent restaging CT in the end of April, which demonstrated mucosal thickening at the distal esophagus for which she underwent subsequent upper endoscopy, which demonstrated what appeared to be external compression of the esophagus with associated ulceration , which initiated plans for palliative radiation to the region. The patient had been seen on a few occasions leading up to her hospitalization regarding pain management and contacted the oncology office in tears and reporting intractable pain. She received instructions to proceed to the emergency department at that time. The patient initiated palliative radiation to the region of the distal esophagus, completing 5 fractions on Tuesday, . During the patient's hospitalization, her pain remained very difficult to control requiring multiple IV narcotics and seemed to be exacerbated by significant amount of anxiety. On the day of discharge, the patient reports that her pain is manageable and she is able to complete all of her ADLs and able to tolerate soft foods without discomfort. DISPOSITION AND FOLLOWUP PLAN: The patient is being discharged to home in stable condition where she lives independently. Visiting nurse service referral has been initiated and she will be seen for help with medication management as well as other services as deemed necessary. The patient was discharged with a 3-day supply of all of her new medications as she was without a way of picking up medications at the time of discharge. She will pickle sorter the remainder of her 30-day supply on 06/19/18. The patient has a followup with Dr. Funk for 06/19/18 at 2 p.m. We will discuss further direction of care at that time as to whether the patient would like to pursue additional chemotherapy versus transition to hospice. DORI TOVAR [id number]/[facility] #: [id number] MTDDeandra
== END 2018-06-16 13:45 | disposition home or self-care (01) | DRG 947 ==
LOC: ED 14:12 → MED 14:42
PROVIDERS: ADMIT Internal Medicine Hematology & Oncology; ATTEND Internal Medicine Hematology & Oncology
PROC: DWY27ZZ Contact Radiation of Chest (ICD-10-PCS; principal; 2018-06-07)
DX: G89.3 Neoplasm related pain (acute) (chronic) (principal); E43 Unspecified severe protein-calorie malnutrition; C77.9 Secondary and unspecified malignant neoplasm of lymph node, unspecified; C78.00 Secondary malignant neoplasm of unspecified lung; C78.89 Secondary malignant neoplasm of other digestive organs; E87.1 Hypo-osmolality and hyponatremia; K22.10 Ulcer of esophagus without bleeding; M19.90 Unspecified osteoarthritis, unspecified site; F32.9 Major depressive disorder, single episode, unspecified; E11.9 Type 2 diabetes mellitus without complications; R13.10 Dysphagia, unspecified; K59.00 Constipation, unspecified; H53.9 Unspecified visual disturbance; K22.2 Esophageal obstruction; E83.42 Hypomagnesemia; E86.0 Dehydration; C54.1 Malignant neoplasm of endometrium; Z85.42 Personal history of malignant neoplasm of other parts of uterus; Z90.89 Acquired absence of other organs; Z90.710 Acquired absence of both cervix and uterus; Z72.89 Other problems related to lifestyle; Z79.84 Long term (current) use of oral hypoglycemic drugs; Z59.0 Homelessness; Z80.3 Family history of malignant neoplasm of breast; Z91.030 Bee allergy status; Z88.8 Allergy status to other drugs, medicaments and biological substances; Z80.8 Family history of malignant neoplasm of other organs or systems; K20.9 Esophagitis, unspecified; T66.XXXA Radiation sickness, unspecified, initial encounter; R51 Headache; R11.0 Nausea; Z68.22 Body mass index [BMI] 22.0-22.9, adult
CPT/HCPCS: 36415; 77387; 77412; 77427; 80048; 80053; 83036; 83735; 84134; 85025; 85027; 99222; 99232; 99233; 99239; 99284; A9270-GY; G8978-GP-CI; G8978-GP-CJ; G8979-GP-CI; G8987-GO-CI; G8988-GO-CI; G8989-GO-CI; J1170; J1642; J1650; J1885; J2060; J2405; J2997; J3475; J3480

== ENCOUNTER 2018-06-18 17:20 | Observation (INO) | payer MEDICARE ==
--- NOTE | 2018-06-18 17:56 | ED ---
Psychiatric Complaint - HPI Summary HPI Summary: The patient is a 58 y/o F presenting to [facility] brought in as 941 with a chief complaint of possible visual hallucinations today. She reports that she was home when she thought she saw people in her yard, so she called 911; she was then taken by police to [facility]. Here, she did not receive a full work up because she declined, but she saw a neurologist concerning increased blurred vision and headache behind the left eye. She is scheduled for an outpatient Head CT and MRI. After returning home, she called 911 again, and was brought here. She denies SI and HI. Hx of esophageal cancer. - History Of Current Complaint Time Seen by Provider: 06/18/18 17:37 Hx Obtained From: Patient Hx Last Menstrual Period: post menopause Onset/Duration: Lasting Hours, Still Present Severity Initially: Moderate Severity Currently: Moderate Character: Anxious Aggravating Factor(s): Recent Stress - visual hallucinations Alleviating Factor(s): Nothing Associated Signs And Symptoms: Positive: Hallucinating Has Suicidal: Denies: Thoughts Has Homicidal: Denies: Thoughts - Allergies/Home Medications Allergies/Adverse Reactions: Allergies Allergy/AdvReac Type Severity Reaction Status Date / Time bee pollen Allergy Hives Verified 06/06/18 14:35 monosodium glutamate Allergy Headache Verified 06/06/18 14:35 PMH/Surg Hx/FS Hx/Imm Hx Endocrine/Hematology History: Reports: Hx Diabetes Cardiovascular History: Denies: Hx Hypertension, Hx Pacemaker/ICD GI History: Reports: Other GI Disorders - gastritis History: Reports: Hx Renal Disease - RT DISTAL URETERAL STRICTURE., Other Problems/Disorders - Uterine Cancer Musculoskeletal History: Reports: Hx Arthritis - RT HAND Sensory History: Reports: Hx Contacts or Glasses - CONTACTS, WILL WEAR GLASSES DAY OF SURGERY Denies: Hx Hearing Aid Opthamlomology History: Reports: Hx Contacts or Glasses - CONTACTS, WILL WEAR GLASSES DAY OF SURGERY Neurological History: Reports: Other Neuro Impairments/Disorders - concussions x2 Psychiatric History: Reports: Hx Depression Denies: Hx Eating Disorder, Hx Panic Disorder, Hx of Violent Episodes Against Others - Cancer History Cancer Type, Location and Year: UTERINE 2014. LUNG 2018 Hx Chemotherapy: Yes Hx Radiation Therapy: Yes - Surgical History Surgery Procedure, Year, and Place: APPENDECTOMY. ORAL SURGERY. SINUS SURGERY. CARPAL TUNNEL RELEASE. HYSTERECTOMY. CYST REMOVAL 2017. ENDOMETRIAL ABLATION. LAPROSCOPIC ENDOMETRIAL REMOVED FROM CHEST. PORT PLACED Hx Anesthesia Reactions: No - Family History Known Family History: Negative: Cardiac Disease, Hypertension, Diabetes - Social History Alcohol Use: None Alcohol Amount: since CA dx Hx Substance Use: No Substance Use Type: Reports: None Hx Tobacco Use: No Smoking Status (MU): Never Smoked Tobacco Do You Chew or Dip Tobacco: No Have You Chewed or Dipped Tobacco in the LAST YEAR: No Have You Smoked in the Last Year: No Review of Systems Positive: Blurred Vision - in left eye Positive: Headache - behind left eye Positive: Anxious, Other - POSITIVE: visual hallucinations; NEGATIVE: SI, HI, auditory hallucinations All Other Systems Reviewed And Are Negative: Yes Physical Exam - Summary Physical Exam Summary: GENERAL: Patient is a well-developed and nourished female who is lying comfortable in the stretcher. Patient is not in any acute respiratory distress. HEAD AND FACE: Normocephalic EYES: PERRLA, EOMI x 2. EARS: Hearing grossly intact. MOUTH: Oropharynx within normal limits. NECK: Supple, trachea is midline, no adenopathy, no JVD, no carotid bruit. CHEST: Symmetric, no tenderness at palpation LUNGS: Clear to auscultation bilaterally. No wheezing or crackles. CVS: Regular rate and rhythm, S1 and S2 present, no murmurs or gallops appreciated. ABDOMEN: Soft, non-tender. Bowel sounds are normal. No abnormal abdominal pulsations. EXTREMITIES: Full ROM in all major joints, no edema, no cyanosis or clubbing. NEURO: Alert and oriented x 3. No acute neurological deficits. Speech is normal and follows commands. PSYCH: Aggressive upon initial entrance into the room, but she is calmed throughout. She denies SI, HI, auditory, and visual hallucinations at this time. SKIN: Dry and warm Triage Information Reviewed: Yes Vital Signs Reviewed: Yes Diagnostics - Laboratory Result Diagrams: 06/18/18 19:31 06/18/18 19:31 Lab Statement: Any lab studies that have been ordered have been reviewed, and results considered in the medical decision making process. Course/Dx - Course Course Of Treatment: The patient is a 58 y/o F presenting to [facility] brought in as 941 with a chief complaint of possible visual hallucinations today. Upon physical exam, the patient exhibits aggression that is resolved in the room, no SI or HI, no auditory or visual hallucinations. In the ED course, bloodwork reveals RBC of 3.46, Hbg of 10.3, Hct of 31, abs lypmhs of 0.6, INR of 1.38. UA reveals positive protein, ketones, leukocyte esterase, WBC, squamous epithelial cells, hyaline casts, granular casts, and glucose. Toxicology reveals positive opiates. She is given Keflex for dx of UTI. The patient is a sign out to Dr. Tomi Sky MD, at change of shift at 1900 pending medical clearance with Brain CT, MHE, and disposition. - Differential Dx/Clinical Impression Provider Diagnosis: Adjustment reaction to chronic stress, Headache Discharge - Sign-Out/Discharge Documenting (check all that apply): Sign-Out Patient Signing out patient TO: Tomi Sky - Patient is a sign-out at shift change pending medical clearance and MHE. Patient Received Moderate/Deep Sedation with Procedure: No - Discharge Plan Condition: Stable Disposition: ADMITTED TO [facility] - Billing Disposition and Condition Condition: STABLE Disposition: Admitted to [facility] - Attestation Statements Document Initiated by Tomibe: Yes Documenting Scribe: Ainsley Lazaro Provider For Whom Junior is Documenting (Include Credential): Dr. Jennifer Griffin MD Scribe Attestation: Ainsley Dimas scribed for Dr. Jennifer Griffin MD on 06/19/18 at 1302. Scribe Documentation Reviewed: Yes Provider Attestation: The documentation as recorded by the Ainsley miller accurately reflects the service I personally performed and the decisions made by me, Dr. Jennifer Griffin MD Status of Scribe Document: Viewed
--- OUTSIDE RECORDS SUMMARY | 2018-06-18 18:18 | XMS REPORT | Continuity of Care Document ---
:1960 External Reference #:[id number] Author Name mAadou Benson DO Address [address] [place] [address] Care Team Providers Name Role Phone Landon Funk MD Care Team Information Child Psychologist Unavailable Payers Date Identification Numbers Payment Provider Subscriber Policy Number: [id number] Medicare Coni Hutchinson PayID: [id number] [facility] [address] [facility] [place] [address] Advance Directives Description No Information Available Problems Active Problems Provider Date Gastrointestinal tract finding Milagros Reinoso PA-C Onset: 05/22/2018 Esophageal dysphagia Milagros Reinoso PA-C Onset: 05/22/2018 Type 2 diabetes mellitus Milagros Reinoso PA-C Onset: 05/22/2018 Family History Date Family Member(s) Observation Comments Father due to Prostate Cancer () Mother Heart Disease First Sister Breast Cancer Social History Type Date Description Comments Sex Unknown Tobacco Use Start: Unknown Patient has never smoked Smoking Status Reviewed: 05/22/18 Patient has never smoked Allergies, Adverse Reactions, Alerts Description No Known Drug Allergies Medications Active Medications SIG Qnty Indications Ordering Provider Date Omeprazole 1 tablet by mouth 30caps Amadou Benson DO 05/26/2018 40mg daily in Am Capsules DR Eubanks 1 tablet PO q6 90tabs Amadou Benson DO 05/26/2018 4mg Tablets prn nausea Metformin HCL Take 1 Tablet By Unknown 1000mg Mouth Twice A Day Tablets Hydrocodone-Acetamino Take 1 Tab By Unknown phen Mouth Every 6 5-325mg Tablets Hours as Needed Sulfamethoxazole/Trim Take 1 Tablet By Unknown ethoprim DS Mouth Twice A Day 800-160mg Tablets Magnesium Oxide Take 2 Tablets By Unknown 400mg Mouth Twice A Day Tablets [facility] Vitamin B-12 Take 1 Tablet By Unknown Mouth Every Day 1000mcg Tablets History Medications Omeprazole Take 1 Tablet By Mouth Unknown - 05/26/[address] Twice A Day Immunizations Description No Information Available Vital Signs Date Vital Result Comment 05/22/2018 10:05am Height 69 inches 5'9" Weight 164.00 lb BP Systolic 121 mmHg BP Diastolic 80 mmHg Heart Rate 93 /min BMI (Body Mass Index) 24.2 kg/m2 Results Test Date Facility Test Result H/L Range Note Laboratory test 05/23/2018 [facility] [place] [facility] SEE RESULT 1 finding Interface Order BELOW CBC W/Auto 05/20/2018 [facility] White Blood <pending> Differential(!) Count Ser Auto CNT RBC Red Blood Count <pending> Hemoglobin Blood <pending> Hematocrit <pending> MCV (Corpuscular Volume) <pending> MCH (Corpuscular Hemoglobin) <pending> MCHC (Corpuscular Hemog Conc) <pending> RDW <pending> Platelet Count Blood Auto CNT <pending> MPV <pending> Lymph% <pending> Delta% <pending> Neutrophil % <pending> Absolute Lymphocytes <pending> Absolute Monocytes <pending> Absolute Neutrophils <pending> CMP, Magnesium, 05/20/2018 [facility] Magnesium Ser/Plasma <pending> Phosphorus Mass/Vol Phosphorus <pending> CMP(!) 05/20/2018 [facility] Sodium(!) <pending> Potassium(!) <pending> Chloride Serum/Plasma(!) <pending> Carbon Dioxide Ser/Plasm(!) <pending> BUN - Urea Nitrogen(!) <pending> Calcium Ser/Plasma Mass/Vol(!) <pending> Creatinine Serum Mass/Vol(!) <pending> Glucose Serum(!) <pending> BUN/Creatinine Ratio(!) <pending> Albumin Serum/Plasma(!) <pending> Alkaline Phosphatase(!) <pending> Bilirubin Total Mass/Vol(!) <pending> Ast - Sgot <pending> Alt - SGPT <pending> Protein Total <pending> Laboratory test 05/20/2018 [facility] C-Reative Protein <pending> finding Laboratory test 05/20/2018 [facility] Poc Glucose Meter <pending> finding Ua Microscopic(!) 05/20/2018 [facility] Ua WBC <pending> Ua RBC <pending> Ua Epithelial Cells <pending> Ua Crystals <pending> Ua Bacteria <pending> Ua Mucous <pending> Ua Amorphous <pending> Ua Yeast <pending> Ua Casts <pending> 1 SEE RESULT BELOW Name: EMILY HUTCHINSONBERRY Balbuena : [address]: Amadou Benson DO Acct: [id number] Unit: [id number] AGE: 58 Location: ENDOC Re05/23/18 SEX: F Status: DEP REF SPEC: [id number] GLEN: 05/23/18- SUBM DR: Amadou Benson DO REQ: [id number] RECD: 05/23/18 STATUS: DOT CALDWE[place] DR: Landon Funk MD _ ORDERED: LEVEL 4, IMMUNO-FIRST, IMMUNO-ADDL/8, IMMUNO-QUANT/3 FINAL DIAGNOSIS Esophagus, mid at 30 cm, biopsy: -- Invasive adenocarcinoma, moderately differentiated; see comment. COMMENT: The clinical history of metastatic endometrial carcinoma is noted. The morphologic features of this adenocarcinoma are generic and not specific as to site of origin. An in situ component is not seen. Immunohistochemical stains, with appropriately reacting controls, were performed with the following results: CK7 positive CK20 negative CDX 2 focally positive Vimentin positive HER-2/brett negative (1+) MLH-1 intact PMS-2 intact MSH-2 intact MSH-6 intact PD-L1 0% tumor, 0% microenvironment ER strongly positive P63 negative The immunoprofile is most compatible with metastasis from endometrial primary origin; however, could also be compatible with a primary gastroesophageal carcinoma. CONTINUED ON NEXT PAGE DEPARTMENT OF PATHOLOGY, [address] [place] [address] Surjit Rosas M.D. Director [facility] # [id number] RUN DATE: 05/29/18 [facility] LAB LIVE PAGE 2 Patient: EMILY HUTCHINSONBERRY Balbuena [id number] (Continued) CLINICAL HISTORY (Continued) CLINICAL HISTORY Metastatic endometrial carcinoma POST-OPERATIVE DIAGNOSIS EGD: esophagus - 30 cm to 34 cm; extrinsic compression; implant occluded three fourths lumen biopsy; gastric - normal; duodenum - normal GROSS DESCRIPTION The specimen is received in formalin labeled, Biopsy Mid Esophagus at 30 cm, and consists of a 0.5 x 0.4 by up to 0.2 cm aggregate of esquivel-red to white irregular soft tissue fragments which is submitted entirely in one cassette. Signed by and Reported on: Susana Samson MD 05/29/18 1345 END OF REPORT DEPARTMENT OF PATHOLOGY, [address] [place] [address] Surjit Rosas M.D. Director [facility] # [id number] Procedures Date Code Description Status 05/23/2018 48728 EGD+Biopsy Single Or Multiple Completed Encounters Type Date Location Provider Dx Diagnosis Office Visit Gastroenterology Milagros Wilkerson R13.14 Dysphagia, 9 10:00a [facility] [place], pharyngoesophageal PA-C phase R93.3 Abnormal findings on dx imaging of prt digestive tract Plan of Treatment No Information Available
[2018-06-18 18:31] LABS: Urine Appearance Cloudy; Urine Bacteria Absent (Absent); Urine Bilirubin Negative (Negative); Urine Blood Negative (Negative); Urine Color Amber; Urine Glucose 1+(50 mg/dL) (Negative); Urine Granular Casts Present (Absent); Urine Ketones 1+ (Negative); Urine Nitrite Negative (Negative); Urine Protein 2+(100 mg/dL) (Negative); Urine Red Blood Cell Trace(0-2/hpf) (Absent); Urine Specific Gravity 1.025 (1.010-1.030); Urine Squamous Epithelial Cell Present (Absent); Urine Urobilinogen Negative (Negative); Urine White Blood Cell 3+(>20/hpf) (Absent)
[2018-06-18] MEDS ORDERED: Cephalexin CAP* 500 MG PO ONE (18:40)
[2018-06-18 18:49] LABS: Urine Benzodiazepine Screen None Detected (None Detect); Urine Opiates Screen Presumptive Positive (None Detect)
--- NOTE | 2018-06-18 19:21 | ED ---
Progress - Progress Note Progress Note: The patient is a sign-out from Dr. Jennifer Griffin MD, to Dr. Tomi Sky MD at change of shift at [address] brain, medical clearance, and MHE. Brain CT reviewed by radiologist shows: 1. Minimal sphenoid, ethmoid and inferior frontal sinus disease, new since 04/24/2013. 2. Otherwise negative noncontrast head CT with no change intracranially since the prior study. Dr. Sky has reviewd this radiology report. GCS: 15 At 2047 patient is medically cleared for MHE. At 0035, following consultation with MHU, patient will be held for psychiatric evaluation by Dr. He in the morning. The patient will be signed out from Dr. Tomi Sky MD to Dr. Jennifer Griffin MD at change of shift at 0700 pending MHE. Course/Dx - Course Course Of Treatment: The patient is a sign-out from Dr. Jennifer Griffin MD, to Dr. Tomi Sky MD at change of shift at [address] brain, medical clearance, and MHE. Brain CT reviewed by radiologist shows: 1. Minimal sphenoid , ethmoid and inferior frontal sinus disease, new since. 04/24/2013. 2. Otherwise negative noncontrast head CT with no change intracranially since the prior study. Dr. Sky has reviewd this radiology report. GCS: 15. At 2047 patient is medically cleared for MHE. At 0035, following consultation with U , patient will be held for psychiatric evaluation by Dr. He in the morning. The patient will be signed out from Dr. Tomi Sky MD to Dr. Jennifer Griffin MD at change of shift at 0700 pending MHE. - Diagnoses Provider Diagnoses: Psychosis Discharge - Sign-Out/Discharge Documenting (check all that apply): Sign-Out Patient, Receiving Sign-Out Signing out patient TO: Jennifer Griffin - Patient signed-out upon shift change pending MHE Receiving patient FROM: Jennifer Griffin - Patient received upon shift change pending brain CT, medical clearance, and MHE - Discharge Plan Referrals: [facility]YSICIAN REFERRAL [Outside] - Attestation Statements Document Initiated by Scribe: Yes Documenting Scribe: Enrico Verde Provider For Whom Scribe is Documenting (Include Credential): Tomi Sky MD Scribe Attestation: I, Enrico Verde, scribed for Tomi Sky MD on 06/19/18 at 0313. Status of Scribe Document: Ready
[2018-06-18 19:41] LABS: ABS Lymphocytes 0.6 10^3/ul (1.0-4.8); ABS Monocytes 0.4 10^3/ul (0-0.8); ABS Neutrophils 3.4 10^3/ul (1.5-7.7); Eosinophil % 0.9 %; Hematocrit 31 % (35-47); Hemoglobin 10.3 g/dL (12.0-16.0); Lymphocyte % 12.9 %; Mean Corpuscular HGB Conc 33 g/dL (31-36); Mean Corpuscular Hemoglobin 30 pg (27-31); Mean Corpuscular Volume 89 fL (80-97); Mean Platelet Volume 8.1 fL (7.4-10.4); Nucleated Red Blood Cells % 0.2; Platelet Count 263 10^3/uL (150-450); Red Blood Count 3.46 10^6 /uL (3.70-4.87); Red Cell Distribution Width 12 % (10.5-15); White Blood Count 4.3 10^3/uL (3.5-10.8)
[2018-06-18 19:45] LABS: INR 1.38 (0.82-1.09)
[2018-06-18 19:56] LABS: ALT 9 U/L (7-52); AST 15 U/L (13-39); Albumin 3.7 g/dL (3.2-5.2); Albumin/Globulin Ratio 1.2 (1-3); Alkaline Phosphatase 53 U/L (34-104); Anion Gap 13 mmol/L (2-11); BUN/Creatinine Ratio 19.5 (8-20); Blood Urea Nitrogen 16 mg/dL (6-24); CO2 Carbon Dioxide 25 mmol/L (22-32); Calcium 9.4 mg/dL (8.6-10.3); Chloride 102 mmol/L (101-111); EGFR African American 86.6 (>60); EGFR Non-African American 71.6 (>60); Globulin 3.1 g/dL (2-4); Glucose 139 mg/dL (70-100); Potassium 3.4 mmol/L (3.5-5.0); Sodium 140 mmol/L (135-145); Total Protein 6.8 g/dL (6.4-8.9)
[2018-06-18 20:18] LABS: Alcohol < 10 mg/dL (<10)
[2018-06-18 20:38] LABS: Acetaminophen < 15 mcg/mL; Salicylate < 2.50 mg/dL (<30)
[2018-06-18 20:46] LABS: Erythrocyte Sed Rate 40 mm/Hr (0-29)
[2018-06-18] MEDS ORDERED: HYDROmorphone TAB* 4 MG PO ONE (20:48)
[2018-06-19] MEDS ORDERED: Ketorolac TAB * 10 MG TAB PO ONE (00:55)
--- NOTE | 2018-06-19 07:10 | ED ---
Progress - Progress Note Progress Note: Receiving sign out from Dr. Sky at shift change, pending MHE. Pt's condition has been stable. She is admitted to Lora Gloria NP. Course/Dx - Course Course Of Treatment: Pt is a 58 y/o female who presents to the ED c/o hallucinations. Pt's condition has been stable. As per Dr. Milian, he believes that she can be discharged to follow up outpatient. Yesterday pt had pain behind her left eye, so a CT was done. ESR was found to be elevated at 40. Pt denies any visual changes, however given the headache in the context of the elevated ESR will treat with steroids for pending GCA rule out. Pt was given Decadron in the course. She is to follow up with neurology and vascular surgery. Final dx are adjustment stress and headache. Case discussed with Lora Gloria NP. I discussed results with patient. The patient agrees with this plan. - Diagnoses Provider Diagnoses: Adjustment reaction to chronic stress, Headache - Provider Notifications Discussed Care Of Patient With: Diego Milian Time Discussed With Above Provider: 09:10 Instructed by Provider To: Other - Pt can be discharged as per operations officer with a final dx of adjustment stress. At 11:00 Lora Gloria NP accepts pt for admission. Discharge - Sign-Out/Discharge Documenting (check all that apply): Patient Departure - Admit, Receiving Sign- Out Receiving patient FROM: Tomi Sky Patient Received Moderate/Deep Sedation with Procedure: No - Discharge Plan Condition: Stable Disposition: ADMITTED TO [facility] - Billing Disposition and Condition Condition: STABLE Disposition: Admitted to [facility] - Attestation Statements Document Initiated by Tomibe: Yes Documenting Scribe: Daniela Cabral Provider For Whom Junior is Documenting (Include Credential): Jennifer Griffin MD Scribe Attestation: Daniela Dimas scribed for Jennifer Griffin MD on 06/19/18 at 1303. Scribe Documentation Reviewed: Yes Provider Attestation: The documentation as recorded by the Daniela miller accurately reflects the service I personally performed and the decisions made by me, Jennifer Griffin MD Status of Scribe Document: Viewed
[2018-06-19] MEDS ORDERED: HYDROmorphone TAB* 4 MG PO ONE (07:50)
[2018-06-19] MEDS ORDERED: Dexamethasone IV* 4 MG/ML 1 ML (4 MG) IM ONE (09:15)
[2018-06-19] MEDS ORDERED: Ketorolac INJ* 15 MG/ML 1 ML VIAL IV PUSH ONE (11:47)
[2018-06-19] MEDS ORDERED: fentaNYL PATCHs 100 MCG/HR TRANSDERM SCH (12:00)
[2018-06-19] MEDS: Enoxaparin(*) 40 MG/0.4 ML SYR SUBCUT SCH (12:50)
[2018-06-19] MEDS: Sucralfate TAB* 1 GM PO SCH ×3 (12:51→22:04)
[2018-06-19] MEDS: HYDROmorphone TAB* 4 MG PO PRN ×3 (13:13→22:04)
[2018-06-19] MEDS: fentaNYL Patch Check Q Shift 1 NOTE FOLLOW UP SCH (18:43)
[2018-06-19] MEDS ORDERED: Ondansetron INJ* 2 MG/ML VIAL ONE (22:00)
[2018-06-19] MEDS: Magnesium Oxide TAB* 400 MG PO SCH (22:04)
[2018-06-19] MEDS: QUEtiapine TAB* 25 MG PO SCH (22:05)
--- NOTE | 2018-06-19 22:42 | CONS ---
CONSULTATION REPORT: DATE OF CONSULT: 06/19/18 DATE OF ADMISSION: 06/19/18 ATTENDING PHYSICIAN: Lora Gloria NP. CONSULTING PHYSICIAN: Dr. Diego Milian. REASON FOR CONSULT: Assessment of probable psychotic symptoms as well as ability to make informed medical decisions. SUBJECTIVE HISTORY: Psychiatry is asked to see this 58-year-old white female with a remote history of depression, who was just discharged from the medical service on 06/16/18, who is now brought back by the [facility]'s Department after she had made several phone calls to their Law Enforcement Agency complaining of armed intruders on her property. The police investigated, but did not see any evidence of foul play and brought her here for an evaluation. When I speak with the patient upstairs, she is accompanied by her sister, Jenniffer, and her iskcdne-ky-uab, Lon Figueroa, who have just arrived from [place] to visit. The patient's account is that after discharge she continued to be quite uncomfortable and was not able to sleep despite large amounts of pain medications. She started to experience intruders on her property including a woman who was meddling with her mailbox. She called the police initially on 06/17/18, and was brought to [facility], where she briefly met with a urologist. At that time, she advocated for her discharge and was sent home to her house in [place]. Thereafter, she continued to see men armed with automatic weapons. She states that the police arrested 3 of the intruders, but several others were still there destroying her property. I asked what their motivation could be and she states, "To take my property over." Interestingly, the sister states that she has been to the property and notes that she found tire tracks around the house that could possibly have been from intruders. She also noticed that the antenna was broken on a trailer and that one of the safety fences was down. The sister indicates that there has been criminal activity before on the property as people have stolen items from various storage sheds including an industrial stove. The sister is also concerned that perhaps the patient's blood glucose was elevated and that this caused problems with the patient's thinking. Apparently, the patient has been suffering blurred vision recently and she has a history of metastatic uterine cancer. The Medical Service tried to conduct an MRI of her brain during her most recent visit, but the patient states that she was too stressed and could not tolerate the procedure. At this time, the patient understands that she does need a brain MRI and she is willing to undergo sedation for this. She understands the need for it as well as the risks involved in refusing the procedure, which could include missing a diagnosis of a metastatic brain lesion. The patient's biggest concern is that her only child, a daughter who is 22, is graduating from nursing school this weekend in [place] and the patient would like to be there for both the pinning and graduation ceremonies. Symptomatically, the patient is denying suicidal or homicidal thoughts. She does endorse extreme difficulty sleeping secondary to significant pain in her back and esophagus. She is quite paranoid, delusional with apparent hallucinations on examination. PAST PSYCHIATRIC HISTORY: The patient had 1 prior psychiatric admission at [facility] in 2015, in which she was admitted and discharged within 1 day after presenting with suicidal ideations with several psychosocial stressors such as recently losing her apartment and breaking up with her previous . She denies having been put on medication at that time, although later she states that she was placed on an unknown antidepressant at the [facility] in [place]. She denies any formal suicidal attempts. Past substance abuse historyis noncontributory. PAST MEDICAL HISTORY: Medical history is significant for recurrent endometrial cancer, status post hysterectomy in 2013. 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 She also has arthritis, diabetes mellitus, history of appendectomy, history of carpal tunnel surgery, history of sinusitis, history of recent urinary tract infection, and history of acute sinus infection currently. Oral surgery to her lower jaw in 1969. SOCIAL HISTORY: The patient was born and raised in [place], [place], the youngest of 3 sisters. One of her sisters lives in [place] and the other resides in [place]. The 3 of them own property together which used to belong to their parents who are now . The patient does have a 22-year- old daughter who is graduating from nursing school in [place]. The patient has been once and to a man named, Jabari, who is the father of her daughter. She does have a bachelor's degree from [employer] and later went on to get a culinary arts degree at [employer] in [place], [place]. 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 Currently, she is on leave while she is undergoing medical treatment. The patient has significant financial difficulties and relies on food pantries both in [place] and here in [place] to feed herself. She does have a truck, but it is currently not working. The patient was raised Voodoo, but is not necessarily practising. She has no significant legal history. MENTAL STATUS EXAM: The patient is a middle-aged white female with short, graying hair who appears to be significantly older than her stated age. She is dressed in a patient gown, sitting up in bed, makes fairly good eye contact. Speech has a normal rate, tone, and volume. Mood appears to be irritable with a mildly labile affect. Thought process is tangential at times, although she is able to respond to questions. Many of her responses seem confabulatory, in particular about the incident on her property leading to hospitalization. She does appear to endorse visual hallucinations of the intruders at home. She further endorses delusional paranoid beliefs of armed men coming onto her property. She denies suicidal or homicidal ideations. Insight and judgment are markedly impaired given her assertions that appear to be psychotic in nature. Cognitively, she is vague and alert. She is fully oriented to both person and time as well as situation and her memory is fairly intact with good attention and command following skills. DIAGNOSES: [place] I: Unspecified psychotic disorder, rule out psychosis secondary to medications versus psychosis secondary to brain pathology. [place] II: Deferred. IMPRESSION: The patient is a 58-year-old white female with a history of brief psychiatric hospitalization in 2016, who was just discharged from the medical service on 06/16/18 following an extended hospitalization for esophageal metastasis of her endometrial cancer, who now returns to the hospital via police after making phone calls to [facility]'s Department complaining of armed intruders on her property. Although her family cannot rule out the possibility that there were people coming on to their land, I find it difficult to believe that her assertions are based in reality. I think it is highly probable that she is psychotic as a combination of either brain pathology or some toxic sequelae of multiple pain medications compounded by lack of sleep. At this time, I do feel that she has capacity given the fact that she can show some ability to work with medical information and that she understands the risks of refusing treatment. RECOMMENDATIONS TO PRIMARY TEAM: Psychiatry recommends initiation of quetiapine 50 mg p.o. q.h.s. for psychosis. It will be interesting to see whether the MRI scheduled for tomorrow reveals anything provided that the test can be successfully performed. If the patient choses to leave against medical advice, however, I do feel that she has capacity to do so. I do not believe that she is a risk to herself or others and is not warranting inpatient BSU treatment at this time. Psychiatry is grateful for the consultation and will continue to follow the patient's course along with the primary team. [id number]/[facility] #: [id number] TITUS
[2018-06-20] MEDS: Ondansetron INJ* 2 MG/ML VIAL IV PRN ×2 (02:37→21:04)
[2018-06-20] MEDS: HYDROmorphone TAB* 4 MG PO PRN ×4 (03:50→18:26)
[2018-06-20] MEDS: Sucralfate TAB* 1 GM PO SCH ×2 (06:16→12:57)
[2018-06-20 06:52] LABS: ABS Lymphocytes 0.4 10^3/ul (1.0-4.8); ABS Monocytes 0.4 10^3/ul (0-0.8); ABS Neutrophils 4.7 10^3/ul (1.5-7.7); Eosinophil % 0.1 %; Hematocrit 30 % (35-47); Hemoglobin 10.3 g/dL (12.0-16.0); Lymphocyte % 7.6 %; Mean Corpuscular HGB Conc 34 g/dL (31-36); Mean Corpuscular Hemoglobin 30 pg (27-31); Mean Corpuscular Volume 88 fL (80-97); Platelet Count 240 10^3/uL (150-450); Red Cell Distribution Width 12 % (10.5-15); White Blood Count 5.5 10^3/uL (3.5-10.8)
[2018-06-20] MEDS: fentaNYL Patch Check Q Shift 1 NOTE FOLLOW UP SCH ×2 (06:55→19:14)
[2018-06-20 07:06] LABS: Albumin 3.6 g/dL (3.2-5.2); Albumin/Globulin Ratio 1.2 (1-3); BUN/Creatinine Ratio 27.4 (8-20); Calcium 9.1 mg/dL (8.6-10.3); EGFR African American 119.6 (>60); EGFR Non-African American 98.9 (>60); Globulin 3.1 g/dL (2-4); Potassium 3.3 mmol/L (3.5-5.0); Total Bilirubin 0.3 mg/dL (0.2-1.0); Total Protein 6.7 g/dL (6.4-8.9)
[2018-06-20] MEDS: Pantoprazole TAB * 40 MG TAB PO SCH (08:21)
--- NOTE | 2018-06-20 10:36 | PN ---
Progress Note - Progress Note Date of Service: 06/20/18 SOAP: Subjective: []Admitted yesterday OBV d/t delusion thought process and need to evaluate for safety at home. Seen by psychiatry yesterday and started on Seroquel with confirmation of capacity. She has been NPO today for planned MRI of brain with anesthesia. Pain reasonably controlled, rated at 4/10. Much calmer this AM and apologies, "I was just so overwhelmed." Does not remember much of the events of the afternoon, evening, and overnight. Slept well. Understands plan for MRI with anesthesia today. Sister is in town (though not present during assessment). Medications: Cyanocobalamin (Vitamin B12 Tab*) 1,000 mcg PO DAILY [facility] Enoxaparin Sodium (Lovenox(*)) 40 mg SUBCUT Q24H [facility] Last Admin: 06/19/18 12:50 Dose: 40 mg Fentanyl (Duragesic Patch 100 Mcg/Hr *) 100 mcg TRANSDERM Q72H [facility] Last Admin: 06/19/18 12:49 Dose: 100 mcg Hydromorphone HCl (Dilaudid Tab*) 4 mg PO Q4H PRN PRN Reason: PAIN Last Admin: 06/20/18 08:21 Dose: 4 mg Magnesium Oxide (Magox 400 Tab*) 800 mg PO BID [facility] Last Admin: 06/19/18 22:04 Dose: 800 mg Ondansetron HCl (Zofran Inj*) 8 mg IV Q6H PRN PRN Reason: NAUSEA Last Admin: 06/20/18 02:37 Dose: 4 mg Pantoprazole Sodium (Protonix Tab*) 40 mg PO DAILY [facility] Last Admin: 06/20/18 08:21 Dose: 40 mg Pharmacy Profile Note (Fentanyl Patch Check Q Shift) 1 note FOLLOW UP 0700, 1900 [facility] Last Admin: 06/20/18 06:55 Dose: 1 note Quetiapine Fumarate (Seroquel Tab*) 50 mg PO BEDTIME [facility] Last Admin: 06/19/18 22:05 Dose: 50 mg Sucralfate (Carafate*) 1 gm PO Q6H [facility] Last Admin: 06/20/18 06:16 Dose: 1 gm Objective: [] Vital Signs Temp Pulse Resp BP Pulse Ox 98.0 F 73 16 124/63 99 06/20/18 07:18 06/20/18 07:18 06/20/18 08:21 06/20/18 07:18 06/20/18 07:18 A&Ox3, EOMI, neuro grossly non-focal HRR, S1S2 LS Clear +BS, soft with mild diffuse gastric tenderness Laboratory Results - last 24 hr 06/20/18 06/20/18 06:20 06:20 WBC 5.5 RBC 3.40 L Hgb 10.3 L Hct 30 L MCV 88 MCH 30 MCHC 34 RDW 12 Plt Count 240 MPV 8.0 Neut % (Auto) 85.6 Lymph % (Auto) 7.6 [place] % (Auto) 6.6 Eos % (Auto) 0.1 Baso % (Auto) 0.1 Absolute Neuts (auto) 4.7 Absolute Lymphs (auto) 0.4 L Absolute Monos (auto) 0.4 Absolute Eos (auto) 0.0 Absolute Basos (auto) 0.0 Absolute Nucleated RBC 0.0 Nucleated RBC % 0.0 Sodium 136 Potassium 3.3 L Chloride 101 Carbon Dioxide 27 Anion Gap 8 BUN 17 Creatinine 0.62 Est GFR ( Amer) 119.6 Est GFR (Non-Af Amer) 98.9 BUN/Creatinine Ratio 27.4 H Glucose 222 H Calcium 9.1 Total Bilirubin 0.30 AST 11 L ALT 9 Alkaline Phosphatase 53 Total Protein 6.7 Albumin 3.6 Globulin 3.1 Albumin/Globulin Ratio 1.2 Assessment: []58 yo female with metastatic endometrial cancer s/p palliative RT to distal esophagus (extrinsic compression) complicated by continued pain. She was admitted yesterday due to safety concerns with delusional thought patterns and was started on Seroquel which appears to have already provided some benefit. Plan: []1. Psychosis: appreciate psychiatry input - cont. Seroquel - recommend outpatient care as well 2. 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 Hypokalemia: NPO d/t test - replace with IV today and can repeat labs as outpatient if d/c'd
[2018-06-20] MEDS: Magnesium Oxide TAB* 400 MG PO SCH ×2 (10:57→21:03)
[2018-06-20] MEDS: Cyanocobalamin TAB* 500 MCG PO SCH (10:57)
[2018-06-20] MEDS ORDERED: KCL 10 MEQ/50 ML IVPREMIX* 10 MEQ/50 ML BAG IV ONE (11:50)
[2018-06-20] MEDS ORDERED: Buffered Lidocaine 1% SYRIN* 1 ML/SYRINGE INTRADERM ONE (12:30)
[2018-06-20] MEDS: Enoxaparin(*) 40 MG/0.4 ML SYR SUBCUT SCH (12:43)
[2018-06-20] MEDS: Sucralfate SUSP 1 GM/10 ml 10 ML UDC PO SCH ×3 (12:44→21:04)
[2018-06-20] MEDS: Lactated Ringers 1000 ML Bag* 1,000 ML IV SCH (13:00)
[2018-06-20] MEDS ORDERED: Propofol* 10 MG/ML 20 ML BTL ONE (15:38)
[2018-06-20] MEDS ORDERED: fentaNYL* 50 MCG/ML 2 ML VIAL (100 MCG VIAL) ONE (15:38)
[2018-06-20] MEDS ORDERED: Midazolam* 1 MG/ML 2 ML VIAL (2 MG) ONE (15:38)
[2018-06-20] MEDS ORDERED: Ondansetron INJ* 2 MG/ML VIAL ONE ×2 (15:38→18:13)
[2018-06-20] MEDS ORDERED: Succinylcholine* 20 MG/ML 10 ML VIAL ONE (15:38)
[2018-06-20] MEDS ORDERED: Naloxone* 0.4 MG/ML 1 ML VIAL IV PRN (15:40)
[2018-06-20] MEDS ORDERED: diPHENhydraMINE IV* 50 MG/ML 1 ml VIAL (BENADRYL) IV PRN (15:40)
[2018-06-20] MEDS ORDERED: PROCHLORPERAZINE INJ 5 MG/ML 2 ML VIAL IV PRN (15:40)
[2018-06-20] MEDS ORDERED: Ondansetron INJ* 2 MG/ML VIAL IV PRN (15:40)
[2018-06-20] MEDS ORDERED: Famotidine IV* 10 MG/ML 2 ML (20 mg) ONE (16:14)
[2018-06-20] MEDS ORDERED: Gadoteridol* (CONTRAST) 279.3 MG/ML 10 ML IV ONE (17:19)
[2018-06-20] MEDS ORDERED: HYDROmorphone TAB* 4 MG PO ONE (20:42)
[2018-06-20] MEDS: Potassium Chlor TAB* 20 MEQ TAB.ER PO SCH (21:03)
[2018-06-20] MEDS: QUEtiapine TAB* 25 MG PO SCH (21:04)
[2018-06-21] MEDS: HYDROmorphone TAB* 4 MG PO PRN ×3 (01:15→08:45)
[2018-06-21] MEDS: Lactated Ringers 1000 ML Bag* 1,000 ML IV SCH (01:17)
[2018-06-21] MEDS: Ondansetron INJ* 2 MG/ML VIAL IV PRN (04:37)
[2018-06-21] MEDS: fentaNYL Patch Check Q Shift 1 NOTE FOLLOW UP SCH (07:13)
[2018-06-21] MEDS: Sucralfate SUSP 1 GM/10 ml 10 ML UDC PO SCH ×2 (09:35→16:00)
[2018-06-21] MEDS: Cyanocobalamin TAB* 500 MCG PO SCH (09:38)
[2018-06-21] MEDS: Pantoprazole TAB * 40 MG TAB PO SCH (09:38)
[2018-06-21] MEDS: Magnesium Oxide TAB* 400 MG PO SCH ×2 (09:38→10:41)
[2018-06-21] MEDS: Potassium Chlor TAB* 20 MEQ TAB.ER PO SCH (09:38)
[2018-06-21] MEDS ORDERED: Ketorolac TAB * 10 MG TAB PO ONE (11:20)
--- NOTE | 2018-06-21 11:23 | DS ---
- Discharge Summary Admission Date: 06/19/18 Discharge Date: 06/21/18 Discharge Diagnosis: 1. Psychosis: on seroquel and appears improved, no pathologic process in [employer] 2. Endometrial Cancer: s/p palliative RT to distal esophageal area, pain stable 3. DM: resume home meds Discharge Medications: Medication Instructions Recorded Confirmed Type Cyanocobalamin TAB* [Vitamin B12 1,000 mcg PO DAILY 05/23/18 06/18/18 History TAB*] Magnesium Oxide TAB* [MagOx 400 800 mg PO BID 06/06/18 06/18/18 History TAB*] Multivitamins/Minerals TAB* 1 tab PO DAILY 06/06/18 06/18/18 History [Theragran/minerals TAB*] metFORMIN* [Glucophage 1000 MG TAB 1,000 mg PO BID 06/06/18 06/18/18 History *] Ketorolac TAB * [Toradol TAB *] 10 mg PO DAILY PRN #30 tab 06/16/18 06/18/18 Rx Pantoprazole TAB * [Protonix TAB*] 40 mg PO DAILY #30 tab 06/16/18 06/18/18 Rx Sucralfate SUSP (NF) [Carafate 1 gm PO Q6H #120 g 06/16/18 06/18/18 Rx SUSP (NF)] fentaNYL PATCHs 100 MCG/HR* 100 mcg TRANSDERM Q72H #10 patch 06/16/18 06/18/18 Rx [Duragesic Patch 100 Mcg/Hr *] MDD 100 mcg q72h HYDROmorphone TAB* [Dilaudid Tab*] 4 mg PO Q3H PRN tab 06/21/18 Rx Potassium Chlor TAB* [Potassium 20 meq PO DAILY #30 tab.er 06/21/18 Rx Chlor TAB 20 MEQ*] QUEtiapine TAB* [Seroquel 25 MG 50 mg PO BEDTIME #60 tab 06/21/18 Rx TAB*] Disposition: Good Diet: as tolerated, recommend soft, consistent carbs Activity: as tolerated, fall precautions Hospital Course: Please see admission note for full H&P, however, briefly, Ms. Dawson is well known to our service due to her unfortunate diagnosis of advanced endometrial cancer most recently progressed at the area of the distal esophagus s/p palliative RT to the area. Her course has been complicated by her psychosocial situation both with insurance issues and her desire for interventions. Most recently she has struggled with pain control, though has been essentially stable on Fentanyl and dilaudid. Ms. Dawson presented to the ER on 06/18 via police with concern for her safety as she was seeing things and acting delusional. Initially she was cleared for discharge however her sister was on her way into town and Ms. Dawson was not able to voice a safe process for being at home and therefore she was admitted for observation due to significant concerns for psychosis and safety. She was seen by psychiatry and deemed competent to make decisions regarding her care and started on Seroquel for her psychosis. During her work-up she an MRI of the brain was ordered to rule out an underlying pathologic component (from her cancer) with anesthesiology due to her severe claustrophobia. This was completed late in the afternoon on 06/20 and was negative. Due to anesthesia recovery she was monitored overnight and todays is in good condition for discharge home. She continues to complain of pain requesting toradol (despite appearing comfortable following dilaudid) and although we have reviewed the risk of bleeding she would like to continue this. Ms. Dawson's sister, Eryn, is currently in town and will provide transportation to her pharmacy and home, we have requested she accompany Ms. Dawson to her follow-up with Dr. Funk (primary oncologist) on 06/23. We will also assist with outpatient referral for continued pychiatric care at this time. Ms. Dawson is agreeable to discharge and follow-up plan and denies further questions. Plan of care reviewed at length, >40 min spent with >50% face to face counseling.
[2018-06-21 12:08] VITALS: BP 144/71
[2018-06-21 13:00] LABS: Albumin 3.4 g/dL (3.2-5.2); Albumin/Globulin Ratio 1.2 (1-3); BUN/Creatinine Ratio 11.8 (8-20); Calcium 8.8 mg/dL (8.6-10.3); EGFR African American 107.5 (>60); EGFR Non-African American 88.9 (>60); Globulin 2.8 g/dL (2-4); Potassium 3.4 mmol/L (3.5-5.0); Total Bilirubin 0.6 mg/dL (0.2-1.0); Total Protein 6.2 g/dL (6.4-8.9)
[2018-06-21] MEDS: Enoxaparin(*) 40 MG/0.4 ML SYR SUBCUT SCH (15:59)
== END 2018-06-21 17:00 | disposition home or self-care (01) ==
LOC: ED 17:20 → MED 06-19 11:17
PROVIDERS: ADMIT Internal Medicine Hematology & Oncology; ATTEND Internal Medicine Hematology & Oncology
DX: F29 Unspecified psychosis not due to a substance or known physiological condition (principal); C54.1 Malignant neoplasm of endometrium; C79.9 Secondary malignant neoplasm of unspecified site; E11.9 Type 2 diabetes mellitus without complications; Z79.84 Long term (current) use of oral hypoglycemic drugs; F43.9 Reaction to severe stress, unspecified; R51 Headache; R44.3 Hallucinations, unspecified; H53.8 Other visual disturbances; Z79.899 Other long term (current) drug therapy; F32.9 Major depressive disorder, single episode, unspecified; N28.9 Disorder of kidney and ureter, unspecified; E87.6 Hypokalemia
CPT/HCPCS: 36415; 70450; 70553; 80053; 80307; 80320; 80329; 81003; 81015; 83605; 85025; 85610; 85652; 87086; 96365; 96372; 96375; 99219; 99233; 99285; A9270-GY; A9579; G0378; G0480; J0330; J1100; J1642; J1650; J1885; J2250; J2405; J2704; J3010; J3480